=== PATIENT | female | born 1945 | race African-American/Black ===

== ENCOUNTER 2016-08-13 12:06 | Emergency (ER) | payer MEDICARE, OTHER ==
[~2016-08-13] VITALS: Ht 165.1 cm; Wt 59.0 kg
[~2016-08-13 12:06] MED LIST: ALIGN4 M1 PO; ALPRAZOLAM0.5 MG ORAL; AMITRIPTYLINE25 MG ORAL; ANUSOL-HC25 MG RECTAL; ASPIR 8181 MG ORAL; CARAFATE1 G1 ORAL; CITRACAL + D E1 EACH PO; COLACE100 MG ORAL; CREON DR 24,001 EACH PO; DEXILANT60 MG ORAL; DICYCLOMIN10 MG/5 M1 PO; DILAUDID4 MG ORAL; DIOVAN40 MG ORAL; FLAGYL500 MG ORAL; FLOMAX0.4 MG ORAL; FLOMAX0.4 MG PO; FOSAMAX70 MG ORAL; LEVAQUIN250 M1 ORAL; LINZESS145 MCG PO; LOVENOX120 MG/0.8 SUBQ; LYRICA100 MG ORAL; METFORMIN HCL500 M1 ORAL; MIRALAX17 GM ORAL; NORVASC5 MG ORAL; OXYCODONE HCL30 MG ORAL; OXYCONTIN40 M1 ORAL; OXYCONTIN60 MG ORAL; PROTONIX40 MG ORAL; REGLAN5 MG ORAL; TIZANIDINE HCL4 MG ORAL; VANCOMYCIN; VITAMIN D250000 UNI1 ORAL; VOLTAREN100 G1 TP; XARELTO10 MG ORAL; ZOFRAN4 M3 PO; ZOFRAN4 MG ORAL; ZOFRAN8 MG ORAL; lyrica PO
--- NOTE | 2016-08-13 12:44 | Emergency Room Report ---
History of Present Illness General Chief Complaint: Back Pain-No Injury Source: Patient, Medical Record (Dyana Putnam) Present Illness HPI 71-year-old female presents to emergency Department complaining of exacerbation of her chronic back pain. Patient states she was sent to ER for pain injection. Patient states she is currently being seen by Dr. Osborn and a pain management doctor for chronic back pain sustained in 1999 and patient has had a total of 3 surgeries and is having a fourth surgery currently planned. Patient states she takes oral Dilaudid 2 mg intermittently as needed for pain. Pt reports 10/10 lower back pain that radiates down into the left leg with certain positions. Patient states she took one yesterday before bed and this morning with no relief. Patient states she called her doctor this morning and he told her to go to the ER for an injection. Patient denies fall or new injury patient states she believes her pain was exacerbated after going grocery shopping yesterday. Denies numbness tingling or loss of sensation or gross motor movements of the extremities, incontinence of bowel or bladder. Denies CP , Palpitations, LOC, AMS, dizziness, Changes in Vision, Sensation, paresthesias , or a sudden severe headache. She reports history of anemia, prediabetes she denies history of cancer. Denies nausea, vomiting, fevers, chills. (Dyana Putnam) Allergies: Coded Allergies: AMOXICILLIN (Verified Allergy, Unknown, RASH, 06/29/14) CORTISONE (Verified Allergy, Unknown, 06/29/14) KETOROLAC (Verified Allergy, Unknown, 06/29/14) PENICILLINS (Verified Allergy, Unknown, 06/29/14) Patient History Past Medical History: see triage record Past Surgical History: none Pertinent Family History: none Now: No Immunizations: UTD Reviewed Nursing Documentation: PMH: Agreed, PSxH: Agreed (Dyana Putnam) Nursing Documentation-PMH Past Medical History: No History, Except For Hx Cardiac Problems: Yes - Anemia Hx Hypertension: Yes Hx Pacemaker: No Hx Asthma: No - LUPUS, ARTHRITIS Hx COPD: Yes Hx Diabetes: Yes Hx Cancer: Yes Hx Gastrointestinal Problems: No - Pancreatitis Hx Dialysis: No Hx Neurological Problems: Yes Hx Transient Ischemic Attacks: Yes Hx Seizures: Yes - 20 yrs ago Hx Vertigo: Yes Hx Headaches: Yes Hx Weakness: Yes (Dyana Putnam) Review of Systems All Other Systems: negative except mentioned in HPI (Dyana Putnam) Physical Exam Vital Signs Date Time Temp Pulse Resp B/P Pulse Ox O2 Delivery O2 Flow Rate FiO2 08/13/16 12:21 98.2 75 16 144/69 98 Room Air Sp02 EP Interpretation: reviewed, normal General Appearance: no apparent distress, alert, GCS 15, non-toxic Head: normocephalic, atraumatic Eyes: bilateral eye PERRL, bilateral eye normal inspection ENT: hearing grossly normal, normal pharynx, no angioedema, normal voice Neck: full range of motion, supple/symm/no masses Respiratory: chest non-tender, lungs clear, normal breath sounds, speaking full sentences Cardiovascular #1: regular rate, rhythm, no edema Gastrointestinal: normal bowel sounds, non tender, soft, no guarding, no rebound Rectal: deferred Genitourinary: normal inspection, no CVA tenderness Musculoskeletal: back normal, gait/station normal, normal range of motion, no calf tenderness, tender - midline and left paraspinal TTP with surgical scar noted in the Lumbar spinal area, no Thoracic or cervical midline TTP. Neurologic: alert, oriented x3, responsive, motor strength/tone normal, sensory intact, speech normal Psychiatric: judgement/insight normal, memory normal, mood/affect normal, no suicidal/homicidal ideation Reflexes: 4+ bicep (R), 4+ bicep (L), 4+ tricep (R), 4+ tricep (L), 4+ knee (R) , 4+ knee (L) Skin: normal color, no rash, warm/dry, well hydrated Lymphatic: no adenopathy (Dyana Putnam) Medical Decision Making PA Attestation Dr. vogel is my supervising Physician whom patient management has been discussed with. (Dyana Putnam) Medicare Attestation The history of Natalee Dowling has been reviewed and management options for her have been examined and discussed by Tr Morse. I have personally examined and interviewed the patient. (TR MORSE M.D.) Diagnostic Impression: Primary Impression: Low back pain Qualified Codes: M54.42 - Lumbago with sciatica, left side; G89.29 - Other chronic pain ER Course Patient presents to the emergency department complaining of exacerbation of ther chronic back pain x 2 day(s) Ddx considered: epidural abscess, fracture, sprain/strain, meningitis, spinal chord injury, Sciatica Vital signs reviewed and are WNL during ED visit. Pt. is afebrile with no signs of infection No new symptoms, and denies recent trauma. No saddle anesthesia noted, Pt. denies incontinence Neurovascular is intact ROM is limited due to pain * Mild Tenderness to palpation to paraspinal muscles of the lower back, no spinous process tenderness, no midline tenderness. *Pt. describes pain today as moderate and radiates across the lower back. ORDERS: none warranted at this time. INTERVENTIONS: - 1gm Dilaudid IM D/W Pt. that for further pain management is it recommended to consult PCP or a Chronic Pain management doctor. A provider who can safely prescribe controlled substances with close follow up. DISCHARGE: At this time pt. is stable for d/c to home. Will provide printed patient care instructions, and any necessary prescriptions. Care plan and follow up instructions have been discussed with the patient prior to discharge. (Dyana Putnam) Last Vital Signs Date Time Temp Pulse Resp B/P Pulse Ox O2 Delivery O2 Flow Rate FiO2 08/13/16 12:21 98.2 75 16 144/69 98 Room Air (Dyana Putnam) Disposition: HOME, SELF-CARE Condition: Stable Scripts Acetaminophen* (TYLENOL EXTRA STRENGTH*) 500 Mg Tablet 500 MG ORAL Q6H, #20 TAB 0 Refills Prov: Dyana Putnam 08/13/16 Patient Instructions: Back Pain, Adult Additional Instructions: Take medications as directed. Follow up with PCP or chronic pain management doctor for evaluation with-in 3 days Return sooner to ED if new symptoms occur, or current symptoms become worse. Dyana Putnam Aug 13, 2016 12:44 TR MORSE M.D. Aug 15, 2016 20:43
[2016-08-13] MEDS ORDERED: HYDROmorphone 1mg/ml Carpuject IM ONE ×2 (12:45→13:00)
[2016-08-13 13:04] VITALS: BP 142/68
[2016-08-13] MEDS ORDERED: TYLENOL EXTRA500 MG ORAL (13:05)
[2016-10-28] MEDS ORDERED: muscle relaxant PO (09:18)
== END 2016-08-13 13:24 | disposition home or self-care (01) ==
LOC: EMR 12:48
DX: M54.5 Low back pain (principal); G89.29 Other chronic pain; I10 Essential (primary) hypertension; J44.9 Chronic obstructive pulmonary disease, unspecified; Z86.73 Personal history of transient ischemic attack (TIA), and cerebral infarction without residual deficits
CPT/HCPCS: 96372; 99283; J1170

== ENCOUNTER → 2016-09-10 | Outpatient (CLI) | payer MEDICARE, OTHER ==
[~2016-09-10] MED LIST changes: +TYLENOL EXTRA500 MG ORAL; +muscle relaxant PO
--- NOTE | 2016-09-10 13:30 | Diagnostic Imaging Report ---
Indications: Cough Technique: AP and lateral chest Findings: Comparison: None Cardiac silhouette remains normal in size. Pulmonary vasculature remains within normal limits. Lungs and pleura remain clear. Mild calcification of the aortic arch is unchanged. Left chest wall Port-A-Cath, spinal stimulator leads again noted. IMPRESSION: No evidence of acute disease, unchanged Stable chronic changes as described
== END | disposition home or self-care (01) ==
LOC: RAD 11:33
DX: I10 Essential (primary) hypertension (principal); R05 Cough
CPT/HCPCS: 71020

== ENCOUNTER → 2016-10-28 | Outpatient (CLI) | payer MEDICARE, OTHER ==
[2016-10-28 09:13] VITALS: BP 144/54
--- NOTE | 2016-10-28 10:59 | General Progress Note ---
Assessment/Plan Problem List: (1) GERD (gastroesophageal reflux disease) ICD Codes: K21.9 - Gastro-esophageal reflux disease without esophagitis SNOMED: 174751946 (2) Anemia ICD Codes: D64.9 - Anemia SNOMED: 991918971 (3) Lupus ICD Codes: M32.9 - Systemic lupus erythematosus, unspecified SNOMED: 78432907 (4) DVT (deep venous thrombosis) ICD Codes: I82.409 - DVT (deep venous thrombosis) SNOMED: 377824881 (5) Chronic constipation ICD Codes: K59.09 - Other constipation SNOMED: 873635387 Assessment/Plan continue miralax fu labs fu prn Subjective ROS Limited/Unobtainable: Yes Allergies: Coded Allergies: AMOXICILLIN (Verified Allergy, Unknown, RASH, 06/29/14) CORTISONE (Verified Allergy, Unknown, 06/29/14) KETOROLAC (Verified Allergy, Unknown, 06/29/14) PENICILLINS (Verified Allergy, Unknown, 06/29/14) Subjective feeling good Objective Last 24 Hour Vital Signs Date Time Temp Pulse Resp B/P Pulse Ox O2 Delivery O2 Flow Rate FiO2 10/28/16 09:13 98.4 68 16 144/54 General Appearance: alert EENT: normal ENT inspection Neck: supple Cardiovascular: normal rate Respiratory/Chest: lungs clear Abdomen: normal bowel sounds, non tender, soft Extremities: non-tender RAHEEM YOUNG Oct 28, 2016 10:59
== END | disposition home or self-care (01) ==
LOC: PAN 09:05
DX: K21.9 Gastro-esophageal reflux disease without esophagitis (principal); D64.9 Anemia, unspecified; M32.9 Systemic lupus erythematosus, unspecified; I82.409 Acute embolism and thrombosis of unspecified deep veins of unspecified lower extremity; K59.09 Other constipation; Z88.0 Allergy status to penicillin; Z88.8 Allergy status to other drugs, medicaments and biological substances
CPT/HCPCS: 99211

== ENCOUNTER → 2016-12-02 | Outpatient (CLI) | payer MEDICARE, OTHER ==
[~2016-12-02] MED LIST changes: +PROTONIX20 MG ORAL
[2016-12-02 09:36] VITALS: BP 138/58
--- NOTE | 2016-12-02 12:01 | GI Progress Note ---
Assessment/Plan Problems: (1) Gastritis ICD Codes: K29.70 - Gastritis, unspecified, without bleeding SNOMED: 6738433 (2) Chronic pancreatitis ICD Codes: K86.1 - Other chronic pancreatitis SNOMED: 626758145 (3) Chronic constipation ICD Codes: K59.09 - Other constipation SNOMED: 230107112 (4) Chronic pain ICD Codes: G89.29 - Chronic pain SNOMED: 74591858 (5) Lupus ICD Codes: M32.9 - Systemic lupus erythematosus, unspecified SNOMED: 54893652 (6) GERD (gastroesophageal reflux disease) ICD Codes: K21.9 - Gastro-esophageal reflux disease without esophagitis SNOMED: 533078017 (7) Anemia ICD Codes: D64.9 - Anemia SNOMED: 006873559 (8) GERD (gastroesophageal reflux disease) ICD Codes: K21.9 - GERD (gastroesophageal reflux disease) SNOMED: 790613605 Status: doing well, stable Status Narrative Seen with Dr. Victoria. Assessment/Plan Creon trial cont miralax prn pt being seen by Pain mgmt RTC x 1 month Subjective Subjective occasional constipation, uses miralax prn and works well patient taken Dilaudid/oxycodone for back pain Objective Last 24 Hour Vital Signs Date Time Temp Pulse Resp B/P Pulse Ox O2 Delivery O2 Flow Rate FiO2 12/02/16 09:36 98.0 69 18 138/58 100 General Appearance: no apparent distress, alert Cardiovascular: normal rate Respiratory/Chest: normal breath sounds Abdominal Exam: normal bowel sounds, non tender, soft Extremities: normal range of motion Objective Recent discharge from [facility] 11/27/16 for pancreatitis. Yenifer Henry NFaina December 02, 2016 12:01
== END | disposition home or self-care (01) ==
LOC: PAN 09:17
DX: K29.70 Gastritis, unspecified, without bleeding (principal); K86.1 Other chronic pancreatitis; K59.09 Other constipation; G89.29 Other chronic pain; M32.9 Systemic lupus erythematosus, unspecified; K21.9 Gastro-esophageal reflux disease without esophagitis; D64.9 Anemia, unspecified; M54.9 Dorsalgia, unspecified
CPT/HCPCS: 99211

== ENCOUNTER 2017-07-23 11:48 | Emergency (ER) | payer MEDICARE, OTHER ==
[~2017-07-23] VITALS: Ht 165.1 cm; Wt 59.0 kg
[2017-07-23] MEDS ORDERED: GABAPENTIN300 MG ORAL (13:08)
[2017-07-23] MEDS ORDERED: LIDODERM700 M1 TOPIC (13:08)
[2017-07-23] MEDS ORDERED: ROBAXIN-750750 MG PO (13:08)
--- NOTE | 2017-07-23 13:08 | Diagnostic Imaging Report ---
Indication: Reason For Exam: PAIN Technique: 3 views of the cervical spine Comparison: 11/07/2005 Findings: Bony alignment is normal. No prevertebral soft tissue swelling. Vertebral body heights are preserved. Disc spaces are preserved. No acute fractures. No dislocations. Bones are osteoporotic. A left chest port catheter is again demonstrated Impression: Acute bony trauma Osteoporosis Left chest port catheter
--- NOTE | 2017-07-23 13:09 | Emergency Room Report ---
History of Present Illness General Chief Complaint: Pain Present Illness HPI 72 y/o female c/o right sided neck pain x this morning. States she woke up with a stinker and took 4 of PO Dilaudid and 10mg hydrocodone w/o improvement of sxs. States she has allergies to toradol. Worse with movement. No relieving factors. Patient is requesting IM dilaudid. Patient has a hx of back problems with previous laminectomies. States she sees pain mgmt. Declines wanting trigger point. Denies any trauma. Patient denies any back pain, headache, CP, SOB, numbness, tingling, pressure, paralysis, cyanosis, bruising, loss of sensation, or loss of range of motion. Allergies: Coded Allergies: AMOXICILLIN (Verified Allergy, Unknown, RASH, 06/29/14) CORTISONE (Verified Allergy, Unknown, 06/29/14) KETOROLAC (Verified Allergy, Unknown, 06/29/14) PENICILLINS (Verified Allergy, Unknown, 06/29/14) Patient History Past Medical History: see triage record Past Surgical History: other Pertinent Family History: none Reviewed Nursing Documentation: PMH: Agreed, PSxH: Agreed Nursing Documentation-PMH Hx Cardiac Problems: Yes - Anemia Hx Hypertension: Yes Hx Pacemaker: No Hx Asthma: No - LUPUS, ARTHRITIS Hx COPD: Yes Hx Diabetes: Yes Hx Cancer: Yes Hx Gastrointestinal Problems: No - Pancreatitis Hx Dialysis: No Hx Neurological Problems: Yes Hx Transient Ischemic Attacks: Yes Hx Seizures: Yes - 20 yrs ago Hx Vertigo: Yes Hx Headaches: Yes Hx Weakness: Yes Review of Systems All Other Systems: negative except mentioned in HPI Physical Exam Vital Signs Date Time Temp Pulse Resp B/P (MAP) Pulse Ox O2 Delivery O2 Flow Rate FiO2 07/23/17 12:01 97.9 77 20 122/50 99 Room Air Sp02 EP Interpretation: reviewed, normal General Appearance: no apparent distress, alert, GCS 15, non-toxic Head: normocephalic, atraumatic Eyes: bilateral eye normal inspection, bilateral eye PERRL ENT: hearing grossly normal, normal pharynx, no angioedema, normal voice Neck: full range of motion, no bony tend, supple/symm/no masses, tender lateral Respiratory: chest non-tender, lungs clear, normal breath sounds, speaking full sentences Cardiovascular #1: regular rate, rhythm, no edema Musculoskeletal: back normal - presence of old surgical scars, gait/station normal, normal range of motion, non-tender Neurologic: alert, oriented x3, responsive, motor strength/tone normal, sensory intact, speech normal Psychiatric: judgement/insight normal, memory normal, mood/affect normal, no suicidal/homicidal ideation Skin: normal color, no rash, warm/dry, well hydrated Medical Decision Making PA Attestation Dr. Warner my supervising physician with whom patient management has been discussed with. Diagnostic Impression: Primary Impression: Cervical radiculitis Additional Impressions: Cervical strain Qualified Codes: S16.1XXA - Strain of muscle, fascia and tendon at neck level , initial encounter Back muscle spasm ER Course Pt. presents to the ED c/o neck pain Ddx considered but are not limited to fracture, contusion, laceration, sprain, strain, cervical / spinal fracture, interracial hemorrhage Vital signs: are WNL, pt. is afebrile H&PE are most consistent with cervical strain / spasm ORDERS: none required at this time, the diagnosis is clinical ED INTERVENTIONS: XR of cervical spine shows no acute process. Osteroperosis present. DISCHARGE: At this time pt. is stable for d/c to home. Will provide printed patient care instructions, and any necessary prescriptions. Care plan and follow up instructions have been discussed with the patient prior to discharge. Other X-Ray Diagnostic Results Other X-Ray Diagnostic Results : X-Ray ordered: C-Spine # of Views/Limited Vs Complete: 3 View Indication: Pain EP Interpretation: Yes PA Xray: Interpretation reviewed, by supervising MD, and agrees with findings. Interpretation: no dislocation, no fractures, other - osteoperosis Impression: No acute disease Electronically Signed by: Law Cobb PA-C Last Vital Signs Date Time Temp Pulse Resp B/P (MAP) Pulse Ox O2 Delivery O2 Flow Rate FiO2 07/23/17 12:01 97.9 77 20 122/50 99 Room Air Disposition: HOME, SELF-CARE Condition: Stable Scripts Lidocaine (Lidoderm) 1 Each Adh..patch 1 PATCH TOPIC DAILY, #7 PATCH 0 Refills Patch(es) may remain in place for up to 12 hours in any 24-hour period. Prov: LAW COBB P.A. 07/23/17 Gabapentin* (GABAPENTIN*) 300 Mg Capsule 300 MG ORAL THREE TIMES A DAY for 10 Days, #30 CAP 0 Refills Prov: LAW COBB 07/23/17 Methocarbamol* (ROBAXIN-750*) 750 Mg Tablet 750 MG PO TID, #30 TAB 0 Refills Prov: LAW COBB 07/23/17 Referrals: NOT CHOSEN IPA/MD,REFERRING (PCP) Patient Instructions: Cervical Strain and Sprain With Rehab-SportsMed Additional Instructions: Take medication as directed. Advise patient to use RICE therapy and avoid exercises for the next 2-3 weeks to help rest the leg. Patient instructed to massage the muscles that are tight or tense, put ice for 5-7 minutes or a frozen bag of peas or cold gel pack on the area for 20 minutes at a time, a few times a day, put heat on the area to reduce pain and stiffness by either taking a hot shower or hot bath, or put a hot towel on the area for no more than 20 minutes at a time. Patient instructed to not use anything too hot that could burn your skin. LAW COBB Jul 23, 2017 13:08
[2017-07-23 13:15] VITALS: BP 118/70
== END 2017-07-23 13:15 | disposition home or self-care (01) ==
LOC: EMR 12:45
DX: M54.12 Radiculopathy, cervical region (principal); S16.1XXA Strain of muscle, fascia and tendon at neck level, initial encounter; X58.XXXA Exposure to other specified factors, initial encounter; Y92.9 Unspecified place or not applicable; Z88.0 Allergy status to penicillin; Z88.8 Allergy status to other drugs, medicaments and biological substances; M32.9 Systemic lupus erythematosus, unspecified; I10 Essential (primary) hypertension; E11.9 Type 2 diabetes mellitus without complications; J44.9 Chronic obstructive pulmonary disease, unspecified
CPT/HCPCS: 72040; 99284

== ENCOUNTER 2017-10-07 15:22 | Inpatient (IN) | payer MEDICARE, MEDICAID ==
[~2017-10-07] VITALS: Ht 165.1 cm; Wt 59.0 kg
[~2017-10-07 15:22] MED LIST changes: +GABAPENTIN300 MG ORAL; +LIDODERM700 M1 TOPIC; +ROBAXIN-750750 MG PO
--- NOTE | 2017-10-07 16:14 | Diagnostic Imaging Report ---
Indication: Chest pain Comparison: 09/10/2016 A single view chest radiograph was obtained. Findings: The heart is mildly enlarged. Spinal stimulation wires noted. There is a left chest port present. Small patch of atelectasis versus infiltrate suspected at the right lung base. Surgical clips in the right upper quadrant of abdomen. Bones are osteopenic. IMPRESSION: Atelectasis versus infiltrate right lung base. Other chronic findings unchanged
[2017-10-07 16:41] LABS: HEMATOCRIT 33.5 % (37.0-47.0); HEMOGLOBIN 11.2 G/DL (12.0-16.0); MEAN CORPUSCULAR VOLUME 87 FL (80-99); PLATELET COUNT 161 K/UL (150-450); RED BLOOD COUNT 3.83 M/UL (4.20-5.40); RED CELL DISTRIBUTION WIDTH 13.2 % (11.6-14.8); WHITE BLOOD COUNT 3.2 K/UL (4.8-10.8)
[2017-10-07 16:43] VITALS: BP 148/53
--- NOTE | 2017-10-07 16:54 | Emergency Room Report ---
History of Present Illness General Chief Complaint: Chest Pain Source: Patient, EMS Present Illness HPI This patient has a complicated medical history. She has chronic pain. She did see her workman's comp physician today. She states when she got home she developed left-sided chest pain. She is brought in by EMS. She was given aspirin and nitroglycerin prior to arrival. According to EMS her pain had improved, however during my history she states that her symptoms are not improved. She denies recent illness. She denies cough or congestion. She denies fever or chills. She has no other complaints. Allergies: Coded Allergies: AMOXICILLIN (Verified Allergy, Unknown, RASH, 06/29/14) CORTISONE (Verified Allergy, Unknown, 06/29/14) KETOROLAC (Verified Allergy, Unknown, 06/29/14) PENICILLINS (Verified Allergy, Unknown, 06/29/14) Patient History Past Medical History: see triage record, old chart reviewed, HTN, CAD, GERD, CVA/TIA, seizures, other - CVA/TIA Past Surgical History: isabelle, hysterectomy Social History: Reports: smoking Reviewed Nursing Documentation: PMH: Agreed, PSxH: Agreed Nursing Documentation-PMH Hx Cardiac Problems: Yes - Anemia Hx Hypertension: Yes Hx Pacemaker: No Hx Asthma: No - LUPUS, ARTHRITIS Hx COPD: Yes Hx Diabetes: Yes Hx Cancer: Yes Hx Gastrointestinal Problems: No - Pancreatitis Hx Dialysis: No Hx Neurological Problems: Yes Hx Transient Ischemic Attacks: Yes Hx Seizures: Yes - 20 yrs ago Hx Vertigo: Yes Hx Headaches: Yes Hx Weakness: Yes Review of Systems All Other Systems: negative except mentioned in HPI Physical Exam Vital Signs Date Time Temp Pulse Resp B/P (MAP) Pulse Ox O2 Delivery O2 Flow Rate FiO2 10/07/17 15:16 98.6 78 16 140/90 98 Room Air 98.6 Sp02 EP Interpretation: reviewed, normal General Appearance: no apparent distress, alert, GCS 15, non-toxic Head: normocephalic, atraumatic Eyes: bilateral eye normal inspection, bilateral eye PERRL ENT: hearing grossly normal, normal pharynx, no angioedema, normal voice Neck: full range of motion, supple/symm/no masses Respiratory: chest non-tender, lungs clear, normal breath sounds, speaking full sentences Cardiovascular #1: regular rate, rhythm, no edema Gastrointestinal: normal bowel sounds, non tender, soft, non-distended, no guarding, no rebound Rectal: deferred Musculoskeletal: back normal, normal range of motion, non-tender Neurologic: alert, oriented x3, responsive, motor strength/tone normal, sensory intact, speech normal Psychiatric: judgement/insight normal, memory normal, mood/affect normal, no suicidal/homicidal ideation Skin: normal color, no rash, warm/dry, well hydrated Medical Decision Making Diagnostic Impression: Primary Impression: Chest pain ER Course This patient presents with chest pain. Initial workup is negative to include EKG, troponin and chest x-ray. The patient presented early in the onset of her chest pain. Patient does have a history of chronic pain and chronic narcotic use to include Dilaudid. Regardless, the patient does have a history of lupus, DVT and TIA and is high risk for acute coronary syndrome. Therefore, she will be admitted for further evaluation and treatment of her chest pain and to rule out acute coronary syndrome. Laboratory Tests Test 10/07/17 16:11 White Blood Count 3.2 K/UL (4.8-10.8) L Red Blood Count 3.83 M/UL (4.20-5.40) L Hemoglobin 11.2 G/DL (12.0-16.0) L Hematocrit 33.5 % (37.0-47.0) L Mean Corpuscular Volume 87 FL (80-99) Mean Corpuscular Hemoglobin 29.3 PG (27.0-31.0) Mean Corpuscular Hemoglobin Concent 33.6 G/DL (32.0-36.0) Red Cell Distribution Width 13.2 % (11.6-14.8) Platelet Count 161 K/UL (150-450) Mean Platelet Volume 8.0 FL (6.5-10.1) Neutrophils (%) (Auto) % (45.0-75.0) Lymphocytes (%) (Auto) % (20.0-45.0) Monocytes (%) (Auto) % (1.0-10.0) Eosinophils (%) (Auto) % (0.0-3.0) Basophils (%) (Auto) % (0.0-2.0) Differential Total Cells Counted 100 Neutrophils % (Manual) 66 % (45-75) Lymphocytes % (Manual) 20 % (20-45) Monocytes % (Manual) 14 % (1-10) H Eosinophils % (Manual) 0 % (0-3) Basophils % (Manual) 0 % (0-2) Band Neutrophils 0 % (0-8) Platelet Estimate Adequate Platelet Morphology Normal Hypochromasia 1+ Anisocytosis 1+ Sodium Level 140 MMOL/L (136-145) Potassium Level 3.4 MMOL/L (3.5-5.1) L Chloride Level 105 MMOL/L (98-107) Carbon Dioxide Level 29 MMOL/L (21-32) Anion Gap 6 mmol/L (5-15) Blood Urea Nitrogen 11 mg/dL (7-18) Creatinine 1.2 MG/DL (0.55-1.30) Estimate Glomerular Filtration Rate mL/min (>60) Glucose Level 142 MG/DL (74-106) H Calcium Level 9.1 MG/DL (8.5-10.1) Total Bilirubin 0.3 MG/DL (0.2-1.0) Aspartate Amino Transferase (AST) 30 U/L (15-37) Alanine Aminotransferase (ALT) 29 U/L (12-78) Alkaline Phosphatase 90 U/L (46-116) Total Creatine Kinase 88 U/L (26-308) Creatine Kinase MB 0.7 NG/ML (0.0-3.6) Creatine Kinase MB Relative Index 0.7 Troponin I 0.000 ng/mL (0.000-0.056) Total Protein 7.4 G/DL (6.4-8.2) Albumin 3.5 G/DL (3.4-5.0) Globulin 3.9 g/dL Albumin/Globulin Ratio 0.9 (1.0-2.7) L EKG Diagnostic Results Rate: normal Rhythm: NSR ST Segments: no acute changes Other Impression NSST findings. Rhythm Strip Diag. Results EP Interpretation: yes Rate: 60's Rhythm: NSR, no PVC's, no ectopy Chest X-Ray Diagnostic Results Chest X-Ray Diagnostic Results : Chest X-Ray Ordered: Yes # of Views/Limited/Complete: 1 View Indication: Chest Pain EP Interpretation: No Interpretation: no effusion, no pneumothorax, other Impression: Other - Questionable atelectasis vs opacity in RLL Last Vital Signs Date Time Temp Pulse Resp B/P (MAP) Pulse Ox O2 Delivery O2 Flow Rate FiO2 10/07/17 15:25 79 16 Room Air 10/07/17 15:16 98.6 140/90 98 98.6 Disposition: ADMITTED INPATIENT Condition: Stable Referrals: TY STANLEY (PCP) YA JAMESON D.O. Oct 07, 2017 16:54
[2017-10-07 16:56] LABS: ANION GAP 6 mmol/L (5-15); BLOOD UREA NITROGEN 11 mg/dL (7-18); CALCIUM 9.1 MG/DL (8.5-10.1); CARBON DIOXIDE 29 MMOL/L (21-32); CHLORIDE 105 MMOL/L (98-107); CREATININE 1.2 MG/DL (0.55-1.30); POTASSIUM 3.4 MMOL/L (3.5-5.1); SODIUM 140 MMOL/L (136-145)
[2017-10-07] MEDS ORDERED: ATORVASTATIN CA10 MG ORAL (17:07)
[2017-10-07] MEDS ORDERED: FOSAMAX70 MG ORAL (17:07)
[2017-10-07] MEDS ORDERED: XANAX0.25 MG ORAL (17:07)
[2017-10-07] MEDS ORDERED: ZOFRAN4 M3 ORAL (17:07)
[2017-10-07 17:09] LABS: ALANINE AMINOTRANSFERASE 29 U/L (12-78); ALBUMIN 3.5 G/DL (3.4-5.0); ALBUMIN/GLOBULIN RATIO 0.9 (1.0-2.7); ALKALINE PHOSPHATASE 90 U/L (46-116); ASPARTATE AMINO TRANSFERASE 30 U/L (15-37); BILIRUBIN,TOTAL 0.3 MG/DL (0.2-1.0); CKMB 0.7 NG/ML (0.0-3.6); CREATINE KINASE 88 U/L (26-308)
[2017-10-07] MEDS: Morphine Sulfate 2mg/ml Inj IVP ONE ×2 (18:08→18:29)
[2017-10-07] MEDS ORDERED: Morphine Sulfate 4mg/ml Inj ONE (18:13)
--- NOTE | 2017-10-07 18:38 | Cardiac Electrophysiology PN ---
Subjective Subjective Dictated [id number] Objective Last 24 Hour Vital Signs Date Time Temp Pulse Resp B/P (MAP) Pulse Ox O2 Delivery O2 Flow Rate FiO2 10/07/17 18:29 97.6 10/07/17 16:43 97.6 78 14 148/53 99 Room Air 97.6 10/07/17 15:25 79 16 Room Air 10/07/17 15:16 98.6 78 16 140/90 98 Room Air 98.6 Laboratory Tests Test 10/07/17 16:11 10/07/17 18:20 White Blood Count 3.2 K/UL (4.8-10.8) L Red Blood Count 3.83 M/UL (4.20-5.40) L Hemoglobin 11.2 G/DL (12.0-16.0) L Hematocrit 33.5 % (37.0-47.0) L Mean Corpuscular Volume 87 FL (80-99) Mean Corpuscular Hemoglobin 29.3 PG (27.0-31.0) Mean Corpuscular Hemoglobin Concent 33.6 G/DL (32.0-36.0) Red Cell Distribution Width 13.2 % (11.6-14.8) Platelet Count 161 K/UL (150-450) Mean Platelet Volume 8.0 FL (6.5-10.1) Neutrophils (%) (Auto) % (45.0-75.0) Lymphocytes (%) (Auto) % (20.0-45.0) Monocytes (%) (Auto) % (1.0-10.0) Eosinophils (%) (Auto) % (0.0-3.0) Basophils (%) (Auto) % (0.0-2.0) Differential Total Cells Counted 100 Neutrophils % (Manual) 66 % (45-75) Lymphocytes % (Manual) 20 % (20-45) Monocytes % (Manual) 14 % (1-10) H Eosinophils % (Manual) 0 % (0-3) Basophils % (Manual) 0 % (0-2) Band Neutrophils 0 % (0-8) Platelet Estimate Adequate Platelet Morphology Normal Hypochromasia 1+ Anisocytosis 1+ Sodium Level 140 MMOL/L (136-145) Potassium Level 3.4 MMOL/L (3.5-5.1) L Chloride Level 105 MMOL/L (98-107) Carbon Dioxide Level 29 MMOL/L (21-32) Anion Gap 6 mmol/L (5-15) Blood Urea Nitrogen 11 mg/dL (7-18) Creatinine 1.2 MG/DL (0.55-1.30) Estimat Glomerular Filtration Rate mL/min (>60) Glucose Level 142 MG/DL (74-106) H Calcium Level 9.1 MG/DL (8.5-10.1) Total Bilirubin 0.3 MG/DL (0.2-1.0) Aspartate Amino Transf (AST/SGOT) 30 U/L (15-37) Alanine Aminotransferase (ALT/SGPT) 29 U/L (12-78) Alkaline Phosphatase 90 U/L (46-116) Total Creatine Kinase 88 U/L (26-308) Creatine Kinase MB 0.7 NG/ML (0.0-3.6) Creatine Kinase MB Relative Index 0.7 Troponin I 0.000 ng/mL (0.000-0.056) Total Protein 7.4 G/DL (6.4-8.2) Albumin 3.5 G/DL (3.4-5.0) Globulin 3.9 g/dL Albumin/Globulin Ratio 0.9 (1.0-2.7) L Prothrombin Time Pending Prothromb Time International Ratio Pending Activated Partial Thromboplast Time Pending EDGAR RAMOS Oct 07, 2017 18:38
[2017-10-07 19:01] VITALS: BP 147/65
[2017-10-07] MEDS ORDERED: Milk of Magnesia 30ml Ud ORAL PRN (20:45)
[2017-10-07] MEDS: NovoLOG Insulin Flexpen SUBQ SCH (21:00)
[2017-10-07] MEDS: Atorvastatin 20mg tab ORAL SCH (21:36)
[2017-10-07] MEDS: HYDROmorphone 4mg tab ORAL PRN (21:39)
[2017-10-07] MEDS: ALPRAZolam 0.25mg tab ORAL PRN (23:22)
[2017-10-08] VITALS: BP 149/97
[2017-10-08 00:51] LABS: APPEARANCE,URINE CLEAR; BILIRUBIN, URINE NEGATIVE (NEGATIVE); COLOR,URINE PALE YELLOW; GLUCOSE, URINE (UA) NEGATIVE (NEGATIVE); KETONES,URINE NEGATIVE (NEGATIVE); LEUKOCYTE ESTERASE ,URINE 1+ (NEGATIVE); NITRITE,URINE NEGATIVE (NEGATIVE); PH,URINE 7 (4.5-8.0); PROTEIN,URINE NEGATIVE (NEGATIVE); UROBILINOGEN,URINE NORMAL MG/DL (0.0-1.0)
[2017-10-08 04:06] VITALS: BP 140/54
--- NOTE | 2017-10-08 05:00 | Consultation ---
DATE OF CONSULTATION: 10/07/2017 CARDIOLOGY CONSULTATION CONSULTING PHYSICIAN: Lennox Weaver M.D. REFERRING PHYSICIAN: Vito Malin M.D. REASON FOR CONSULTATION: Chest pain. HISTORY OF PRESENT ILLNESS: The patient is a 72-year-old lady with history of hypertension, history of DVT, and pulmonary embolism, who has been on anticoagulation with Xarelto as well as history of lupus and arthritis, there is a port in the chest for IV fluids and blood draws as she is very hard state. The patient has chronic pain and saw her Workman's Compensation physician, Dr. Osborn today and she went home. She got the left-sided chest pain and was brought in by paramedics. The patient took aspirin and nitroglycerin prior to arrival. In the emergency room, the patient's EKG showed sinus rhythm with nonspecific ST-T wave abnormalities. First set of the cardiac enzymes were negative. The patient was admitted and a Cardiology consultation was obtained for further evaluation and management. PAST MEDICAL HISTORY: 1. Hypertension. 2. Diabetes. 3. History of lupus and arthritis. 4. History of seizures 20 years ago. SOCIAL HISTORY: Denies smoking or drinking alcohol. FAMILY HISTORY: Noncontributory. REVIEW OF SYSTEMS: Negative other than what was mentioned in the history of present illness. PHYSICAL EXAMINATION: VITAL SIGNS: Blood pressure is 148/53, pulse 78, respirations 18, and temperature 97.6 degrees. HEAD AND NECK: Showed no JVD. LUNGS: Clear. CARDIOVASCULAR: Shows regular S1 and S2 with no gallop or murmur. There is a port in the anterior chest. ABDOMEN: Obese. EXTREMITIES: A 1+ pitting edema. LABORATORY DATA: Show white count of 3.2, hemoglobin 11.2, hematocrit 33.5, and platelet count of 161,000. Sodium 140, potassium 3.4, BUN , creatinine 1.5, and glucose 142. Troponin is negative. ASSESSMENT AND PLAN: 1. Chest pain. The pain is atypical. The first set of cardiac enzymes are negative. EKG showed nonspecific ST-T wave abnormalities. We will completely rule out myocardial infarction protocol. We will get an echocardiogram for further evaluation. 2. History of deep venous thrombosis and pulmonary embolism, on Xarelto that will be resumed. 3. Chronic pain. 4. History of diabetes, presently resolved. Currently, off antidiabetics. 5. Lupus and arthritis. Thank you very much, Dr. Malin, for allowing me to participate in the care of this patient. Please do not hesitate to contact me for any questions regarding my evaluation. Lennox Weaver M.D. DR: Gary JOB#: [id number] CC:
[2017-10-08] MEDS: NovoLOG Insulin Flexpen SUBQ SCH ×4 (06:30→21:00)
[2017-10-08 08:00] VITALS: BP 143/61
--- NOTE | 2017-10-08 08:10 | Consultation ---
Consult Note Assessment/Plan DICT [id number] ERROL HRONE M.D. Oct 08, 2017 08:10
[2017-10-08] MEDS: HYDROmorphone 4mg tab ORAL PRN ×2 (08:48→17:28)
[2017-10-08] MEDS: Docusate 100mg cap ORAL SCH ×2 (08:48→17:27)
[2017-10-08] MEDS: Xarelto 10mg tab ORAL SCH (08:48)
[2017-10-08] MEDS: Dyna-Hex 2% Top Sol 2oz TOPIC SCH (08:50)
[2017-10-08 09:51] LABS: HEMOGLOBIN 12.3 G/DL (12.0-16.0); MEAN CORPUSCULAR VOLUME 87 FL (80-99); PLATELET COUNT 172 K/UL (150-450); RED BLOOD COUNT 4.35 M/UL (4.20-5.40); RED CELL DISTRIBUTION WIDTH 13.2 % (11.6-14.8); WHITE BLOOD COUNT 2.2 K/UL (4.8-10.8)
[2017-10-08 10:17] LABS: ALANINE AMINOTRANSFERASE 31 U/L (12-78); ALBUMIN 3.3 G/DL (3.4-5.0); ALBUMIN/GLOBULIN RATIO 0.8 (1.0-2.7); ALKALINE PHOSPHATASE 82 U/L (46-116); ANION GAP 3 mmol/L (5-15); ASPARTATE AMINO TRANSFERASE 35 U/L (15-37); BILIRUBIN,TOTAL 0.5 MG/DL (0.2-1.0); BLOOD UREA NITROGEN 6 mg/dL (7-18); CALCIUM 9.1 MG/DL (8.5-10.1); CARBON DIOXIDE 31 MMOL/L (21-32); CHLORIDE 105 MMOL/L (98-107); CHOLESTEROL 115 MG/DL (< 200); CREATININE 1.1 MG/DL (0.55-1.30); HDL CHOLESTEROL 73 MG/DL (40-60); POTASSIUM 3.9 MMOL/L (3.5-5.1); SODIUM 139 MMOL/L (136-145); TRIGLYCERIDES 51 MG/DL (30-150)
[2017-10-08] MEDS: Miralax 17gm pkt ORAL SCH (10:39)
[2017-10-08 12:00] VITALS: BP 138/56
--- NOTE | 2017-10-08 12:02 | Wound Care Consultation ---
Wound Assessment Wound Assessment : Wound Number: 1 Wound Present on Admission: Yes New Wound: No Status Change of Wound: No Wound Location Body Site Modif: right Wound Location Body Site: sacral Wound Type: scar Pita Test: Does not Pita Wound Length: 1.0 Wound Width: 1.0 Percent of Wound [place]/Red: 100 - pink scar tissue Wound Drainage Amount: None Wound Drainage Odor: None/Absent Tissue Surrounding Wound: Intact Wound General Appearance: Open to air, Clean/Dry Wound Comment #1 right aspect sacral scar tissue- intact recommendation. -offload -assess for any change of condition -Keep clean and dry. -Follow up accordingly for any changes of condition noted. CHELSEA HERNANDEZ Oct 08, 2017 12:02
[2017-10-08] MEDS ORDERED: Lexiscan 0.4mg/5ml syringe IV ONE (15:15)
--- NOTE | 2017-10-08 15:15 | Cardiac Electrophysiology PN ---
Assessment/Plan Assessment/Plan 1. Chest pain. The pain is atypical. EKG showed nonspecific ST-T wave abnormalities. Ruled out myocardial infarction protocol. Echo showed EF 60%. If Chest Ct negative will schedule nuclear stress test for tomorrow 2. History of deep venous thrombosis and pulmonary embolism, on Xarelto Chest CT angio pending. . 3. Chronic pain. 4. History of diabetes, presently resolved. Currently, off antidiabetics. 5. Lupus and arthritis. CATIE rN Subjective Subjective Comfortable in NAD. Still has off and on chest pain. Objective Last 24 Hour Vital Signs Date Time Temp Pulse Resp B/P (MAP) Pulse Ox O2 Delivery O2 Flow Rate FiO2 10/08/17 12:00 98.2 62 18 138/56 98 Room Air 98.2 10/08/17 08:50 73 143/61 10/08/17 08:00 86 10/08/17 08:00 98.2 73 18 143/61 98 Room Air 98.2 10/08/17 04:06 97.7 60 20 140/54 99 Room Air 97.7 10/08/17 04:00 85 10/08/17 00:00 97.9 68 20 149/97 99 Room Air 97.9 10/08/17 00:00 89 10/07/17 21:36 79 145/68 10/07/17 20:00 92 10/07/17 19:01 98.1 84 18 147/65 99 Room Air 98.1 10/07/17 18:45 97.8 68 17 144/78 99 Room Air 10/07/17 18:29 97.6 10/07/17 16:43 97.6 78 14 148/53 99 Room Air 97.6 10/07/17 15:25 79 16 Room Air 10/07/17 15:16 98.6 78 16 140/90 98 Room Air 98.6 Intake and Output 10/07/17 10/08/17 19:00 07:00 Intake Total 120 ml Output Total 900 ml Balance -780 ml Intake Oral 120 ml Output Urine Total 900 ml # Voids 1 1 Laboratory Tests Test 10/07/17 16:11 10/07/17 18:20 10/08/17 00:00 10/08/17 09:00 White Blood Count 3.2 K/UL (4.8-10.8) L 2.2 K/UL (4.8-10.8) L Red Blood Count 3.83 M/UL (4.20-5.40) L 4.35 M/UL (4.20-5.40) Hemoglobin 11.2 G/DL (12.0-16.0) L 12.3 G/DL (12.0-16.0) Hematocrit 33.5 % (37.0-47.0) L 38.0 % (37.0-47.0) Mean Corpuscular Volume 87 FL (80-99) 87 FL (80-99) Mean Corpuscular Hemoglobin 29.3 PG (27.0-31.0) 28.3 PG (27.0-31.0) Mean Corpuscular Hemoglobin Concent 33.6 G/DL (32.0-36.0) 32.4 G/DL (32.0-36.0) Red Cell Distribution Width 13.2 % (11.6-14.8) 13.2 % (11.6-14.8) Platelet Count 161 K/UL (150-450) 172 K/UL (150-450) Mean Platelet Volume 8.0 FL (6.5-10.1) 7.3 FL (6.5-10.1) Neutrophils (%) (Auto) % (45.0-75.0) % (45.0-75.0) Lymphocytes (%) (Auto) % (20.0-45.0) % (20.0-45.0) Monocytes (%) (Auto) % (1.0-10.0) % (1.0-10.0) Eosinophils (%) (Auto) % (0.0-3.0) % (0.0-3.0) Basophils (%) (Auto) % (0.0-2.0) % (0.0-2.0) Differential Total Cells Counted 100 100 Neutrophils % (Manual) 66 % (45-75) 64 % (45-75) Lymphocytes % (Manual) 20 % (20-45) 26 % (20-45) Monocytes % (Manual) 14 % (1-10) H 6 % (1-10) Eosinophils % (Manual) 0 % (0-3) 4 % (0-3) H Basophils % (Manual) 0 % (0-2) 0 % (0-2) Band Neutrophils 0 % (0-8) 0 % (0-8) Platelet Estimate Adequate Adequate Platelet Morphology Normal Normal Hypochromasia 1+ Anisocytosis 1+ Sodium Level 140 MMOL/L (136-145) 139 MMOL/L (136-145) Potassium Level 3.4 MMOL/L (3.5-5.1) L 3.9 MMOL/L (3.5-5.1) Chloride Level 105 MMOL/L (98-107) 105 MMOL/L (98-107) Carbon Dioxide Level 29 MMOL/L (21-32) 31 MMOL/L (21-32) Anion Gap 6 mmol/L (5-15) 3 mmol/L (5-15) L Blood Urea Nitrogen 11 mg/dL (7-18) 6 mg/dL (7-18) L Creatinine 1.2 MG/DL (0.55-1.30) 1.1 MG/DL (0.55-1.30) Estimat Glomerular Filtration Rate mL/min (>60) mL/min (>60) Glucose Level 142 MG/DL (74-106) H 245 MG/DL (74-106) #H Calcium Level 9.1 MG/DL (8.5-10.1) 9.1 MG/DL (8.5-10.1) Total Bilirubin 0.3 MG/DL (0.2-1.0) 0.5 MG/DL (0.2-1.0) Aspartate Amino Transf (AST/SGOT) 30 U/L (15-37) 35 U/L (15-37) Alanine Aminotransferase (ALT/SGPT) 29 U/L (12-78) 31 U/L (12-78) Alkaline Phosphatase 90 U/L (46-116) 82 U/L (46-116) Total Creatine Kinase 88 U/L (26-308) Creatine Kinase MB 0.7 NG/ML (0.0-3.6) Creatine Kinase MB Relative Index 0.7 Troponin I 0.000 ng/mL (0.000-0.056) 0.000 ng/mL (0.000-0.056) Total Protein 7.4 G/DL (6.4-8.2) 7.5 G/DL (6.4-8.2) Albumin 3.5 G/DL (3.4-5.0) 3.3 G/DL (3.4-5.0) L Globulin 3.9 g/dL 4.2 g/dL Albumin/Globulin Ratio 0.9 (1.0-2.7) L 0.8 (1.0-2.7) L Prothrombin Time 10.6 SEC (9.30-11.50) Prothromb Time International Ratio 1.0 (0.9-1.1) Activated Partial Thromboplast Time 38 SEC (23-33) H Urine Color Pale yellow Urine Appearance Clear Urine pH 7 (4.5-8.0) Urine Specific [place] 1.010 (1.005-1.035) Urine Protein Negative (NEGATIVE) Urine Glucose (UA) Negative (NEGATIVE) Urine Ketones Negative (NEGATIVE) Urine Occult Blood Negative (NEGATIVE) Urine Nitrite Negative (NEGATIVE) Urine Bilirubin Negative (NEGATIVE) Urine Urobilinogen Normal MG/DL (0.0-1.0) Urine Leukocyte Esterase 1+ (NEGATIVE) H Urine RBC 0-2 /HPF (0 - 2) Urine WBC 0-2 /HPF (0 - 2) Urine Squamous Epithelial Cells Few /LPF (NONE/OCC) Urine Bacteria Few /HPF (NONE) Urine Opiates Screen Positive (NEGATIVE) H Urine Barbiturates Screen Negative (NEGATIVE) Phencyclidine (PCP) Screen Negative (NEGATIVE) Urine Amphetamines Screen Negative (NEGATIVE) Urine Benzodiazepines Screen Negative (NEGATIVE) Urine Cocaine Screen Negative (NEGATIVE) Urine Marijuana (THC) Screen Negative (NEGATIVE) Red Blood Cell Morphology Normal Hemoglobin A1c 7.4 % (4.3-6.0) H Triglycerides Level 51 MG/DL (30-150) Cholesterol Level 115 MG/DL (< 200) LDL Cholesterol 37 mg/dL (<100) HDL Cholesterol 73 MG/DL (40-60) H Cholesterol/HDL Ratio 1.6 (3.3-4.4) L Thyroid Stimulating Hormone (TSH) 0.534 uiU/mL (0.358-3.740) Test 10/08/17 09:40 D-Dimer 0.38 mg/L FEU (0.00-0.49) Objective HEAD AND NECK: No JVD. LUNGS: Clear. CARDIOVASCULAR: Regular S1 and S2 with no gallop or murmur. There is a port in the anterior chest. ABDOMEN: Obese. EXTREMITIES: A 1+ pitting edema. EDGAR RAMOS Oct 08, 2017 15:15
--- NOTE | 2017-10-08 15:45 | Consultation ---
DATE OF CONSULTATION: 10/08/2017 PULMONARY CONSULTATION CONSULTING PHYSICIAN: Vel Fuentes M.D. REFERRING PHYSICIAN: Vito Malin M.D. REASON FOR CONSULTATION: Atypical chest pain, rule out PE. HISTORY OF PRESENT ILLNESS: The patient is a 72-year-old female, current daily smoker with a history of prior DVT, PE, noncompliant with Xarelto, lupus anticoagulant, anemia, and multiple other medical problems, who has been grieving the loss of her son lately and has been having paroxysms of anterior chest pain on and off. They are nonexertional, not related with inspiration. She cannot quantify or qualify them well, but states they come and go for the past few weeks. She initially attributed them to anxiety. She saw Dr. Osborn in the office yesterday who recommended she come into the emergency department for evaluation. She denies any other complaints. She denies headaches, dizziness, fevers, chills, rhinorrhea, congestion, otalgia, sore throat, PND, orthopnea, wheezing, cough, hemoptysis, weight loss, or other complaints. Since arriving in the ER, she has been afebrile with stable vital signs and cardiac biomarkers, troponin was 0.00. There were no concerning EKG changes. Cardiology has also seen and evaluated the patient. She has been admitted to tele overnight to rule out ACS. Given concern for venous thromboembolism, Pulmonary consultation has been called. PAST MEDICAL HISTORY: 1. DVT and PE. 2. Lupus. 3. Anemia. 4. DDD. 5. Osteoporosis. 6. Questionable history of seizures in the past. ALLERGIES: Amoxicillin, cortisone, ketorolac, and penicillin. MEDICATIONS: Prior to admission, medications reviewed. SOCIAL HISTORY: Greater than one-pack a day daily smoker. No alcohol or drug use. Grieving the loss of her son. FAMILY HISTORY: Noncontributory. REVIEW OF SYSTEMS: Negative other than the history of present illness. PHYSICAL EXAMINATION: VITAL SIGNS: Temperature 97.9, pulse 68, blood pressure 149/97, respiratory rate 20, and saturation 99% on room air. GENERAL: This is a well-developed, well-nourished female, in no acute distress. Awake, alert, and oriented x3. HEENT: Normocephalic and atraumatic. Oropharynx is clear with moist mucous membranes. NECK: Supple without lymphadenopathy or jugular venous distention. CHEST: Clear to auscultation bilaterally. HEART: Regular rate and rhythm. ABDOMEN: Soft, nontender, and nondistended. EXTREMITIES: No cyanosis, clubbing, or edema. ANCILLARY DATA: Labs, white count 3.3, hemoglobin 11.2, and platelet count 161. Sodium 140, potassium 3, chloride 105, bicarbonate 29, BUN 11, creatinine 1.2, glucose 142, and calcium 9.1. Total bilirubin 0.3, AST 30, ALT 29, and alkaline phosphatase 90. CK 88 and troponin 0. INR 1. Urinalysis, 1+ leukocyte esterase, otherwise negative. Urine tox positive for opiates. Chest x-ray done and reviewed by myself shows some atelectasis versus infiltrate at the right base, but no dense consolidation per se, left chest port is noted. ASSESSMENT: The patient is a 72-year-old current daily smoker female with a history of prior DVT, PE, not recently compliant with anticoagulation, hypertension, hyperlipidemia, lupus, anemia, osteoporosis, prior seizures, presenting with atypical chest pain, status post initial negative cardiac workup. I suspect the etiology of her chest pain is anxiety related to the of her recent child. There are no alarming features, however, given that she does have a history of venous thromboembolism and has been noncompliant with her anticoagulation, we must rule out ACS. Furthermore, she has some very faint interstitial changes, but no infiltrate per se. CTA was attempted in the ER, but was unsuccessful. I spoke with the nurse. We will attempt to get 18 or 20-gauge IV access and proceed with repeating a CT angio. If not, we will check to see if we could use a port to inject the contrast. PROBLEM LIST: 1. Atypical chest pain. 2. Rule out ACS. 3. History of DVT, PE, not compliant with anticoagulation recently. 4. Anxiety. 5. Grieving loss of her son. 6. Hypertension, hyperlipidemia, GERD, prior seizure, lupus, anemia. TREATMENT PLAN: 1. Optimize pulmonary hygiene/mobilize as tolerated. 2. We will attempt to get 18 or 20-gauge peripheral IV placed for contrast. If not, we will see if we can use a port to shoot contrast. 3. We will proceed with CT angio. 4. If CT angio is not able to be obtained, we will obtain a V/Q scan, though I am concerned about the utility of the V/Q with the parenchymal changes as noted. 5. At some point, even if CT angio is not done, we should get a noncontrast CT at a minimum to evaluate the parenchymal changes. 6. Rule out ACS per Cardiology. 7. Continue anticoagulation. 8. Monitor off antibiotics for sign of a respiratory infection. 9. We will follow up an echocardiogram. We will evaluate PA pressures and RV as well. 10. DVT prophylaxis, Xarelto as stated above. 11. Monitor volumes. 12. The patient is a Full Code. Dr. Malin, thank you for allowing me to assist in the care of your patient. If we may be of any assistance in the future, please do not hesitate to ask. Vel Fuentes M.D. DR: KANDY JOB#: [id number] CC:
[2017-10-08 16:00] VITALS: BP 127/63
--- NOTE | 2017-10-08 16:35 | Physician Query ---
--------- THIS DOCUMENT IS A PERMANENT PART OF THE MEDICAL RECORD --------- PLEASE COMPLETE THE DOCUMENT BEFORE SIGNING Dear TY Calhoun Date 10/08/17 Drawing In Machine Tender Helper/CDS' Name Vani Lopez Drawing In Machine Tender Helper/CDS Phone#: [phone] Exercise your independent professional judgment when responding to query. Questions asked do not imply particular answer is desired or expected. We greatly appreciate your clarification on this issue. Clinical Documentation States: Cardiology Progress Note: Dr. Weaver (10/08/17) "Chest pain. The pain is atypical. Ruled out myocardial infarction protocol." "Chronic pain." "Lupus and arthritis." Pulmonology Progress Note: (10/08/17) "Hypertension, hyperlipidemia, GERD, prior seizure, lupus, anemia" Clinical Findings Show: EKG = nonspecific ST-T wave abnormalities Troponin = 0.000, 0.000 O2% = 99, 99, 99 ECHO: EF = 60% Please document the suspected etiology of Chest Pain: a.Type: []Cardiac []Non-cardiac []Unspecified b.Etiology - cardiac [] Aortic dissection []Mitral valve prolapsed [] Acute myocardial infarction []Spasm of coronary arteries [] Coronary Artery Disease []Pericarditis c.Etiology - non-cardiac [] Anxiety []Pleurisy [] Cancer []Pneumonia, type [] Costochondritis []Pneumothorax [] GERD/Esophagitis []Pulmonary embolism [] Unable to determine []Other: Please also document in your Progress Notes and/or Discharge Summary and indicate if the condition was present on admission. Dr. TY STANLEY Date/Time MTDD
--- NOTE | 2017-10-08 16:43 | Diagnostic Imaging Report ---
Indication: Chest pain Technique: Continuous helical transaxial imaging of the chest was obtained from the thoracic inlet to the upper abdomen during rapid intravenous contrast administration. Arterial phase of enhancement obtained. Coronal 2-D reformats were also obtained and maximum intensity projection images in multiple planes. Study obtained in a Siemens sensation [address] Automatic Exposure Control was utilized. Total Dose length Product (DLP): 738.[address] Dose Index Volume (CTDIvol): 18.42 mGy Comparison: None Findings: The pulmonary artery is well opacified and shows no filling defects. There is no adenopathy, pleural or pericardial effusions are identified. There is no aortic dissection or aneurysm identified within the chest. Aorta shows mural calcium consistent with atherosclerotic disease. There are coarse linear densities present within the lung bases associated with bronchiectasis likely representing scarring. There is no consolidation. The lower part of the SVC is seen. There are multiple collaterals within the chest wall abdominal wall. The findings suggest some degree of central venous occlusion or stenosis. The azygos vein is also opacified. Visualized part of the upper abdomen shows pneumobilia and surgical clips in the right upper quadrant of the abdomen.. Impression: No evidence of pulmonary embolus, aortic dissection or aneurysm. Mild atherosclerotic disease noted. Chronic lung disease as described above Multiple chest wall collateral veins suggesting impediment to venous inflow. Chest port noted. Right upper quadrant abdominal surgery. Pneumobilia, usually a sign of previous ERCP/papillotomy. The CT scanner at [facility] is accredited by the [employer] and the scans are performed using dose optimization techniques as appropriate to a performed exam including Automatic Exposure control.
[2017-10-08] MEDS: ALPRAZolam 0.25mg tab ORAL PRN (18:26)
--- NOTE | 2017-10-08 18:36 | Consultation ---
History of Present Illness General Chief Complaint: Chest Pain Present Illness HPI 72-year-old female, current daily smoker with a history of prior DVT, PE, noncompliant with Xarelto,lupus anticoagulant, anemia, and multiple other medical problems, who has been grieving the loss of her son in sep and having chest pain. the pt stated that this was her second son that she has lost. the pt stated that she has anxiety, insomnia and no appetite. In addition she has been depressed and hopeless. Allergies: Coded Allergies: AMOXICILLIN (Verified Allergy, Unknown, RASH, 06/29/14) CORTISONE (Verified Allergy, Unknown, 06/29/14) KETOROLAC (Verified Allergy, Unknown, 06/29/14) PENICILLINS (Verified Allergy, Unknown, 06/29/14) Medication History Scheduled Alendronate Sodium* (Fosamax*), 70 MG ORAL ONCE A WEEK, (Reported) Alprazolam* (Xanax*), 0.25 MG ORAL THREE TIMES A DAY, (Reported) Amlodipine Besylate (Norvasc), 5 MG ORAL BID, (Reported) Atorvastatin Calcium* (Lipitor*), 10 MG ORAL BEDTIME, (Reported) Gabapentin* (Gabapentin*), 300 MG ORAL THREE TIMES A DAY Hydromorphone HCl (Dilaudid), 4 MG ORAL TID, (Reported) Lidocaine (Lidoderm), 1 PATCH TOPIC DAILY Methocarbamol* (Robaxin-750*), 750 MG PO TID Polyethylene Glycol* (Miralax*), 17 GM ORAL DAILY, (Reported) Rivaroxaban (Xarelto*), 20 MG ORAL DAILY, (Reported) Scheduled PRN Ondansetron* (Zofran*), 4 MG ORAL Q6H PRN for Nausea & Vomiting, (Reported) Oxycodone Hcl (Oxycodone Hcl), 60 MG ORAL QHS PRN for For Pain, (Reported) Patient History Limited by: medical condition History Provided By: Patient, Medical Record, PMD Healthcare decision maker Resuscitation status Full Code Advanced Directive on File No Past Medical/Surgical History Past Medical/Surgical History: (1) [id number] (2) Syncope (3) Syncope (4) NSTEMI (non-ST elevated myocardial infarction) (5) Knee pain, bilateral (6) Vertigo (7) Vertigo (8) Urinary tract infection, E. coli (9) UTI (urinary tract infection) (10) Low back pain (11) C. difficile colitis (12) Low back pain (13) Intractable abdominal pain (14) Abdominal pain of unknown etiology (15) Nausea, vomiting, and diarrhea (16) Abdominal pain (17) Osteoarthritis (18) Nausea, vomiting, and diarrhea (19) Bilateral lower extremity pain (20) Intractable abdominal pain (21) Hematuria (22) Lupus (23) Hilda esophagitis (24) Anemia (25) Abdominal pain of unknown etiology (26) DVT (deep venous thrombosis) (27) Gastritis (28) Chronic pancreatitis (29) Anemia (30) GERD (gastroesophageal reflux disease) (31) GERD (gastroesophageal reflux disease) (32) Chronic constipation (33) Lupus (34) Chest pain Review of Systems Psychiatric: Reports: prior hx, anxiety, depressed feelings Physical Exam General Appearance: no apparent distress, alert Neurologic: oriented x 3, responsive, depressed affect Last 24 Hour Vital Signs Date Time Temp Pulse Resp B/P (MAP) Pulse Ox O2 Delivery O2 Flow Rate FiO2 10/08/17 16:00 98.2 68 18 127/63 98 Room Air 98.2 10/08/17 12:00 98.2 62 18 138/56 98 Room Air 98.2 10/08/17 08:50 73 143/61 10/08/17 08:00 86 10/08/17 08:00 98.2 73 18 143/61 98 Room Air 98.2 10/08/17 04:06 97.7 60 20 140/54 99 Room Air 97.7 10/08/17 04:00 85 10/08/17 00:00 97.9 68 20 149/97 99 Room Air 97.9 10/08/17 00:00 89 10/07/17 21:36 79 145/68 10/07/17 20:00 92 10/07/17 19:01 98.1 84 18 147/65 99 Room Air 98.1 10/07/17 18:45 97.8 68 17 144/78 99 Room Air Intake and Output 10/07/17 10/08/17 19:00 07:00 Intake Total 120 ml Output Total 900 ml Balance -780 ml Intake Oral 120 ml Output Urine Total 900 ml # Voids 1 1 Laboratory Tests Test 10/08/17 00:00 10/08/17 09:00 10/08/17 09:40 Urine Color Pale yellow Urine Appearance Clear Urine pH 7 (4.5-8.0) Urine Specific [place] 1.010 (1.005-1.035) Urine Protein Negative (NEGATIVE) Urine Glucose (UA) Negative (NEGATIVE) Urine Ketones Negative (NEGATIVE) Urine Occult Blood Negative (NEGATIVE) Urine Nitrite Negative (NEGATIVE) Urine Bilirubin Negative (NEGATIVE) Urine Urobilinogen Normal MG/DL (0.0-1.0) Urine Leukocyte Esterase 1+ (NEGATIVE) H Urine RBC 0-2 /HPF (0 - 2) Urine WBC 0-2 /HPF (0 - 2) Urine Squamous Epithelial Cells Few /LPF (NONE/OCC) Urine Bacteria Few /HPF (NONE) Urine Opiates Screen Positive (NEGATIVE) H Urine Barbiturates Screen Negative (NEGATIVE) Phencyclidine (PCP) Screen Negative (NEGATIVE) Urine Amphetamines Screen Negative (NEGATIVE) Urine Benzodiazepines Screen Negative (NEGATIVE) Urine Cocaine Screen Negative (NEGATIVE) Urine Marijuana (THC) Screen Negative (NEGATIVE) White Blood Count 2.2 K/UL (4.8-10.8) L Red Blood Count 4.35 M/UL (4.20-5.40) Hemoglobin 12.3 G/DL (12.0-16.0) Hematocrit 38.0 % (37.0-47.0) Mean Corpuscular Volume 87 FL (80-99) Mean Corpuscular Hemoglobin 28.3 PG (27.0-31.0) Mean Corpuscular Hemoglobin Concent 32.4 G/DL (32.0-36.0) Red Cell Distribution Width 13.2 % (11.6-14.8) Platelet Count 172 K/UL (150-450) Mean Platelet Volume 7.3 FL (6.5-10.1) Neutrophils (%) (Auto) % (45.0-75.0) Lymphocytes (%) (Auto) % (20.0-45.0) Monocytes (%) (Auto) % (1.0-10.0) Eosinophils (%) (Auto) % (0.0-3.0) Basophils (%) (Auto) % (0.0-2.0) Differential Total Cells Counted 100 Neutrophils % (Manual) 64 % (45-75) Lymphocytes % (Manual) 26 % (20-45) Monocytes % (Manual) 6 % (1-10) Eosinophils % (Manual) 4 % (0-3) H Basophils % (Manual) 0 % (0-2) Band Neutrophils 0 % (0-8) Platelet Estimate Adequate Platelet Morphology Normal Red Blood Cell Morphology Normal Sodium Level 139 MMOL/L (136-145) Potassium Level 3.9 MMOL/L (3.5-5.1) Chloride Level 105 MMOL/L (98-107) Carbon Dioxide Level 31 MMOL/L (21-32) Anion Gap 3 mmol/L (5-15) L Blood Urea Nitrogen 6 mg/dL (7-18) L Creatinine 1.1 MG/DL (0.55-1.30) Estimat Glomerular Filtration Rate mL/min (>60) Glucose Level 245 MG/DL (74-106) #H Hemoglobin A1c 7.4 % (4.3-6.0) H Calcium Level 9.1 MG/DL (8.5-10.1) Total Bilirubin 0.5 MG/DL (0.2-1.0) Aspartate Amino Transf (AST/SGOT) 35 U/L (15-37) Alanine Aminotransferase (ALT/SGPT) 31 U/L (12-78) Alkaline Phosphatase 82 U/L (46-116) Troponin I 0.000 ng/mL (0.000-0.056) Total Protein 7.5 G/DL (6.4-8.2) Albumin 3.3 G/DL (3.4-5.0) L Globulin 4.2 g/dL Albumin/Globulin Ratio 0.8 (1.0-2.7) L Triglycerides Level 51 MG/DL (30-150) Cholesterol Level 115 MG/DL (< 200) LDL Cholesterol 37 mg/dL (<100) HDL Cholesterol 73 MG/DL (40-60) H Cholesterol/HDL Ratio 1.6 (3.3-4.4) L Thyroid Stimulating Hormone (TSH) 0.534 uiU/mL (0.358-3.740) D-Dimer 0.38 mg/L FEU (0.00-0.49) Height (Feet): 5 Height (Inches): 5.00 Weight (Pounds): 130 Medications Current Medications Medications (Trade) Dose Ordered Sig/Alexys Route PRN Reason Start Time Stop Time Status Last Admin Dose Admin Alendronate Sodium (Fosamax) 70 mg QWEEK ORAL 10/12/17 06:30 11/11/17 06:29 Alprazolam (Xanax) 0.25 mg THREE TIMES A DAY PRN ORAL For Anxiety 10/07/17 20:30 10/14/17 20:29 10/08/17 18:26 Amlodipine Besylate (Norvasc) 5 mg Q12HR ORAL 10/07/17 21:00 11/06/17 20:59 10/08/17 08:50 Atorvastatin Calcium (Lipitor) 40 mg BEDTIME ORAL 10/07/17 21:00 11/06/17 20:59 10/07/17 21:36 Chlorhexidine Gluconate (Merari-Hex 2%) 1 applic DAILY TOPIC 10/08/17 09:00 11/07/17 08:59 10/08/17 08:50 Dextrose (Dextrose 50%) STAT PRN IV Hypoglycemia 10/07/17 20:30 11/06/17 20:29 Diphenhydramine HCl (Benadryl) 25 mg Q4HR PRN ORAL Itching 10/07/17 20:45 11/06/17 20:44 Docusate Sodium (Colace) 100 mg TWICE A DAY ORAL 10/08/17 09:00 11/07/17 08:59 10/08/17 17:27 Gabapentin (Neurontin) 300 mg Q8HR ORAL 10/07/17 22:00 11/06/17 21:59 10/08/17 13:38 Hydromorphone HCl (Dilaudid) 1 mg Q3HR PRN IVPB Severe Breakthru Pain (>7) 10/07/17 20:45 10/14/17 20:44 Hydromorphone HCl (Dilaudid) 4 mg Q8HR PRN ORAL Moderate Pain (Pain Scale 4-6) 10/07/17 20:30 10/14/17 20:29 10/08/17 17:28 Insulin Aspart (NovoLOG) BEFORE MEALS AND HS SUBQ 10/07/17 21:00 11/06/17 20:59 Magnesium Hydroxide (Mom) 30 ml DAILYPRN PRN ORAL Constipation 10/07/17 20:45 11/06/17 20:44 Ondansetron HCl (Zofran) 4 mg Q6H PRN ORAL Nausea & Vomiting 10/07/17 20:30 11/06/17 20:29 10/08/17 17:27 Pantoprazole (Protonix) 40 mg ACBREAKFAST ORAL 10/08/17 06:30 11/07/17 06:29 10/08/17 06:17 Polyethylene Glycol (Miralax) 17 gm DAILY ORAL 10/08/17 09:30 11/07/17 09:29 10/08/17 10:39 Rivaroxaban (Xarelto) 20 mg DAILY ORAL 10/08/17 09:00 11/07/17 08:59 10/08/17 08:48 Zolpidem Tartrate (Ambien) 5 mg HSPRN PRN ORAL Insomnia 10/07/17 20:45 10/14/17 20:44 Assessment/Plan Status: stable Assessment/Plan mdd -remeron 15mg qhs provided itzel/Tiburcio Watts M.D. Oct 08, 2017 18:36
[2017-10-08] MEDS: HYDROmorphone 1mg/ml Carpuject IVPB PRN (19:00)
[2017-10-08 20:00] VITALS: BP 124/55
[2017-10-08] MEDS: Atorvastatin 20mg tab ORAL SCH (21:48)
[2017-10-08] MEDS: Zolpidem 5mg tab ORAL PRN (21:48)
[2017-10-09] VITALS: BP 125/56
[2017-10-09 04:00] VITALS: BP 157/55
[2017-10-09] MEDS: HYDROmorphone 4mg tab ORAL PRN ×2 (06:28→14:49)
[2017-10-09] MEDS: NovoLOG Insulin Flexpen SUBQ SCH ×4 (06:28→21:00)
[2017-10-09 07:02] LABS: ANION GAP 2 mmol/L (5-15); BLOOD UREA NITROGEN 7 mg/dL (7-18); CALCIUM 9.1 MG/DL (8.5-10.1); CARBON DIOXIDE 32 MMOL/L (21-32); CHLORIDE 107 MMOL/L (98-107); CREATININE 1.2 MG/DL (0.55-1.30); POTASSIUM 3.9 MMOL/L (3.5-5.1); SODIUM 141 MMOL/L (136-145)
[2017-10-09 07:10] LABS: HEMATOCRIT 35.5 % (37.0-47.0); HEMOGLOBIN 11.9 G/DL (12.0-16.0); MEAN CORPUSCULAR VOLUME 88 FL (80-99); PLATELET COUNT 170 K/UL (150-450); RED BLOOD COUNT 4.06 M/UL (4.20-5.40); RED CELL DISTRIBUTION WIDTH 13.2 % (11.6-14.8); WHITE BLOOD COUNT 2.4 K/UL (4.8-10.8)
[2017-10-09 08:00] VITALS: BP 141/59
[2017-10-09] MEDS: Docusate 100mg cap ORAL SCH ×2 (08:58→17:19)
[2017-10-09] MEDS: Xarelto 10mg tab ORAL SCH (08:58)
[2017-10-09] MEDS: Miralax 17gm pkt ORAL SCH (08:58)
[2017-10-09] MEDS: Dyna-Hex 2% Top Sol 2oz TOPIC SCH (08:58)
--- NOTE | 2017-10-09 10:26 | Diagnostic Imaging Report ---
APPROVED REPORT CPT Code: 08546 Present Symptoms Comments: Screening BILATERAL: Imaging reveals a patent deep venous system bilaterally. There is no evidence of thrombus within the femoral, popliteal or tibial segments. The greater saphenous veins are also within normal limits. Doppler indicates normal spontaneous flow within these segments.
[2017-10-09 12:00] VITALS: BP 132/58
--- NOTE | 2017-10-09 13:13 | Pulmonology Progress Note ---
Assessment/Plan Assessment/Plan ASSESSMENT: The patient is a 72-year-old current daily smoker female with a history of prior DVT, PE, not recently compliant with anticoagulation, hypertension, hyperlipidemia, lupus, anemia, osteoporosis, prior seizures, presenting with atypical chest pain, status post initial negative cardiac workup. I suspect the etiology of her chest pain is anxiety related to the of her recent child. She has been ruled out for ACS and VTE. PROBLEM LIST: 1. Atypical chest pain. 2. Rule out ACS. 3. History of DVT, PE, no evidence of current DVT or PE 4. Anxiety. 5. Grieving loss of her son. 6. Hypertension, hyperlipidemia, GERD, prior seizure, lupus, anemia. TREATMENT PLAN: 1. Optimize pulmonary hygiene/mobilize as tolerated. 2. F/U cardiac stress test today 3. F/U cardiology recs 4. F/U psych recs 5. Continue anticoagulation. 6. Monitor off antibiotics for sign of a respiratory infection. 7. DVT prophylaxis, Xarelto as stated above. 8. Monitor volumes. 9. The patient is a Full Code. Subjective Allergies: Coded Allergies: AMOXICILLIN (Verified Allergy, Unknown, RASH, 06/29/14) CORTISONE (Verified Allergy, Unknown, 06/29/14) KETOROLAC (Verified Allergy, Unknown, 06/29/14) PENICILLINS (Verified Allergy, Unknown, 06/29/14) Subjective AFVSS x elevated BP, stable on RA, no CP, less anxious, no cough, no SOB, no F/C CT-A and duplex neg, TTE reviewed Objective Last 24 Hour Vital Signs Date Time Temp Pulse Resp B/P (MAP) Pulse Ox O2 Delivery O2 Flow Rate FiO2 10/09/17 12:00 97.8 78 20 132/58 98 Room Air 97.8 10/09/17 08:58 63 150/64 10/09/17 08:00 80 10/09/17 08:00 98.2 64 20 141/59 96 Room Air 98.2 10/09/17 06:28 97.3 10/09/17 04:00 97.3 65 20 157/55 100 Room Air 97.3 10/09/17 04:00 70 10/09/17 00:00 98.0 67 20 125/56 98 Room Air 98.0 10/09/17 00:00 71 10/08/17 21:46 63 124/55 10/08/17 20:00 98.2 63 20 124/55 98 Room Air 98.2 10/08/17 20:00 85 10/08/17 16:00 98.2 68 18 127/63 98 Room Air 98.2 10/08/17 16:00 85 Intake and Output 10/08/17 10/09/17 19:00 07:00 Intake Total 720 ml Balance 720 ml Intake Oral 720 ml # Voids 1 2 General Appearance: WD/WN, no acute distress HEENT: normocephalic, atraumatic, mucous membranes moist Respiratory/Chest: chest wall non-tender, lungs clear, normal breath sounds, no respiratory distress, no accessory muscle use Cardiovascular: normal peripheral pulses, normal rate, regular rhythm Abdomen: normal bowel sounds, soft, non tender, no organomegaly, non distended , no mass Extremities: no cyanosis, no clubbing, no edema Laboratory Tests 10/09/17 06:10: White Blood Count 2.4L, Red Blood Count 4.06L, Hemoglobin 11.9L, Hematocrit 35.5L, Mean Corpuscular Volume 88, Mean Corpuscular Hemoglobin 29.2, Mean Corpuscular Hemoglobin Concent 33.3, Red Cell Distribution Width 13.2, Platelet Count 170, Mean Platelet Volume 8.1, Neutrophils (%) (Auto) , Lymphocytes (%) ( Auto) , Monocytes (%) (Auto) , Eosinophils (%) (Auto) , Basophils (%) (Auto) , Differential Total Cells Counted 100, Neutrophils % (Manual) 50, Lymphocytes % ( Manual) 32, Monocytes % (Manual) 16H, Eosinophils % (Manual) 2, Basophils % ( Manual) 0, Band Neutrophils 0, Platelet Estimate Adequate, Platelet Morphology Normal, Anisocytosis 1+, Sodium Level 141, Potassium Level 3.9, Chloride Level 107, Carbon Dioxide Level 32, Anion Gap 2L, Blood Urea Nitrogen 7, Creatinine 1.2, Estimat Glomerular Filtration Rate , Glucose Level 98#, Calcium Level 9.1 Current Medications Medications (Trade) Dose Ordered Sig/Alexys Route PRN Reason Start Time Stop Time Status Last Admin Dose Admin Alendronate Sodium (Fosamax) 70 mg QWEEK ORAL 10/12/17 06:30 11/11/17 06:29 Alprazolam (Xanax) 0.25 mg THREE TIMES A DAY PRN ORAL For Anxiety 10/07/17 20:30 10/14/17 20:29 10/08/17 18:26 Amlodipine Besylate (Norvasc) 5 mg Q12HR ORAL 10/07/17 21:00 11/06/17 20:59 10/09/17 08:58 Atorvastatin Calcium (Lipitor) 40 mg BEDTIME ORAL 10/07/17 21:00 11/06/17 20:59 10/08/17 21:48 Chlorhexidine Gluconate (Merari-Hex 2%) 1 applic DAILY TOPIC 10/08/17 09:00 11/07/17 08:59 10/09/17 08:58 Dextrose (Dextrose 50%) STAT PRN IV Hypoglycemia 10/07/17 20:30 11/06/17 20:29 Diphenhydramine HCl (Benadryl) 25 mg Q4HR PRN ORAL Itching 10/07/17 20:45 11/06/17 20:44 Docusate Sodium (Colace) 100 mg TWICE A DAY ORAL 10/08/17 09:00 11/07/17 08:59 10/09/17 08:58 Gabapentin (Neurontin) 300 mg Q8HR ORAL 10/07/17 22:00 11/06/17 21:59 10/09/17 06:27 Hydromorphone HCl (Dilaudid) 1 mg Q3HR PRN IVPB Severe Breakthru Pain (>7) 10/07/17 20:45 10/14/17 20:44 10/08/17 19:00 Hydromorphone HCl (Dilaudid) 4 mg Q8HR PRN ORAL Moderate Pain (Pain Scale 4-6) 10/07/17 20:30 10/14/17 20:29 10/09/17 06:28 Insulin Aspart (NovoLOG) BEFORE MEALS AND HS SUBQ 10/07/17 21:00 11/06/17 20:59 Magnesium Hydroxide (Mom) 30 ml DAILYPRN PRN ORAL Constipation 10/07/17 20:45 11/06/17 20:44 Mirtazapine (Remeron) 15 mg BEDTIME ORAL 10/08/17 21:00 11/07/17 20:59 10/08/17 21:46 Ondansetron HCl (Zofran) 4 mg Q6H PRN ORAL Nausea & Vomiting 10/07/17 20:30 11/06/17 20:29 10/08/17 17:27 Pantoprazole (Protonix) 40 mg ACBREAKFAST ORAL 10/08/17 06:30 11/07/17 06:29 10/09/17 06:27 Polyethylene Glycol (Miralax) 17 gm DAILY ORAL 10/08/17 09:30 11/07/17 09:29 10/09/17 08:58 Rivaroxaban (Xarelto) 20 mg DAILY ORAL 10/08/17 09:00 11/07/17 08:59 10/09/17 08:58 Zolpidem Tartrate (Ambien) 5 mg HSPRN PRN ORAL Insomnia 10/07/17 20:45 10/14/17 20:44 10/08/17 21:48 ERROL HORNE M.D. Oct 09, 2017 13:13
--- NOTE | 2017-10-09 13:15 | History and Physical Report ---
DATE OF ADMISSION: 10/07/2017 NOTE: Poor Audio HISTORY OF PRESENT ILLNESS: The patient is a very pleasant unfortunate 72-year-old female with multiple medical problems, who has history of hypercoagulable condition, history of previous DVT, history of PE, history of CVA, and past history of lupus. The patient presented to the emergency room here with complaints of chest pain, some dyspnea associated with that at times with no fever or chills. No abdominal pain. No nausea or vomiting. No change in bowel habits. No urinary symptoms. The patient does have chronic back pain and is on chronic pain medications. PAST MEDICAL HISTORY: Includes a history of hypercoagulable condition. She is followed by Dr. Osborn. She is on Xarelto chronically. 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 MEDICATIONS: Please see reconciled medication list. ALLERGIES: Allergic to Toradol, cortisone, and lactulose. FAMILY HISTORY: Noncontributory. REVIEW OF SYSTEMS: A 12-point review of systems was reviewed and negative except for above. Of note, the patient has been very depressed. PHYSICAL EXAMINATION: GENERAL: She is well developed, well nourished, currently in no apparent distress. VITAL SIGNS: Blood pressure is 138/56, pulse 52, pulse oximetry 98%, and temperature 98.2 degrees. HEENT: Head: Normocephalic and atraumatic. Pupils are equal and reactive to light. Extraocular movements are intact. Eyes are anicteric. NECK: Supple. LUNGS: Clear. HEART: Regular rate and rhythm. ABDOMEN: Soft. Positive bowel sounds. Nondistended and nontender. EXTREMITIES: No clubbing, cyanosis, or edema. . LABORATORY AND DIAGNOSTIC DATA: White count of 3.3, hemoglobin 11.2, hematocrit 32.5, and platelet count 161,000. Chemistries revealed sodium 140, potassium 3.4, chloride 105, bicarbonate 29, and glucose 132. Glycohemoglobin of 7.4. Troponin 0.00. Urinalysis, 1+ leukocyte esterase, otherwise negative. Chest x-ray revealed atelectasis which is there in one base, other unchanged. CTA of the chest with contrast with no evidence of PE, aortic dissection, or aneurysm. chronic lung disease. Multiple chest abdominal surgeries and . EKG noted. ASSESSMENT AND PLAN: The patient is a 72-year-old female, who presents with chest pain, need to rule out acute coronary syndrome. First troponin is negative. The pain is atypical. The patient does complain of pain will be at times and she does have a previous history of deep venous thrombosis and pulmonary embolism. She is on Xarelto chronically. A CT angiogram done does not reveal pulmonary embolism. She has been seen by Dr. Fuentes who also ordered an echocardiogram and asked Dr. Weaver, the call center receptionist, to see her as well. We will continue with pain control for now. Vito Malin M.D. DR: Leona JOB#: [id number] CC:
--- NOTE | 2017-10-09 15:25 | Cardiac Electrophysiology PN ---
Assessment/Plan Assessment/Plan 1. Chest pain. The pain is atypical. EKG showed nonspecific ST-T wave abnormalities. Ruled out myocardial infarction protocol. Echo showed EF 60%. Chest Ct negative. Nuclear stress test result is pending 2. History of deep venous thrombosis and pulmonary embolism, on Xarelto Chest CT angio no PE or dissection or aneurysm. 3. Chronic pain. 4. History of diabetes, presently resolved. Currently, off antidiabetics. 5. Lupus and arthritis. CATIE RN Subjective Subjective Comfortable in NAD.Is going for second portion of the stress test.. Objective Last 24 Hour Vital Signs Date Time Temp Pulse Resp B/P (MAP) Pulse Ox O2 Delivery O2 Flow Rate FiO2 10/09/17 12:00 97.8 78 20 132/58 98 Room Air 97.8 10/09/17 08:58 63 150/64 10/09/17 08:00 80 10/09/17 08:00 98.2 64 20 141/59 96 Room Air 98.2 10/09/17 06:28 97.3 10/09/17 04:00 97.3 65 20 157/55 100 Room Air 97.3 10/09/17 04:00 70 10/09/17 00:00 98.0 67 20 125/56 98 Room Air 98.0 10/09/17 00:00 71 10/08/17 21:46 63 124/55 10/08/17 20:00 98.2 63 20 124/55 98 Room Air 98.2 10/08/17 20:00 85 10/08/17 16:00 98.2 68 18 127/63 98 Room Air 98.2 10/08/17 16:00 85 Intake and Output 10/08/17 10/09/17 19:00 07:00 Intake Total 720 ml Balance 720 ml Intake Oral 720 ml # Voids 1 2 Laboratory Tests Test 10/09/17 06:10 White Blood Count 2.4 K/UL (4.8-10.8) L Red Blood Count 4.06 M/UL (4.20-5.40) L Hemoglobin 11.9 G/DL (12.0-16.0) L Hematocrit 35.5 % (37.0-47.0) L Mean Corpuscular Volume 88 FL (80-99) Mean Corpuscular Hemoglobin 29.2 PG (27.0-31.0) Mean Corpuscular Hemoglobin Concent 33.3 G/DL (32.0-36.0) Red Cell Distribution Width 13.2 % (11.6-14.8) Platelet Count 170 K/UL (150-450) Mean Platelet Volume 8.1 FL (6.5-10.1) Neutrophils (%) (Auto) % (45.0-75.0) Lymphocytes (%) (Auto) % (20.0-45.0) Monocytes (%) (Auto) % (1.0-10.0) Eosinophils (%) (Auto) % (0.0-3.0) Basophils (%) (Auto) % (0.0-2.0) Differential Total Cells Counted 100 Neutrophils % (Manual) 50 % (45-75) Lymphocytes % (Manual) 32 % (20-45) Monocytes % (Manual) 16 % (1-10) H Eosinophils % (Manual) 2 % (0-3) Basophils % (Manual) 0 % (0-2) Band Neutrophils 0 % (0-8) Platelet Estimate Adequate Platelet Morphology Normal Anisocytosis 1+ Sodium Level 141 MMOL/L (136-145) Potassium Level 3.9 MMOL/L (3.5-5.1) Chloride Level 107 MMOL/L (98-107) Carbon Dioxide Level 32 MMOL/L (21-32) Anion Gap 2 mmol/L (5-15) L Blood Urea Nitrogen 7 mg/dL (7-18) Creatinine 1.2 MG/DL (0.55-1.30) Estimat Glomerular Filtration Rate mL/min (>60) Glucose Level 98 MG/DL (74-106) # Calcium Level 9.1 MG/DL (8.5-10.1) Objective HEAD AND NECK: No JVD. LUNGS: Clear. CARDIOVASCULAR: Regular S1 and S2 with no gallop or murmur. There is a port in the anterior chest. ABDOMEN: Obese. EXTREMITIES: A 1+ pitting edema. EDGAR RAMOS Oct 09, 2017 15:25
[2017-10-09 16:00] VITALS: BP 135/63
[2017-10-09] MEDS: HYDROmorphone 1mg/ml Carpuject IVPB PRN ×2 (16:38→21:16)
--- NOTE | 2017-10-09 17:38 | Diagnostic Imaging Report ---
Indications: Chest pain Technique: Single day single isotope protocol utilized. Initially, resting images obtained using IV administration 9.8 millicuries 99M technetium Myoview. Subsequently, patient underwent lexiscan stress testing. See cardiology report for details. During Lexiscan infusion, IV administration 29.4 mCi 99 M technetium Myoview. SPECT and planar images obtained. SPECT images gated to 8 phases of the cardiac cycle were also obtained, and reformatted into cine images for evaluation of ejection fraction. Comparison: none Findings: Presence or absence of symptoms during infusion is not described on the cardiology report . Per cardiology report, resting EKG demonstrates normal sinus rhythm, with ST-T wave abnormality not otherwise described. Presence or absence of EKG changes during infusion is not described. Imaging demonstrates normal poststress perfusion, no fixed nor reversible poststress perfusion defects. Normal cardiac chamber size. Calculated post stress ejection fraction 78%. No focal wall motion abnormality demonstrated Impression: Nonischemic clinical response to pharmacologic stress, per cardiology report Nonischemic electrocardiographic response to pharmacologic stress, per cardiology report No imaging findings to suggest ischemia, at level of stress achieved. Calculated post stress ejection fraction greater than 70%
[2017-10-09 20:00] VITALS: BP 143/60
[2017-10-09] MEDS: Atorvastatin 20mg tab ORAL SCH (20:57)
[2017-10-09] MEDS: Zolpidem 5mg tab ORAL PRN (21:15)
--- NOTE | 2017-10-09 21:33 | General Progress Note ---
Assessment/Plan Status: stable, progressing Assessment/Plan depression insomnia improved remeron 15mg qhs the pt is reluctant to go to [facility] across the [facility] Subjective Date patient seen: Oct 09, 2017 Neurologic/Psychiatric: Reports: anxiety, depressed, emotional problems Allergies: Coded Allergies: AMOXICILLIN (Verified Allergy, Unknown, RASH, 06/29/14) CORTISONE (Verified Allergy, Unknown, 06/29/14) KETOROLAC (Verified Allergy, Unknown, 06/29/14) PENICILLINS (Verified Allergy, Unknown, 06/29/14) Objective Last 24 Hour Vital Signs Date Time Temp Pulse Resp B/P (MAP) Pulse Ox O2 Delivery O2 Flow Rate FiO2 10/09/17 20:57 82 143/60 10/09/17 20:00 98.1 72 18 143/60 99 98.1 10/09/17 20:00 82 10/09/17 16:00 80 10/09/17 16:00 98.2 81 20 135/63 97 Room Air 98.2 10/09/17 12:00 97.8 78 20 132/58 98 Room Air 97.8 10/09/17 12:00 66 10/09/17 08:58 63 150/64 10/09/17 08:00 80 10/09/17 08:00 98.2 64 20 141/59 96 Room Air 98.2 10/09/17 06:28 97.3 10/09/17 04:00 97.3 65 20 157/55 100 Room Air 97.3 10/09/17 04:00 70 10/09/17 00:00 98.0 67 20 125/56 98 Room Air 98.0 10/09/17 00:00 71 10/08/17 21:46 63 124/55 Intake and Output 10/08/17 10/09/17 19:00 07:00 Intake Total 720 ml Balance 720 ml Intake Oral 720 ml # Voids 1 2 Laboratory Tests 10/09/17 06:10: White Blood Count 2.4L, Red Blood Count 4.06L, Hemoglobin 11.9L, Hematocrit 35.5L, Mean Corpuscular Volume 88, Mean Corpuscular Hemoglobin 29.2, Mean Corpuscular Hemoglobin Concent 33.3, Red Cell Distribution Width 13.2, Platelet Count 170, Mean Platelet Volume 8.1, Neutrophils (%) (Auto) , Lymphocytes (%) ( Auto) , Monocytes (%) (Auto) , Eosinophils (%) (Auto) , Basophils (%) (Auto) , Differential Total Cells Counted 100, Neutrophils % (Manual) 50, Lymphocytes % ( Manual) 32, Monocytes % (Manual) 16H, Eosinophils % (Manual) 2, Basophils % ( Manual) 0, Band Neutrophils 0, Platelet Estimate Adequate, Platelet Morphology Normal, Anisocytosis 1+, Sodium Level 141, Potassium Level 3.9, Chloride Level 107, Carbon Dioxide Level 32, Anion Gap 2L, Blood Urea Nitrogen 7, Creatinine 1.2, Estimat Glomerular Filtration Rate , Glucose Level 98#, Calcium Level 9.1 Height (Feet): 5 Height (Inches): 5.00 Weight (Pounds): 130 General Appearance: WD/WN, no apparent distress, alert Neurologic: alert, oriented x 3, depressed affect Tiburcio Horn M.D. Oct 09, 2017 21:33
--- NOTE | 2017-10-09 23:04 | General Progress Note ---
Assessment/Plan Assessment/Plan chest pain ho chronic pain ho diabetes on diet ho htn ho hypercoaglulable conidtion ho lupus depression ruled out fo PE to get stress test today accucheck noted bp controlled psyche evl appreciated dvt and ucler prophylaxis Subjective Allergies: Coded Allergies: AMOXICILLIN (Verified Allergy, Unknown, RASH, 06/29/14) CORTISONE (Verified Allergy, Unknown, 06/29/14) KETOROLAC (Verified Allergy, Unknown, 06/29/14) PENICILLINS (Verified Allergy, Unknown, 06/29/14) Subjective some chest painno sob no cough has chronic pains Objective Last 24 Hour Vital Signs Date Time Temp Pulse Resp B/P (MAP) Pulse Ox O2 Delivery O2 Flow Rate FiO2 10/09/17 20:57 82 143/60 10/09/17 20:00 98.1 72 18 143/60 99 98.1 10/09/17 20:00 82 10/09/17 16:00 80 10/09/17 16:00 98.2 81 20 135/63 97 Room Air 98.2 10/09/17 12:00 97.8 78 20 132/58 98 Room Air 97.8 10/09/17 12:00 66 10/09/17 08:58 63 150/64 10/09/17 08:00 80 10/09/17 08:00 98.2 64 20 141/59 96 Room Air 98.2 10/09/17 06:28 97.3 10/09/17 04:00 97.3 65 20 157/55 100 Room Air 97.3 10/09/17 04:00 70 10/09/17 00:00 98.0 67 20 125/56 98 Room Air 98.0 10/09/17 00:00 71 Intake and Output 10/08/17 10/09/17 19:00 07:00 Intake Total 720 ml Balance 720 ml Intake Oral 720 ml # Voids 1 2 Laboratory Tests 10/09/17 06:10: White Blood Count 2.4L, Red Blood Count 4.06L, Hemoglobin 11.9L, Hematocrit 35.5L, Mean Corpuscular Volume 88, Mean Corpuscular Hemoglobin 29.2, Mean Corpuscular Hemoglobin Concent 33.3, Red Cell Distribution Width 13.2, Platelet Count 170, Mean Platelet Volume 8.1, Neutrophils (%) (Auto) , Lymphocytes (%) ( Auto) , Monocytes (%) (Auto) , Eosinophils (%) (Auto) , Basophils (%) (Auto) , Differential Total Cells Counted 100, Neutrophils % (Manual) 50, Lymphocytes % ( Manual) 32, Monocytes % (Manual) 16H, Eosinophils % (Manual) 2, Basophils % ( Manual) 0, Band Neutrophils 0, Platelet Estimate Adequate, Platelet Morphology Normal, Anisocytosis 1+, Sodium Level 141, Potassium Level 3.9, Chloride Level 107, Carbon Dioxide Level 32, Anion Gap 2L, Blood Urea Nitrogen 7, Creatinine 1.2, Estimat Glomerular Filtration Rate , Glucose Level 98#, Calcium Level 9.1 Height (Feet): 5 Height (Inches): 5.00 Weight (Pounds): 130 General Appearance: WD/WN, no apparent distress Cardiovascular: normal rate Respiratory/Chest: lungs clear Abdomen: normal bowel sounds, soft Edema: no edema noted Arm (L), no edema noted Arm (R), no edema noted Leg (L), no edema noted Leg (R), no edema noted Pedal (L), no edema noted Pedal (R), no edema noted Generalized Neurologic: moderate needs teacher II-XII grossly normal TY STANLEY Oct 09, 2017 23:04
[2017-10-10] VITALS: BP 137/57
[2017-10-10 04:00] VITALS: BP 129/58
[2017-10-10] MEDS: NovoLOG Insulin Flexpen SUBQ SCH (06:11)
[2017-10-10] MEDS: HYDROmorphone 1mg/ml Carpuject IVPB PRN (06:20)
[2017-10-10 08:00] VITALS: BP 147/58
[2017-10-10] MEDS: Xarelto 10mg tab ORAL SCH (09:11)
[2017-10-10] MEDS: Miralax 17gm pkt ORAL SCH (09:11)
[2017-10-10] MEDS: Docusate 100mg cap ORAL SCH (09:12)
[2017-10-10] MEDS: Dyna-Hex 2% Top Sol 2oz TOPIC SCH (09:12)
[2017-10-10 12:00] VITALS: BP 144/67
--- NOTE | 2017-10-11 00:02 | General Progress Note ---
Assessment/Plan Assessment/Plan depression insomnia improved remeron 15mg qhs the pt is reluctant to go to [facility] the [facility] Subjective Date patient seen: Oct 10, 2017 Neurologic/Psychiatric: Reports: anxiety, depressed, emotional problems Allergies: Coded Allergies: AMOXICILLIN (Verified Allergy, Unknown, RASH, 06/29/14) CORTISONE (Verified Allergy, Unknown, 06/29/14) KETOROLAC (Verified Allergy, Unknown, 06/29/14) PENICILLINS (Verified Allergy, Unknown, 06/29/14) Objective Last 24 Hour Vital Signs Date Time Temp Pulse Resp B/P (MAP) Pulse Ox O2 Delivery O2 Flow Rate FiO2 10/10/17 12:00 98.8 79 18 144/67 100 Room Air 98.8 10/10/17 09:11 78 147/58 10/10/17 08:00 77 10/10/17 08:00 98.4 78 18 147/58 100 Room Air 98.4 10/10/17 04:00 97.7 64 18 129/58 97 97.7 10/10/17 04:00 68 Intake and Output 10/10/17 10/11/17 19:00 07:00 Intake Total 690 ml Balance 690 ml Intake Oral 690 ml # Voids 3 # Bowel Movements 2 Height (Feet): 5 Height (Inches): 5.00 Weight (Pounds): 130 General Appearance: no apparent distress, alert Neurologic: alert, oriented x 3, depressed affect Tiburcio Horn M.D. Oct 11, 2017 00:02
--- NOTE | 2017-10-11 16:23 | Cardiology Report ---
APPROVED REPORT EKG Measurement Heart [id number] Normal sinus rhythm Nonspecific T wave abnormality Abnormal ECG
--- NOTE | 2017-10-11 16:34 | Cardiology Report ---
APPROVED REPORT EKG Measurement Heart [id number] Normal sinus rhythm Nonspecific T wave abnormality Abnormal ECG
--- NOTE | 2017-10-12 09:37 | Cardiology Report ---
APPROVED REPORT EXAM: Two-dimensional and M-mode echocardiogram with Doppler and color Doppler. INDICATION Congestive Heart Failure M-Mode DIMENSIONS IVSd1.4 (0.7-1.1cm)Left Atrium (MM)3.3 (1.6-4.0cm) LVDd3.0 (3.5-5.6cm)Aortic Root2.6 (2.0-3.7cm) PWd1.2 (0.7-1.1cm)Aortic Cusp Exc.1.8 (1.5-2.0cm) LVDs1.1 (2.5-4.0cm) PWs1.9 cm Normal left ventricular chamber size, systolic function and wall motion. Left ventricular ejection fraction estimated to be 60-65 %. Mild left ventricular hypertrophy. No evidence of pericardial effusion. All other cardiac chamber sizes are within normal limits. Focal aortic valve sclerosis with adequate cusp excursion. Mildly thickened mitral valve leaflets with normal excursion. Mild mitral annulus and aortic root calcification. Normal pulmonic valve structure. Normal tricuspid valve structure. IVC dilated at 2.2 cm with physiological collapse. A color flow and spectral Doppler study was performed and revealed: No aortic insufficiency. Trace mitral regurgitation. Mitral diastolic velocities suggest mild left ventricular diastolic dysfunction (Grade I). Trace tricuspid regurgitation. Tricuspid systolic velocities suggests peak right ventricular systolic pressure of 40 mmHg, consistent with mild pulmonary hypertension. No pulmonic regurgitation present.
--- NOTE | 2017-10-13 14:46 | Discharge Summary ---
Discharge Summary Hospital Course Date of Admission Oct 07, 2017 at 16:27 Date of Discharge Oct 10, 2017 at 12:50 Admitting Diagnosis CHEST PAIN HPI Natalee Dowling is a 72 year old female who was admitted on Oct 07, 2017 at 16:27 for Chest Pain Hospital Course dc summary #[id number] Discharge Medications Continued Medications: Alendronate Sodium* (Fosamax*) 70 Mg Tablet 70 MG ORAL ONCE A WEEK, TAB Once a week on Mondays Alprazolam* (Xanax*) 0.25 Mg Tablet 0.25 MG ORAL THREE TIMES A DAY, #30 TAB 0 Refills Amlodipine Besylate (Norvasc) 5 Mg Tab 5 MG ORAL BID, TAB Atorvastatin Calcium* (Lipitor*) 10 Mg Tablet 10 MG ORAL BEDTIME, TAB Gabapentin* (Gabapentin*) 300 Mg Capsule 300 MG ORAL THREE TIMES A DAY for 10 Days, #30 CAP 0 Refills Methocarbamol* (Robaxin-750*) 750 Mg Tablet 750 MG PO TID, #30 TAB 0 Refills Ondansetron* (Zofran*) 4 Mg Tablet 4 MG ORAL Q6H PRN for Nausea & Vomiting, TAB Polyethylene Glycol* (Miralax*) 17 Gm Powd.pack 17 GM ORAL DAILY, PACKET Rivaroxaban (Xarelto*) 10 Mg Tablet 20 MG ORAL DAILY, TAB Discharge Condition Upon Discharge: stable Discharge Disposition Patient was discharged to Home () Discharge Diagnoses: Discharge Instructions Discharge Instructions Special Instructions I have been assigned to complete a D/C Summary on this account. I was not involved in the patient management Malinda Huff NP ([place]anchtein) Oct 13, 2017 14:46
--- NOTE | 2017-10-14 15:45 | Discharge Summary 2 SIG ---
DATE OF ADMISSION: 10/07/2017 DATE OF DISCHARGE: 10/10/2017 REASON FOR ADMISSION: 72-year-old female with history of lupus, hypercoagulable state, arthritis, anemia, and hypertension, came to emergency room with complaint of chest pain and some dyspnea. She denied fever or chills. She denied abdominal pain. No nausea. No vomiting. No change in bowel movement. No urinary symptoms. The patient with a chronic back pain and was on pain medications. The patient had a complicated medical history including history of hypercoagulable condition (under the care of Dr. Osborn), history of DVT and PE, history of CVA, lupus, diabetes, controlled with diet; hypertension, arthritis, fibrosis of the lung, hysterectomy, cholecystectomy, appendectomy, and back surgery, sleep apnea. Upon evaluation in the emergency room, the patient was afebrile. Troponin was negative. EKG revealed normal sinus rhythm. Chest x-ray revealed possible atelectasis versus opacity of right lower extremity. The patient was admitted with chest pain, rule out acute coronary syndrome. HOSPITAL COURSE: The patient was admitted. Cardiology, Pulmonology, and Psychiatric consults were requested, who closely followed. The patient was placed on telemetry floor. Serial troponin x3 were negative. EKG revealed no acute ischemic changes. Therefore, the patient was ruled out for acute CA. CT angiogram revealed no evidence of pulmonary emboli, but it showed chronic lung disease. Venous duplex of bilateral lower extremities was negative. Echocardiogram revealed ejection fraction 50 to 55%, left ventricular systolic pressure of 14, consistent with mild pulmonary hypertension. Myocardial perfusion scan test was nonischemic with calculated ejection fraction greater than 70%. Xarelto was continued. No evidence of bleeding. Gastrointestinal prophylaxis provided. Volumes were closely monitored. Per Cardiology, chest pain was atypical. Patient with anxiety and major depression, grieving the recent of her son. Psychiatrist seen and evaluated the patient, and started the patient on Remeron. The patient with a history of diabetes, controlled with a diet. Hemoglobin A1c -7.4. The patient was reinforced importance of low carbohydrates, no concentrated sweets diet. Blood pressure was managed with calcium channel jesus and remained stable. Statin was continued. Lipid panel was within normal limits. Pain management provided. Bowel regimen instituted. TSH was within normal limits. Hemoglobin and hematocrit remained on the baseline. No trend down. The patient was stable for discharge. FINAL DIAGNOSES: 1. Atypical chest pain. 2. Anxiety 3. History of deep venous thrombosis and pulmonary embolism (on chronic anticoagulation- Xarelto). 4. Major depressive disorder. 5. Hypertension. 6. Hyperlipidemia. 7. Gastroesophageal reflux disease. 8. Lupus with arthritis. 9. Anemia. DISCHARGE MEDICATIONS: See medication reconciliation list. DISCHARGE INSTRUCTIONS: The patient discharged home. Follow up with the primary care provider. Vito Malin M.D. I have been assigned to dictate discharge summary on this account and I was not involved in the patient's management. Malinda QuinonezOrange Regional Medical CenterMoni N.PEdie DR: LUCAS JOB#: [id number] CC: SARAH
== END 2017-10-10 12:50 | disposition home or self-care (01) | DRG 194 ==
LOC: EDBD 15:22 → EMR 16:03 → 2E 16:27 → EDBEDREQ 16:31 → 2E 20:08
DX: R09.1 Pleurisy (principal); D68.62 Lupus anticoagulant syndrome; M32.9 Systemic lupus erythematosus, unspecified; E11.9 Type 2 diabetes mellitus without complications; F32.9 Major depressive disorder, single episode, unspecified; D64.9 Anemia, unspecified; E78.5 Hyperlipidemia, unspecified; Z86.718 Personal history of other venous thrombosis and embolism; M19.90 Unspecified osteoarthritis, unspecified site; Z86.711 Personal history of pulmonary embolism; Z79.01 Long term (current) use of anticoagulants; K21.9 Gastro-esophageal reflux disease without esophagitis; F41.9 Anxiety disorder, unspecified; G89.29 Other chronic pain; M54.9 Dorsalgia, unspecified; Z88.6 Allergy status to analgesic agent; Z88.8 Allergy status to other drugs, medicaments and biological substances; Z86.73 Personal history of transient ischemic attack (TIA), and cerebral infarction without residual deficits; Z88.1 Allergy status to other antibiotic agents; F17.200 Nicotine dependence, unspecified, uncomplicated; Z91.14 Patient's other noncompliance with medication regimen; F43.20 Adjustment disorder, unspecified
CPT/HCPCS: 36415; 71045; 71275; 78452; 80048; 80053; 80061; 80307; 81003; 82550; 82553; 82962; 83036; 84443; 84484; 85007; 85025; 85379; 85610; 85730; 93005; 93017; 93306; 93970; 99285; J1815; J2785; J8499

== ENCOUNTER 2017-10-13 10:59 | Emergency (ER) | payer MEDICAID, MEDICARE ==
[~2017-10-13] VITALS: Ht 165.1 cm; Wt 59.0 kg
[~2017-10-13 10:59] MED LIST changes: +ATORVASTATIN CA10 MG ORAL; +XANAX0.25 MG ORAL; +ZOFRAN4 M3 ORAL
[2017-10-13 11:20] VITALS: BP 160/66
--- NOTE | 2017-10-13 11:33 | Emergency Room Report ---
History of Present Illness General Chief Complaint: General Complaint Source: Patient Present Illness HPI 72-year-old female presents with request for removal of IV from left breast. Was discharged from here 3 days ago, states IV was not removed. Nursing review of notes indicates that "all lines were removed". She denies having been to other hospital. Denies any pain or fever or chills or infection took. Area. Allergies: Coded Allergies: AMOXICILLIN (Verified Allergy, Unknown, RASH, 06/29/14) CORTISONE (Verified Allergy, Unknown, 06/29/14) KETOROLAC (Verified Allergy, Unknown, 06/29/14) PENICILLINS (Verified Allergy, Unknown, 06/29/14) Patient History Past Medical History: see triage record Past Surgical History: none Pertinent Family History: none Social History: Denies: smoking, alcohol use, drug use Last Menstrual Period: Post Now: No Immunizations: UTD Reviewed Nursing Documentation: PMH: Agreed, PSxH: Agreed Nursing Documentation-PMH Hx Cardiac Problems: Yes - Anemia Hx Hypertension: Yes Hx Pacemaker: No Hx Asthma: No - LUPUS, ARTHRITIS Hx COPD: Yes Hx Diabetes: Yes Hx Cancer: No Hx Gastrointestinal Problems: Yes - Pancreatitis Hx Dialysis: No Hx Neurological Problems: Yes Hx Cerebrovascular Accident: Yes Hx Transient Ischemic Attacks: Yes Hx Seizures: Yes Hx Vertigo: Yes Hx Headaches: Yes Hx Weakness: Yes Review of Systems All Other Systems: negative except mentioned in HPI Physical Exam Vital Signs Date Time Temp Pulse Resp B/P (MAP) Pulse Ox O2 Delivery O2 Flow Rate FiO2 10/13/17 11:05 98.3 82 17 160/66 97 Room Air 98.2 Sp02 EP Interpretation: reviewed, normal General Appearance: normal inspection, well appearing, no apparent distress, alert, GCS 15, non-toxic Head: normocephalic, atraumatic Eyes: bilateral eye PERRL, bilateral eye EOMI ENT: normal ENT inspection, hearing grossly normal, normal pharynx, no angioedema, normal voice, TMs + canals normal, uvula midline, moist mucus membranes Neck: normal inspection, full range of motion, supple, thyroid normal, no meningismus, no bony tend Respiratory: normal inspection, lungs clear, normal breath sounds, no rhonchi, no respiratory distress, no retraction, no accessory muscle use, no wheezing, speaking full sentences Cardiovascular #1: regular rate, rhythm, no edema, no JVD, normal capillary refill Gastrointestinal: normal inspection, normal bowel sounds, non tender, soft, no mass, no peritonitis, non-distended, no guarding, no hernia, no pulsatile mass Genitourinary: no CVA tenderness Musculoskeletal: normal inspection, back normal, normal range of motion, no calf tenderness, pelvis stable, Darrell's Sign negative Neurologic: normal inspection, alert, oriented x3, responsive, operations manager/coordinator III-XII nml as tested, motor strength/tone normal, cerebellar normal, normal gait, speech normal Psychiatric: normal inspection, judgement/insight normal, mood/affect normal, no suicidal/homicidal ideation, no delusions Skin: normal inspection, normal color, no rash, other - left breast: peripheral IV in place. No sign of infection around site. Lymphatic: normal inspection, no adenopathy Medical Decision Making Diagnostic Impression: Primary Impression: Change or removal of nonsurgical wound dressing ER Course VSS, afebrile IV removed No active bleeding No complications ER course: Patient has remained stable during ED stay. Disposition: Patient is to be discharged to home. Patient is instructed to follow up with their primary care doctor within 5 days. Strict return precautions discussed with patient such as fever, chills, worsening/severe pain, nausea, vomiting, which may indicate severe illness. Patient verbalizes understanding and agrees with plan. Please note that this Emergency Department Report was dictated using [employer] consultant technology software, occasionally this can lead to erroneous entry secondary to interpretation by the dictation equipment Last Vital Signs Date Time Temp Pulse Resp B/P (MAP) Pulse Ox O2 Delivery O2 Flow Rate FiO2 10/13/17 11:20 98.2 82 17 160/66 97 Room Air 98.2 Status: improved Disposition: HOME, SELF-CARE Referrals: NOT CHOSEN FLAQUITA/,REFERRING (PCP) KARINA CAPELLAN M.D. Oct 13, 2017 11:33
[2017-10-13 11:35] VITALS: BP 160/66
== END 2017-10-13 11:37 | disposition home or self-care (01) ==
LOC: EMR 11:30
DX: Z48.00 Encounter for change or removal of nonsurgical wound dressing (principal); I10 Essential (primary) hypertension; J44.9 Chronic obstructive pulmonary disease, unspecified; E11.9 Type 2 diabetes mellitus without complications; M32.9 Systemic lupus erythematosus, unspecified; Z86.73 Personal history of transient ischemic attack (TIA), and cerebral infarction without residual deficits; Z88.0 Allergy status to penicillin; Z88.8 Allergy status to other drugs, medicaments and biological substances
CPT/HCPCS: 99281

== ENCOUNTER 2018-01-23 14:21 | Inpatient (IN) | payer MEDICARE, OTHER, MEDICAID ==
[~2018-01-23] VITALS: Ht 165.1 cm; Wt 47.4 kg
[2018-01-23 15:34] VITALS: BP 134/57
[2018-01-23 15:43] LABS: APPEARANCE,URINE CLEAR; BILIRUBIN, URINE NEGATIVE (NEGATIVE); COLOR,URINE PALE YELLOW; GLUCOSE, URINE (UA) 3+ (NEGATIVE); KETONES,URINE NEGATIVE (NEGATIVE); LEUKOCYTE ESTERASE ,URINE 3+ (NEGATIVE); NITRITE,URINE NEGATIVE (NEGATIVE); PH,URINE 7 (4.5-8.0); PROTEIN,URINE 1+ (NEGATIVE); UROBILINOGEN,URINE NORMAL MG/DL (0.0-1.0)
[2018-01-23 15:58] LABS: HEMATOCRIT 38.8 % (37.0-47.0); HEMOGLOBIN 12.6 G/DL (12.0-16.0); MEAN CORPUSCULAR VOLUME 86 FL (80-99); PLATELET COUNT 162 K/UL (150-450); RED CELL DISTRIBUTION WIDTH 12.9 % (11.6-14.8); WHITE BLOOD COUNT 2.8 K/UL (4.8-10.8)
[2018-01-23 16:00] LABS: ANION GAP 9 mmol/L (5-15); BLOOD UREA NITROGEN 13 mg/dL (7-18); CALCIUM 7.8 MG/DL (8.5-10.1); CARBON DIOXIDE 25 MMOL/L (21-32); CHLORIDE 107 MMOL/L (98-107); CREATININE 1.1 MG/DL (0.55-1.30); POTASSIUM 4.2 MMOL/L (3.5-5.1); SODIUM 141 MMOL/L (136-145)
[2018-01-23] MEDS ORDERED: Morphine Sulfate 4mg/ml Inj IVP ONE ×2 (16:00→17:00)
[2018-01-23 16:14] LABS: ALANINE AMINOTRANSFERASE 20 U/L (12-78); ALBUMIN 3.3 G/DL (3.4-5.0); ALBUMIN/GLOBULIN RATIO 0.8 (1.0-2.7); ALKALINE PHOSPHATASE 97 U/L (46-116); ASPARTATE AMINO TRANSFERASE 27 U/L (15-37); BILIRUBIN,TOTAL 0.3 MG/DL (0.2-1.0); CKMB < 0.5 NG/ML (0.0-3.6); CREATINE KINASE 58 U/L (26-308)
--- NOTE | 2018-01-23 16:17 | Diagnostic Imaging Report ---
EXAM: XR Chest, 1 View CLINICAL HISTORY: Chest pain TECHNIQUE: Frontal view of the chest. COMPARISON: Chest x-ray dated 10/07/17. FINDINGS: Lungs: Minimal subsegmental atelectasis in the medial right lung base, not significantly changed compared to the prior exam. The lungs otherwise appear clear. Pleural space: Unremarkable. No pneumothorax. Heart: Unremarkable. No cardiomegaly. Mediastinum: Unremarkable. Bones/joints: Unremarkable. Soft tissues: Linear radiodense wires overlie the left chest wall. Tubes, lines and devices: Stable positioning of a right IJ approach central venous catheter with the tip in the region of the SVC. Stable positioning of spinal stimulator leads in the mid thoracic spine. Upper abdomen: Surgical clips in the right upper abdominal quadrant suggest prior cholecystectomy. IMPRESSION: Minimal subsegmental atelectasis in the medial right lung base, not significantly changed compared to the prior exam.
[2018-01-23] MEDS ORDERED: Dicyclomine HCl 10mg/5ml oral soln ORAL ONE (17:15)
[2018-01-23] MEDS ORDERED: Lidocaine 2% Visc 15ml soln ORAL ONE (17:15)
[2018-01-23] MEDS ORDERED: Mylanta II UD 30ml ORAL ONE (17:15)
[2018-01-23] MEDS ORDERED: Albuterol/Ipratropium 3ml neb HHN PRN (17:30)
[2018-01-23] MEDS ORDERED: Miralax 17gm pkt ORAL PRN (17:30)
[2018-01-23] MEDS ORDERED: Acetaminophen 650 MG SUPP RECTAL PRN ×2 (17:30)
[2018-01-23 17:34] VITALS: BP 146/106
[2018-01-23] MEDS ORDERED: Methocarbamol 750mg tab ORAL PRN (17:45)
[2018-01-23 19:30] VITALS: BP 153/54
[2018-01-23 19:52] VITALS: BP 139/66
[2018-01-23] MEDS ORDERED: Xarelto 10mg tab ORAL SCH (20:00)
[2018-01-23] MEDS: HYDROmorphone 4mg tab ORAL PRN (20:56)
[2018-01-23] MEDS: Docusate 100mg cap ORAL SCH (20:57)
[2018-01-23] MEDS ORDERED: Heparin 5000 units/ml inj SUBQ SCH (21:00)
[2018-01-24] VITALS: BP 135/70
[2018-01-24] MEDS: HYDROmorphone 4mg tab ORAL PRN ×3 (02:59→18:32)
[2018-01-24 04:00] VITALS: BP 138/72
--- NOTE | 2018-01-24 07:47 | Emergency Room Report ---
History of Present Illness General Chief Complaint: General Complaint Source: Patient Present Illness HPI Patient presents with complaints of epigastric discomfort Also complains of back pain Denies any chest pain or shortness of breath Denies any visual changes denies any dysuria frequency Patient had increased nausea Denies any vomiting Denies any flank pain Pain is described as sharp and burning 5 out of 10 Denies any change with eating Allergies: Coded Allergies: AMOXICILLIN (Verified Allergy, Unknown, RASH, 06/29/14) CORTISONE (Verified Allergy, Unknown, 06/29/14) KETOROLAC (Verified Allergy, Unknown, 06/29/14) PENICILLINS (Verified Allergy, Unknown, 06/29/14) Patient History Past Medical History: see triage record Pertinent Family History: none Last Menstrual Period: 1965 : 5 Para: 3 Reviewed Nursing Documentation: PMH: Agreed; PSxH: Agreed Nursing Documentation-PMH Past Medical History: No History, Except For Hx Cardiac Problems: Yes - Anemia, HTN, Hx Hypertension: Yes Hx Pacemaker: No Hx Asthma: No - LUPUS, ARTHRITIS Hx COPD: Yes Hx Diabetes: Yes Hx Cancer: No Hx Gastrointestinal Problems: Yes - Pancreatitis, Constipation Hx Dialysis: No Hx Neurological Problems: Yes - Two laminectomies Hx Cerebrovascular Accident: Yes Hx Transient Ischemic Attacks: Yes Hx Seizures: Yes Hx Vertigo: Yes Hx Headaches: Yes Hx Weakness: Yes Review of Systems All Other Systems: negative except mentioned in HPI Physical Exam Vital Signs Date Time Temp Pulse Resp B/P (MAP) Pulse Ox O2 Delivery O2 Flow Rate FiO2 01/23/18 14:35 98.7 91 17 139/71 97 Room Air 98.8 Sp02 EP Interpretation: reviewed, normal General Appearance: well appearing, no apparent distress Head: normocephalic, atraumatic Eyes: right eye other - Lazy eye; bilateral eye PERRL ENT: hearing grossly normal, normal pharynx, TMs + canals normal, uvula midline Neck: full range of motion, supple, no meningismus, no bony tend Respiratory: lungs clear, normal breath sounds, no rhonchi, no respiratory distress, no retraction, no accessory muscle use Cardiovascular #1: normal peripheral pulses, regular rate, rhythm, no edema, no gallop, no JVD, no murmur Gastrointestinal: normal bowel sounds, non tender - However subjectively points to the epigastric area, soft, no mass, no organomegaly, non-distended, no guarding, no hernia, no pulsatile mass, no rebound Genitourinary: no CVA tenderness Musculoskeletal: normal inspection Neurologic: oriented x3, responsive, city administrator III-XII nml as tested, motor strength/ tone normal, sensory intact Psychiatric: mood/affect normal Skin: normal color, no rash, warm/dry, palpation normal Lymphatic: normal inspection, no adenopathy Medical Decision Making Diagnostic Impression: Primary Impression: Abdominal pain Additional Impressions: Low back pain Lupus ER Course With the history exam and presentation, multiple differentials considered, including but not limited to appendicitis, gastritis, cholecystitis, diverticulitis Patient had extensive blood work initiated Imaging study of the chest is negative Patient felt mildly improved with pain medication here Given the epigastric discomfort and the presentation given the patient's comorbidities Patient is admitted for further care Also provided with GI consultation Labs Test 01/23/18 15:25 01/23/18 17:35 White Blood Count 2.8 K/UL (4.8-10.8) Red Blood Count 4.50 M/UL (4.20-5.40) Hemoglobin 12.6 G/DL (12.0-16.0) Hematocrit 38.8 % (37.0-47.0) Mean Corpuscular Volume 86 FL (80-99) Mean Corpuscular Hemoglobin 28.0 PG (27.0-31.0) Mean Corpuscular Hemoglobin Concent 32.4 G/DL (32.0-36.0) Red Cell Distribution Width 12.9 % (11.6-14.8) Platelet Count 162 K/UL (150-450) Mean Platelet Volume 8.1 FL (6.5-10.1) Neutrophils (%) (Auto) % (45.0-75.0) Lymphocytes (%) (Auto) % (20.0-45.0) Monocytes (%) (Auto) % (1.0-10.0) Eosinophils (%) (Auto) % (0.0-3.0) Basophils (%) (Auto) % (0.0-2.0) Differential Total Cells Counted 100 Neutrophils % (Manual) 60 % (45-75) Lymphocytes % (Manual) 24 % (20-45) Monocytes % (Manual) 14 % (1-10) Eosinophils % (Manual) 1 % (0-3) Basophils % (Manual) 0 % (0-2) Band Neutrophils 1 % (0-8) Platelet Estimate Adequate Platelet Morphology Normal Red Blood Cell Morphology Normal Prothrombin Time 10.2 SEC (9.30-11.50) Prothromb Time International Ratio 1.0 (0.9-1.1) Activated Partial Thromboplast Time 55 SEC (23-33) Urine Color Pale yellow Urine Appearance Clear Urine pH 7 (4.5-8.0) Urine Specific Pep 1.010 (1.005-1.035) Urine Protein 1+ (NEGATIVE) Urine Glucose (UA) 3+ (NEGATIVE) Urine Ketones Negative (NEGATIVE) Urine Occult Blood Negative (NEGATIVE) Urine Nitrite Negative (NEGATIVE) Urine Bilirubin Negative (NEGATIVE) Urine Urobilinogen Normal MG/DL (0.0-1.0) Urine Leukocyte Esterase 3+ (NEGATIVE) Urine RBC 0-2 /HPF (0 - 2) Urine WBC 2-4 /HPF (0 - 2) Urine Squamous Epithelial Cells Few /LPF (NONE/OCC) Urine Amorphous Sediment Few /LPF (NONE) Urine Bacteria Few /HPF (NONE) Sodium Level 141 MMOL/L (136-145) Potassium Level 4.2 MMOL/L (3.5-5.1) Chloride Level 107 MMOL/L (98-107) Carbon Dioxide Level 25 MMOL/L (21-32) Anion Gap 9 mmol/L (5-15) Blood Urea Nitrogen 13 mg/dL (7-18) Creatinine 1.1 MG/DL (0.55-1.30) Estimat Glomerular Filtration Rate mL/min (>60) Glucose Level 174 MG/DL (74-106) Lactic Acid Level 0.90 mmol/L (0.4-2.0) Calcium Level 7.8 MG/DL (8.5-10.1) Total Bilirubin 0.3 MG/DL (0.2-1.0) Aspartate Amino Transf (AST/SGOT) 27 U/L (15-37) Alanine Aminotransferase (ALT/SGPT) 20 U/L (12-78) Alkaline Phosphatase 97 U/L (46-116) Total Creatine Kinase 58 U/L (26-308) Creatine Kinase MB < 0.5 NG/ML (0.0-3.6) Creatine Kinase MB Relative Index 0.8 Troponin I 0.000 ng/mL (0.000-0.056) Total Protein 7.5 G/DL (6.4-8.2) Albumin 3.3 G/DL (3.4-5.0) Globulin 4.2 g/dL Albumin/Globulin Ratio 0.8 (1.0-2.7) Pro-B-Type Natriuretic Peptide 24 pg/mL (0-125) Rhythm Strip Diag. Results EP Interpretation: yes Rate: 87 Rhythm: NSR, no PVC's, no ectopy Chest X-Ray Diagnostic Results Chest X-Ray Diagnostic Results : Chest X-Ray Ordered: Yes # of Views/Limited/Complete: 1 View Indication: Chest Pain EP Interpretation: Yes Interpretation: no consolidation, no effusion, no pneumothorax Impression: No acute disease Electronically Signed by: Di Nunez DO Last Vital Signs Date Time Temp Pulse Resp B/P (MAP) Pulse Ox O2 Delivery O2 Flow Rate FiO2 01/24/18 04:00 97.8 66 20 138/72 100 Room Air 97.8 Status: improved Disposition: ADMITTED INPATIENT Condition: Serious Referrals: Neville Hendricks MD (PCP) Di Nunez DO Jan 24, 2018 07:47
[2018-01-24 08:00] VITALS: BP 134/60
[2018-01-24] MEDS: Docusate 100mg cap ORAL SCH ×2 (08:21→20:20)
[2018-01-24 08:36] LABS: HEMATOCRIT 36.4 % (37.0-47.0); HEMOGLOBIN 12.1 G/DL (12.0-16.0); MEAN CORPUSCULAR VOLUME 87 FL (80-99); PLATELET COUNT 163 K/UL (150-450); RED BLOOD COUNT 4.19 M/UL (4.20-5.40); RED CELL DISTRIBUTION WIDTH 13.1 % (11.6-14.8); WHITE BLOOD COUNT 2.3 K/UL (4.8-10.8)
[2018-01-24 09:09] LABS: ALANINE AMINOTRANSFERASE 23 U/L (12-78); ALBUMIN 3.2 G/DL (3.4-5.0); ALBUMIN/GLOBULIN RATIO 0.8 (1.0-2.7); ALKALINE PHOSPHATASE 91 U/L (46-116); ANION GAP 4 mmol/L (5-15); ASPARTATE AMINO TRANSFERASE 22 U/L (15-37); BILIRUBIN,TOTAL 0.4 MG/DL (0.2-1.0); BLOOD UREA NITROGEN 16 mg/dL (7-18); CALCIUM 8.2 MG/DL (8.5-10.1); CARBON DIOXIDE 31 MMOL/L (21-32); CHLORIDE 109 MMOL/L (98-107); CREATININE 1.1 MG/DL (0.55-1.30); POTASSIUM 4.3 MMOL/L (3.5-5.1); SODIUM 144 MMOL/L (136-145)
--- NOTE | 2018-01-24 09:39 | History and Physical ---
History of Present Illness General Date patient seen: Jan 24, 2018 Time patient seen: 09:35 Reason for Hospitalization: abd pain, SOB Present Illness HPI 72y/o female with pmh of HTN, HLD, SLE, h/o DVT/PE (on eliquis), CVA, GERD, chronic constipation, anemia of chronic disease, chronic back pain who presents with abd pain and SOB. Pt c/o increasing abd discomfort and back pain since yesterday. Also with associated nausea but no emesis. Described epigastric abd pain as crampy, 6-8. Pt denies f/c, emesis, diarrhea, dysuria, focal weakness /numbness. C/o intermittent constipation. Also c/o SOB yesterday in setting of her pain. Denies chest pain, palpitations, dizziness. Of note, pt states she lost her son in Sep 2017. Pt also notes h/o diabetes, previously on meds, but was stopped and now controlled w/ diet and exercise. She also started smoking again after loss of her son. Pt also notes recent fall where she tripped. Denies LOC, head trauma. Has leg pain as a result but now improving. Able to ambulate. Allergies: Coded Allergies: AMOXICILLIN (Verified Allergy, Unknown, RASH, 06/29/14) CORTISONE (Verified Allergy, Unknown, 06/29/14) KETOROLAC (Verified Allergy, Unknown, 06/29/14) PENICILLINS (Verified Allergy, Unknown, 06/29/14) Medication History Scheduled Alendronate Sodium* (Fosamax*), 70 MG ORAL ONCE A WEEK, (Reported) Alprazolam* (Xanax*), 0.25 MG ORAL THREE TIMES A DAY, (Reported) Amlodipine Besylate (Norvasc), 5 MG ORAL BID, (Reported) Atorvastatin Calcium* (Lipitor*), 10 MG ORAL BEDTIME, (Reported) Gabapentin* (Gabapentin*), 300 MG ORAL THREE TIMES A DAY Hydromorphone HCl (Dilaudid), 4 MG ORAL TID, (Reported) Lidocaine (Lidoderm), 1 PATCH TOPIC DAILY Methocarbamol* (Robaxin-750*), 750 MG PO TID Polyethylene Glycol* (Miralax*), 17 GM ORAL DAILY, (Reported) Rivaroxaban (Xarelto*), 20 MG ORAL DAILY, (Reported) Scheduled PRN Ondansetron* (Zofran*), 4 MG ORAL Q6H PRN for Nausea & Vomiting, (Reported) Oxycodone Hcl (Oxycodone Hcl), 60 MG ORAL QHS PRN for For Pain, (Reported) Patient History History Provided By: Patient, Medical Record, PMD Healthcare decision maker Resuscitation status Full Code Advanced Directive on File No Past Medical/Surgical History Past Medical/Surgical History: (1) GERD (gastroesophageal reflux disease) (2) Chronic constipation (3) Lupus (4) Osteoarthritis (5) Anemia (6) HTN (hypertension) (7) HLD (hyperlipidemia) (8) DVT (deep venous thrombosis) Family History Family History: Patient reports no known family medical history. Social History Social History: (1) lives on own (2) Smoker Review of Systems Constitutional: Reports: weakness Eye: Reports: no symptoms ENT: Reports: no symptoms Respiratory: Reports: shortness of breath Cardiovascular: Reports: no symptoms Gastrointestinal: Reports: abdominal pain, constipation, nausea Genitourinary: Reports: no symptoms Musculoskeletal: Reports: no symptoms Skin: Reports: no symptoms Psychiatric: Reports: no symptoms Neurological: Reports: no symptoms Endocrine: Reports: no symptoms Hematologic/Lymphatic: Reports: no symptoms Physical Exam Physical Exam Narrative General: alert, cooperative, no distress, appears stated age Head: normocephalic, without obvious abnormality, atraumatic Eyes: conjunctivae/corneas clear. PERRL, EOM's intact Throat: lips, mucosa, and tongue normal. MMM Neck: supple, symmetrical, trachea midline, and no JVD Lungs: clear to auscultation bilaterally Heart: regular rate and rhythm, S1, S2 normal, no murmur, click, rub or gallop Abdomen: soft, +TTP of epigastric area, non-distended, bowel sounds normal; no masses or organomegaly Extremities: extremities normal, atraumatic, no cyanosis or edema Pulses: 2+ and symmetric Skin: skin color, texture, turgor normal; no rashes or lesions Neurologic: grossly normal, no focal deficits Last 24 Hour Vital Signs Date Time Temp Pulse Resp B/P (MAP) Pulse Ox O2 Delivery O2 Flow Rate FiO2 01/24/18 08:21 69 134/60 01/24/18 08:00 64 01/24/18 08:00 98.1 69 18 134/60 97 Room Air 98.1 01/24/18 04:00 97.8 66 20 138/72 100 Room Air 97.8 01/24/18 04:00 69 01/24/18 00:00 73 01/24/18 00:00 98.2 62 20 135/70 100 Room Air 98.2 01/23/18 20:57 60 139/66 01/23/18 20:06 98.0 57 16 153/54 100 Room Air 98.0 01/23/18 19:52 97.7 60 18 139/66 100 Room Air 97.7 01/23/18 19:30 98.0 57 16 153/54 100 Room Air 98.0 01/23/18 17:34 97.9 60 16 146/106 100 Room Air 97.9 01/23/18 17:24 98.0 01/23/18 16:54 98.8 01/23/18 16:40 98.8 01/23/18 16:01 98.8 01/23/18 15:34 98.8 66 16 134/57 100 Room Air 98.8 01/23/18 14:35 98.7 91 17 139/71 97 Room Air 98.8 Intake and Output 01/23/18 01/24/18 19:00 07:00 Intake Total 120 ml Output Total 60 ml Balance 60 ml Intake Oral 120 ml Output Urine Total 60 ml # Voids 1 1 Laboratory Tests Test 01/23/18 15:25 01/23/18 17:35 01/24/18 06:50 White Blood Count 2.8 K/UL (4.8-10.8) L 2.3 K/UL (4.8-10.8) L Red Blood Count 4.50 M/UL (4.20-5.40) 4.19 M/UL (4.20-5.40) L Hemoglobin 12.6 G/DL (12.0-16.0) 12.1 G/DL (12.0-16.0) Hematocrit 38.8 % (37.0-47.0) 36.4 % (37.0-47.0) L Mean Corpuscular Volume 86 FL (80-99) 87 FL (80-99) Mean Corpuscular Hemoglobin 28.0 PG (27.0-31.0) 28.9 PG (27.0-31.0) Mean Corpuscular Hemoglobin Concent 32.4 G/DL (32.0-36.0) 33.2 G/DL (32.0-36.0) Red Cell Distribution Width 12.9 % (11.6-14.8) 13.1 % (11.6-14.8) Platelet Count 162 K/UL (150-450) 163 K/UL (150-450) Mean Platelet Volume 8.1 FL (6.5-10.1) 7.9 FL (6.5-10.1) Neutrophils (%) (Auto) % (45.0-75.0) % (45.0-75.0) Lymphocytes (%) (Auto) % (20.0-45.0) % (20.0-45.0) Monocytes (%) (Auto) % (1.0-10.0) % (1.0-10.0) Eosinophils (%) (Auto) % (0.0-3.0) % (0.0-3.0) Basophils (%) (Auto) % (0.0-2.0) % (0.0-2.0) Differential Total Cells Counted 100 Neutrophils % (Manual) 60 % (45-75) Pending Lymphocytes % (Manual) 24 % (20-45) Pending Monocytes % (Manual) 14 % (1-10) H Eosinophils % (Manual) 1 % (0-3) Basophils % (Manual) 0 % (0-2) Band Neutrophils 1 % (0-8) Platelet Estimate Adequate Pending Platelet Morphology Normal Pending Red Blood Cell Morphology Normal Prothrombin Time 10.2 SEC (9.30-11.50) Prothromb Time International Ratio 1.0 (0.9-1.1) Activated Partial Thromboplast Time 55 SEC (23-33) H Urine Color Pale yellow Urine Appearance Clear Urine pH 7 (4.5-8.0) Urine Specific [place] 1.010 (1.005-1.035) Urine Protein 1+ (NEGATIVE) H Urine Glucose (UA) 3+ (NEGATIVE) H Urine Ketones Negative (NEGATIVE) Urine Occult Blood Negative (NEGATIVE) Urine Nitrite Negative (NEGATIVE) Urine Bilirubin Negative (NEGATIVE) Urine Urobilinogen Normal MG/DL (0.0-1.0) Urine Leukocyte Esterase 3+ (NEGATIVE) H Urine RBC 0-2 /HPF (0 - 2) Urine WBC 2-4 /HPF (0 - 2) Urine Squamous Epithelial Cells Few /LPF (NONE/OCC) Urine Amorphous Sediment Few /LPF (NONE) H Urine Bacteria Few /HPF (NONE) Sodium Level 141 MMOL/L (136-145) 144 MMOL/L (136-145) Potassium Level 4.2 MMOL/L (3.5-5.1) 4.3 MMOL/L (3.5-5.1) Chloride Level 107 MMOL/L (98-107) 109 MMOL/L (98-107) H Carbon Dioxide Level 25 MMOL/L (21-32) 31 MMOL/L (21-32) Anion Gap 9 mmol/L (5-15) 4 mmol/L (5-15) L Blood Urea Nitrogen 13 mg/dL (7-18) 16 mg/dL (7-18) Creatinine 1.1 MG/DL (0.55-1.30) 1.1 MG/DL (0.55-1.30) Estimat Glomerular Filtration Rate mL/min (>60) mL/min (>60) Glucose Level 174 MG/DL (74-106) H 110 MG/DL (74-106) H Lactic Acid Level 0.90 mmol/L (0.4-2.0) Calcium Level 7.8 MG/DL (8.5-10.1) L 8.2 MG/DL (8.5-10.1) L Total Bilirubin 0.3 MG/DL (0.2-1.0) 0.4 MG/DL (0.2-1.0) Aspartate Amino Transf (AST/SGOT) 27 U/L (15-37) 22 U/L (15-37) Alanine Aminotransferase (ALT/SGPT) 20 U/L (12-78) 23 U/L (12-78) Alkaline Phosphatase 97 U/L (46-116) 91 U/L (46-116) Total Creatine Kinase 58 U/L (26-308) Creatine Kinase MB < 0.5 NG/ML (0.0-3.6) Creatine Kinase MB Relative Index 0.8 Troponin I 0.000 ng/mL (0.000-0.056) Total Protein 7.5 G/DL (6.4-8.2) 7.2 G/DL (6.4-8.2) Albumin 3.3 G/DL (3.4-5.0) L 3.2 G/DL (3.4-5.0) L Globulin 4.2 g/dL 4.0 g/dL Albumin/Globulin Ratio 0.8 (1.0-2.7) L 0.8 (1.0-2.7) L Pro-B-Type Natriuretic Peptide 24 pg/mL (0-125) Hemoglobin A1c 7.7 % (4.3-6.0) H Magnesium Level 2.2 MG/DL (1.8-2.4) Thyroid Stimulating Hormone (TSH) 0.888 uiU/mL (0.358-3.740) Height (Feet): 5 Height (Inches): 5.00 Weight (Pounds): 135 Medications Current Medications Medications (Trade) Dose Ordered Sig/Alexys Route PRN Reason Start Time Stop Time Status Last Admin Dose Admin Acetaminophen (Tylenol) 650 mg Q4H PRN ORAL Mild Pain (Pain Scale 1-3) 01/23/18 17:30 02/22/18 17:29 Acetaminophen (Tylenol) 650 mg Q4H PRN ORAL fever 01/23/18 17:30 02/22/18 17:29 Acetaminophen (Tylenol) 650 mg Q4H PRN RECTAL Mild Pain (Pain Scale 1-3) 01/23/18 17:30 02/22/18 17:29 Acetaminophen (Tylenol) 650 mg Q4H PRN RECTAL fever 01/23/18 17:30 02/22/18 17:29 Albuterol/ Ipratropium (Albuterol/ Ipratropium) 3 ml Q4H PRN HHN Shortness of Breath 01/23/18 17:30 01/28/18 17:29 Amlodipine Besylate (Norvasc) 5 mg Q12HR ORAL 01/23/18 21:00 02/22/18 20:59 01/24/18 08:21 Atorvastatin Calcium (Lipitor) 10 mg BEDTIME ORAL 01/23/18 21:00 02/22/18 20:59 01/23/18 20:55 Bisacodyl (Dulcolax) 10 mg HSPRN PRN RECTAL Constipation 01/23/18 17:30 02/22/18 17:29 Dextrose (Dextrose 50%) 25 ml STAT PRN IV Hypoglycemia 01/23/18 17:30 02/22/18 17:29 Dextrose (Dextrose 50%) 50 ml STAT PRN IV Hypoglycemia 01/23/18 17:30 02/22/18 17:29 Docusate Sodium (Colace) 100 mg EVERY 12 HOURS ORAL 01/23/18 21:00 02/22/18 20:59 01/24/18 08:21 Gabapentin (Neurontin) 300 mg Q8HR ORAL 01/23/18 22:00 02/22/18 21:59 01/24/18 07:33 Hydromorphone HCl (Dilaudid) 4 mg Q6H PRN ORAL severe pain 01/23/18 17:45 01/30/18 17:44 01/24/18 02:59 Methocarbamol (Robaxin) 750 mg Q8H PRN ORAL muscle spasms 01/23/18 17:45 02/22/18 17:44 01/24/18 03:00 Ondansetron HCl (Zofran) 4 mg Q6H PRN IVP Nausea & Vomiting 01/23/18 17:30 02/22/18 17:29 01/23/18 20:55 Polyethylene Glycol (Miralax) 17 gm HSPRN PRN ORAL Constipation 01/23/18 17:30 02/22/18 17:29 Rivaroxaban (Xarelto) 20 mg QPM@1800 ORAL 01/23/18 20:00 02/22/18 19:59 01/23/18 20:55 Assessment/Plan Problem List: (1) Acute on chronic abd pain (2) Intractable abdominal pain ICD Codes: R10.9 - Unspecified abdominal pain SNOMED: 77234270 (3) SOB (shortness of breath) ICD Codes: R06.02 - Shortness of breath SNOMED: 179965480 (4) Leukopenia ICD Codes: D72.819 - Decreased white blood cell count, unspecified SNOMED: 42097518, 514577780 (5) DM2 (diabetes mellitus, type 2) ICD Codes: E11.9 - Type 2 diabetes mellitus without complications SNOMED: 26272979 (6) HTN (hypertension) ICD Codes: I10 - Essential (primary) hypertension SNOMED: 07812165 (7) HLD (hyperlipidemia) ICD Codes: E78.5 - Hyperlipidemia, unspecified SNOMED: 29914698 (8) Lupus ICD Codes: M32.9 - Lupus SNOMED: 94777265 (9) GERD (gastroesophageal reflux disease) ICD Codes: K21.9 - Gastro-esophageal reflux disease without esophagitis SNOMED: 663098516 (10) DVT (deep venous thrombosis) ICD Codes: I82.409 - DVT (deep venous thrombosis) SNOMED: 853271137 (11) Anemia ICD Codes: D64.9 - Anemia SNOMED: 806091900 Status: stable Assessment/Plan Abd exam currently bengn. Possible pancreatitis flare vs gastritis/duodenitis vs somatization Admit inpt GI, surgery consulted for abd pain eval Check KUB Check lipase, abd Pain control, bowel regimen Pulm eval for shortness of breath CXR w/ atelectasis; encourage IS Pt w/ DM2 (A1C 7.7) SSI for now, consider adding long acting insulin if further control needed. Consider MTF on discharge Heme/onc consulted given leukopenia Psych consulted given depression Cont home meds Supportive care DC pending pain control DVT Prophylaxis: SCD, Eliquis Code Status: Full Hospital Classification Declaration: Based on this initial evaluation, and depending on the patient's clinical course, I anticipate that this patient will require hospitalization for 1-3 days for pain control, abd pain, and close respiratory/hemodynamic monitoring. Disposition: Once the patient is stable to leave the hospital, I anticipate the patient will likely be discharged to the following environment: home with HH vs SNF I spent 70 minutes on this patient's case, and >50% was dedicated to counseling and/or care coordination. Discussed with patient/family, nursing staff, SW/CM, GI, surgery regarding clinical status, treatment course, and disposition planning. Time of note may not reflect time of encounter. Gloria Farah M.D. Jan 24, 2018 09:39
--- NOTE | 2018-01-24 11:15 | Consultation ---
DATE OF CONSULTATION: 01/24/2018 GASTROENTEROLOGY CONSULTATION CONSULTING PHYSICIAN: Bhargav Victoria M.D. CHIEF COMPLAINT: Nausea, vomiting, abdominal pain. HISTORY OF PRESENT ILLNESS: This is a very pleasant 72-year-old female, known to me from prior admissions to here and [facility]. She has history of chronic GERD, chronic constipation, history of anemia, lupus, chronic back pain, admitted to the hospital with one day of severe abdominal pain. PAST MEDICAL HISTORY: 1. History of DVT with PE. 2. Lupus. 3. Degenerative joint disease. 4. Osteoporosis. 5. Chronic back pain. 6. Chronic constipation. 7. Chronic anemia. 8. GERD. ALLERGIES: Amoxicillin, cortisone, ketorolac, penicillin. MEDICATIONS: Please see medication reconciliation list. SOCIAL HISTORY: The patient smokes. Denies any alcohol or drug abuse. FAMILY HISTORY: Noncontributory. REVIEW OF SYSTEMS: A 10-point review of systems was performed and pertinent positives are as in HPI. PHYSICAL EXAMINATION: VITAL SIGNS: Most recent vital signs, temperature 98.1, pulse is 69, respirations 18, and blood pressure 134/60. HEENT: Normocephalic and atraumatic. Sclerae anicteric. NECK: Supple. No evidence of obvious lymphadenopathy. CARDIOVASCULAR: Regular rhythm. Plus S1 and S2. No obvious murmur. LUNGS: Clear to auscultation bilaterally. ABDOMEN: Positive bowel sounds. Soft. Minimal tenderness to palpation in the epigastric area. No rebound. No guarding. No peritoneal sign. EXTREMITIES: No cyanosis, no clubbing, no edema. LABORATORY DATA: White count is 2.3, hemoglobin 12, hematocrit 36, and platelet count 163,000. Chem-7, sodium 144, potassium 4.3, BUN 16, creatinine 1.1, glucose 110. ASSESSMENT AND PLAN: The patient is a 72-year-old female, known to me from prior admissions. The patient was admitted at this time with abdominal pain. I am not sure how much of this is secondary to recent bad events in her life. She states she lost her son. Actually, the son it seems that he was murdered by his roommate, so she is very depressed and sad about that and then I ask her do you think these symptoms are coming from your recent loss and she shakes her head saying yes. There is no alarming sign and symptoms at this time. There is no significant anemia. There is no significant abnormal liver function tests. Exam is also benign, so our plan will be to manage her constipation with MiraLAX and make sure she gets Zofran for p.r.n. nausea. We will also have her on reflux measures, medications. We will examine her on daily basis, review her laboratories on daily basis, and make further recommendation as needed. Bhargav Victoria M.D. DR: Annabelle JOB#: [id number] CC:
[2018-01-24] MEDS ORDERED: NovoLOG Insulin Flexpen SUBQ SCH (11:30)
[2018-01-24 11:50] VITALS: BP 119/59
--- NOTE | 2018-01-24 13:38 | Consultation ---
Consult Note Consult Note CONSULTING PHYSICIAN: Miko Hernández M.D. CHIEF COMPLAINT: Dyspnea. HISTORY OF PRESENT ILLNESS: This is a very pleasant 72-year-old female. She has history of chronic GERD, chronic constipation, history of anemia, lupus, chronic back pain, admitted to the hospital with one day of severe abdominal pain. She has a prior history of DVT and PE as well. PAST MEDICAL HISTORY: 1. History of DVT with PE. 2. Lupus. 3. Degenerative joint disease. 4. Osteoporosis. 5. Chronic back pain. 6. Chronic constipation. 7. Chronic anemia. 8. GERD. ALLERGIES: Amoxicillin, cortisone, ketorolac, penicillin. MEDICATIONS: Please see medication reconciliation list. SOCIAL HISTORY: The patient smokes. Denies any alcohol or drug abuse. FAMILY HISTORY: Noncontributory. REVIEW OF SYSTEMS: A 10-point review of systems was performed and pertinent positives are as in HPI. PHYSICAL EXAMINATION: VITAL SIGNS: Most recent vital signs, temperature 98.1, pulse is 69, respirations 18, and blood pressure 134/60. HEENT: Normocephalic and atraumatic. Sclerae anicteric. NECK: Supple. No evidence of obvious lymphadenopathy. CARDIOVASCULAR: Regular rhythm. Plus S1 and S2. No obvious murmur. LUNGS: Clear to auscultation bilaterally. ABDOMEN: Positive bowel sounds. Soft. Minimal tenderness to palpation in the epigastric area. No rebound. No guarding. No peritoneal sign. EXTREMITIES: No cyanosis, no clubbing, no edema. LABORATORY DATA: White count is 2.3, hemoglobin 12, hematocrit 36, and platelet count 163,000. Chem-7, sodium 144, potassium 4.3, BUN 16, creatinine 1.1, glucose 110. ASSESSMENT AND PLAN: 1. History of DVT with PE. 2. Lupus. 3. Degenerative joint disease. 4. Osteoporosis. 5. Chronic back pain. 6. Chronic constipation. 7. Chronic anemia. 8. GERD. Presently her exam is also benign, and CXR is clear. Will follow No active interventions Tobacco cessation O2 prn Miko Lord MD, MD Jan 24, 2018 13:38
--- NOTE | 2018-01-24 14:15 | Consultation ---
History of Present Illness General Date patient seen: Jan 24, 2018 Chief Complaint: General Complaint Reason for Consultation: abdominal pain Present Illness HPI 72 year old female with multiple medical comorbidities as noted below presented with abdominal pain. states she has history of chronic pancreatitis and abdominal pain for some time now. was doing okay but yesterday began to note more abdominal discomfort, some back pain and associated nausea so she came to ED for evaluation. pain described as 6-8/10 cramping mid abdominal pain. has had similar episodes prior. intermittent constipation. history of DM which she states is controlled with diet and exercise. history of cholecystectomy. surgery called to evaluate for abdominal pain. no f/c. patient seen, chart reviewed, patient examined. Allergies: Coded Allergies: AMOXICILLIN (Verified Allergy, Unknown, RASH, 06/29/14) CORTISONE (Verified Allergy, Unknown, 06/29/14) KETOROLAC (Verified Allergy, Unknown, 06/29/14) PENICILLINS (Verified Allergy, Unknown, 06/29/14) Medication History Scheduled Alendronate Sodium* (Fosamax*), 70 MG ORAL ONCE A WEEK, (Reported) Alprazolam* (Xanax*), 0.25 MG ORAL THREE TIMES A DAY, (Reported) Amlodipine Besylate (Norvasc), 5 MG ORAL BID, (Reported) Atorvastatin Calcium* (Lipitor*), 10 MG ORAL BEDTIME, (Reported) Gabapentin* (Gabapentin*), 300 MG ORAL THREE TIMES A DAY Hydromorphone HCl (Dilaudid), 4 MG ORAL TID, (Reported) Lidocaine (Lidoderm), 1 PATCH TOPIC DAILY Methocarbamol* (Robaxin-750*), 750 MG PO TID Polyethylene Glycol* (Miralax*), 17 GM ORAL DAILY, (Reported) Rivaroxaban (Xarelto*), 20 MG ORAL DAILY, (Reported) Scheduled PRN Ondansetron* (Zofran*), 4 MG ORAL Q6H PRN for Nausea & Vomiting, (Reported) Oxycodone Hcl (Oxycodone Hcl), 60 MG ORAL QHS PRN for For Pain, (Reported) Patient History History Provided By: Patient, Medical Record, PMD Healthcare decision maker Resuscitation status Full Code Advanced Directive on File No Past Medical/Surgical History Past Medical/Surgical History: (1) Low back pain (2) Low back pain (3) Hematuria (4) Anemia (5) Anemia (6) Gastritis (7) Osteoarthritis (8) Syncope (9) Syncope (10) Vertigo (11) Vertigo (12) Chronic pancreatitis (13) UTI (urinary tract infection) (14) DVT (deep venous thrombosis) (15) GERD (gastroesophageal reflux disease) (16) GERD (gastroesophageal reflux disease) (17) Abdominal pain (18) [address] (19) Chronic constipation (20) Lupus (21) Lupus (22) Hilda esophagitis (23) NSTEMI (non-ST elevated myocardial infarction) (24) Knee pain, bilateral (25) Abdominal pain of unknown etiology (26) Abdominal pain of unknown etiology (27) C. difficile colitis (28) Urinary tract infection, E. coli (29) Nausea, vomiting, and diarrhea (30) Nausea, vomiting, and diarrhea (31) Intractable abdominal pain (32) Intractable abdominal pain (33) Bilateral lower extremity pain (34) SOB (shortness of breath) (35) Hyperglycemia (36) Problem (37) Encounter for generalized patient complaints (38) Abdominal pain Review of Systems Constitutional: Reports: weakness; Denies: no symptoms, see HPI, chills, sweats , fever, malaise, other Eye: Denies: no symptoms, see HPI, eye pain, blurred vision, tearing, double vision, nose pain, nose congestion, acuity changes, discharge, other ENT: Denies: no symptoms, see HPI, ear pain, ear discharge, nose pain, nose congestion, throat pain, throat swelling, mouth pain, hearing loss, nasal discharge, other Respiratory: Denies: no symptoms, see HPI, cough, orthopnea, shortness of breath, stridor, wheezing, COLEMAN, sputum, other Cardiovascular: Denies: no symptoms, see HPI, chest pain, edema, palpitations, syncope, PND, other Gastrointestinal: Reports: abdominal pain, constipation, nausea Genitourinary: Denies: no symptoms, see HPI, discharge, dysuria, frequency, hematuria, pain, retention, incontinence, urgency, vag bleed/dc, other Musculoskeletal: Reports: joint pain, muscle pain; Denies: no symptoms, see HPI , back pain, gout, joint swelling, muscle stiffness, other Skin: Denies: no symptoms, see HPI, rash, change in color, change in hair/nails , dryness, lesions, other Psychiatric: Denies: no symptoms, see HPI, prior hx, anxiety, depressed feelings, emotional problems, SI, HI, hallucinations, other Neurological: Denies: no symptoms, see HPI, headache, numbness, paresthesia, seizure, tingling, tremors, focal weakness, syncope, dizziness, other Endocrine: Denies: no symptoms, see HPI, excessive sweating, flushing, intolerance to temperature, increased thirst, increased urine, unexplained weight loss, other Hematologic/Lymphatic: Denies: no symptoms, see HPI, anemia, blood clots, easy bleeding, easy bruising, swollen glands, diathesis, other All Other Systems: negative except mentioned in HPI Physical Exam General Appearance: WD/WN, no apparent distress HEENT: normocephalic, atraumatic, mucous membranes moist Neck: normal inspection Respiratory/Chest: normal breath sounds, no respiratory distress, no accessory muscle use Cardiovascular/Chest: normal rate, regular rhythm Abdomen: normal bowel sounds, soft, no organomegaly, no mass, tender, other - mild discomfort on exam. no peritoneal signs Extremities: normal inspection Skin Exam: warm/dry Neurologic: alert, oriented x 3, responsive Last 24 Hour Vital Signs Date Time Temp Pulse Resp B/P (MAP) Pulse Ox O2 Delivery O2 Flow Rate FiO2 01/24/18 11:50 98.0 66 19 119/59 99 Room Air 98.0 01/24/18 08:21 69 134/60 01/24/18 08:00 64 01/24/18 08:00 98.1 69 18 134/60 97 Room Air 98.1 01/24/18 04:00 97.8 66 20 138/72 100 Room Air 97.8 01/24/18 04:00 69 01/24/18 00:00 73 01/24/18 00:00 98.2 62 20 135/70 100 Room Air 98.2 01/23/18 20:57 60 139/66 01/23/18 20:06 98.0 57 16 153/54 100 Room Air 98.0 01/23/18 19:52 97.7 60 18 139/66 100 Room Air 97.7 01/23/18 19:30 98.0 57 16 153/54 100 Room Air 98.0 01/23/18 17:34 97.9 60 16 146/106 100 Room Air 97.9 01/23/18 17:24 98.0 01/23/18 16:54 98.8 01/23/18 16:40 98.8 01/23/18 16:01 98.8 01/23/18 15:34 98.8 66 16 134/57 100 Room Air 98.8 01/23/18 14:35 98.7 91 17 139/71 97 Room Air 98.8 Intake and Output 01/23/18 01/24/18 19:00 07:00 Intake Total 120 ml Output Total 60 ml Balance 60 ml Intake Oral 120 ml Output Urine Total 60 ml # Voids 1 1 Laboratory Tests Test 01/23/18 15:25 01/23/18 17:35 01/24/18 06:50 White Blood Count 2.8 K/UL (4.8-10.8) L 2.3 K/UL (4.8-10.8) L Red Blood Count 4.50 M/UL (4.20-5.40) 4.19 M/UL (4.20-5.40) L Hemoglobin 12.6 G/DL (12.0-16.0) 12.1 G/DL (12.0-16.0) Hematocrit 38.8 % (37.0-47.0) 36.4 % (37.0-47.0) L Mean Corpuscular Volume 86 FL (80-99) 87 FL (80-99) Mean Corpuscular Hemoglobin 28.0 PG (27.0-31.0) 28.9 PG (27.0-31.0) Mean Corpuscular Hemoglobin Concent 32.4 G/DL (32.0-36.0) 33.2 G/DL (32.0-36.0) Red Cell Distribution Width 12.9 % (11.6-14.8) 13.1 % (11.6-14.8) Platelet Count 162 K/UL (150-450) 163 K/UL (150-450) Mean Platelet Volume 8.1 FL (6.5-10.1) 7.9 FL (6.5-10.1) Neutrophils (%) (Auto) % (45.0-75.0) % (45.0-75.0) Lymphocytes (%) (Auto) % (20.0-45.0) % (20.0-45.0) Monocytes (%) (Auto) % (1.0-10.0) % (1.0-10.0) Eosinophils (%) (Auto) % (0.0-3.0) % (0.0-3.0) Basophils (%) (Auto) % (0.0-2.0) % (0.0-2.0) Differential Total Cells Counted 100 100 Neutrophils % (Manual) 60 % (45-75) 45 % (45-75) Lymphocytes % (Manual) 24 % (20-45) 42 % (20-45) Monocytes % (Manual) 14 % (1-10) H 11 % (1-10) H Eosinophils % (Manual) 1 % (0-3) 2 % (0-3) Basophils % (Manual) 0 % (0-2) 0 % (0-2) Band Neutrophils 1 % (0-8) 0 % (0-8) Platelet Estimate Adequate Adequate Platelet Morphology Normal Normal Red Blood Cell Morphology Normal Prothrombin Time 10.2 SEC (9.30-11.50) Prothromb Time International Ratio 1.0 (0.9-1.1) Activated Partial Thromboplast Time 55 SEC (23-33) H Urine Color Pale yellow Urine Appearance Clear Urine pH 7 (4.5-8.0) Urine Specific [place] 1.010 (1.005-1.035) Urine Protein 1+ (NEGATIVE) H Urine Glucose (UA) 3+ (NEGATIVE) H Urine Ketones Negative (NEGATIVE) Urine Occult Blood Negative (NEGATIVE) Urine Nitrite Negative (NEGATIVE) Urine Bilirubin Negative (NEGATIVE) Urine Urobilinogen Normal MG/DL (0.0-1.0) Urine Leukocyte Esterase 3+ (NEGATIVE) H Urine RBC 0-2 /HPF (0 - 2) Urine WBC 2-4 /HPF (0 - 2) Urine Squamous Epithelial Cells Few /LPF (NONE/OCC) Urine Amorphous Sediment Few /LPF (NONE) H Urine Bacteria Few /HPF (NONE) Sodium Level 141 MMOL/L (136-145) 144 MMOL/L (136-145) Potassium Level 4.2 MMOL/L (3.5-5.1) 4.3 MMOL/L (3.5-5.1) Chloride Level 107 MMOL/L (98-107) 109 MMOL/L (98-107) H Carbon Dioxide Level 25 MMOL/L (21-32) 31 MMOL/L (21-32) Anion Gap 9 mmol/L (5-15) 4 mmol/L (5-15) L Blood Urea Nitrogen 13 mg/dL (7-18) 16 mg/dL (7-18) Creatinine 1.1 MG/DL (0.55-1.30) 1.1 MG/DL (0.55-1.30) Estimat Glomerular Filtration Rate mL/min (>60) mL/min (>60) Glucose Level 174 MG/DL (74-106) H 110 MG/DL (74-106) H Lactic Acid Level 0.90 mmol/L (0.4-2.0) Calcium Level 7.8 MG/DL (8.5-10.1) L 8.2 MG/DL (8.5-10.1) L Total Bilirubin 0.3 MG/DL (0.2-1.0) 0.4 MG/DL (0.2-1.0) Aspartate Amino Transf (AST/SGOT) 27 U/L (15-37) 22 U/L (15-37) Alanine Aminotransferase (ALT/SGPT) 20 U/L (12-78) 23 U/L (12-78) Alkaline Phosphatase 97 U/L (46-116) 91 U/L (46-116) Total Creatine Kinase 58 U/L (26-308) Creatine Kinase MB < 0.5 NG/ML (0.0-3.6) Creatine Kinase MB Relative Index 0.8 Troponin I 0.000 ng/mL (0.000-0.056) Total Protein 7.5 G/DL (6.4-8.2) 7.2 G/DL (6.4-8.2) Albumin 3.3 G/DL (3.4-5.0) L 3.2 G/DL (3.4-5.0) L Globulin 4.2 g/dL 4.0 g/dL Albumin/Globulin Ratio 0.8 (1.0-2.7) L 0.8 (1.0-2.7) L Pro-B-Type Natriuretic Peptide 24 pg/mL (0-125) Hypochromasia 1+ Hemoglobin A1c 7.7 % (4.3-6.0) H Magnesium Level 2.2 MG/DL (1.8-2.4) Thyroid Stimulating Hormone (TSH) 0.888 uiU/mL (0.358-3.740) Height (Feet): 5 Height (Inches): 5.00 Weight (Pounds): 135 Medications Current Medications Medications (Trade) Dose Ordered Sig/Alexys Route PRN Reason Start Time Stop Time Status Last Admin Dose Admin Acetaminophen (Tylenol) 650 mg Q4H PRN ORAL Mild Pain (Pain Scale 1-3) 01/23/18 17:30 02/22/18 17:29 Acetaminophen (Tylenol) 650 mg Q4H PRN ORAL fever 01/23/18 17:30 02/22/18 17:29 Acetaminophen (Tylenol) 650 mg Q4H PRN RECTAL Mild Pain (Pain Scale 1-3) 01/23/18 17:30 02/22/18 17:29 Acetaminophen (Tylenol) 650 mg Q4H PRN RECTAL fever 01/23/18 17:30 02/22/18 17:29 Albuterol/ Ipratropium (Albuterol/ Ipratropium) 3 ml Q4H PRN HHN Shortness of Breath 01/23/18 17:30 01/28/18 17:29 Amlodipine Besylate (Norvasc) 5 mg Q12HR ORAL 01/23/18 21:00 02/22/18 20:59 01/24/18 08:21 Atorvastatin Calcium (Lipitor) 10 mg BEDTIME ORAL 01/23/18 21:00 02/22/18 20:59 01/23/18 20:55 Bisacodyl (Dulcolax) 10 mg HSPRN PRN RECTAL Constipation 01/23/18 17:30 02/22/18 17:29 Chlorhexidine Gluconate (Merari-Hex 2%) 1 applic DAILY@2000 TOPIC 01/24/18 20:00 02/23/18 19:59 Dextrose (Dextrose 50%) 25 ml STAT PRN IV Hypoglycemia 01/23/18 17:30 02/22/18 17:29 Dextrose (Dextrose 50%) 25 ml STAT PRN IV Hypoglycemia 01/24/18 10:30 02/23/18 10:29 Dextrose (Dextrose 50%) 50 ml STAT PRN IV Hypoglycemia 01/23/18 17:30 02/22/18 17:29 Dextrose (Dextrose 50%) 50 ml STAT PRN IV Hypoglycemia 01/24/18 10:30 02/23/18 10:29 Docusate Sodium (Colace) 100 mg EVERY 12 HOURS ORAL 01/23/18 21:00 02/22/18 20:59 01/24/18 08:21 Gabapentin (Neurontin) 300 mg Q8HR ORAL 01/23/18 22:00 02/22/18 21:59 01/24/18 13:19 Hydromorphone HCl (Dilaudid) 4 mg Q6H PRN ORAL severe pain 01/23/18 17:45 01/30/18 17:44 01/24/18 12:11 Insulin Aspart (NovoLOG) BEFORE MEALS AND HS SUBQ 01/24/18 11:30 02/23/18 11:29 01/24/18 11:31 Methocarbamol (Robaxin) 750 mg Q8H PRN ORAL muscle spasms 01/23/18 17:45 02/22/18 17:44 01/24/18 03:00 Ondansetron HCl (Zofran) 4 mg Q6H PRN IVP Nausea & Vomiting 01/23/18 17:30 02/22/18 17:29 01/24/18 12:11 Polyethylene Glycol (Miralax) 17 gm HSPRN PRN ORAL Constipation 01/23/18 17:30 02/22/18 17:29 Rivaroxaban (Xarelto) 20 mg QPM@1800 ORAL 01/23/18 20:00 02/22/18 19:59 01/23/18 20:55 Assessment/Plan Problem List: (1) Abdominal pain Assessment & Plan: 72F with abdominal pain. mid abdomen/epigastric cramping. history of prior episodes which resolve without intervention. currently pain improved. +nausea intermittent, no emesis. labs reviewed. exam fairly benign. -no acute surgical intervention needed at this time. -diet as tolerated -will obtain lipase/amylase given history of pancreatitis -kub. -thank you for this consultation. will follow with recs. Qualifiers: Qualified Codes: R10.13 - Epigastric pain Status: stable Demarcus Ramirez Jan 24, 2018 14:15
[2018-01-24] MEDS ORDERED: TraZODone 50mg tab ORAL PRN (14:30)
[2018-01-24 16:00] VITALS: BP 129/57
[2018-01-24] MEDS ORDERED: Albuterol/Ipratropium 3ml neb HHN PRN (16:30)
[2018-01-24] MEDS ORDERED: Acetaminophen 650 MG SUPP RECTAL PRN ×2 (16:30)
[2018-01-24] MEDS: NovoLOG Insulin Flexpen SUBQ SCH ×2 (16:51→20:25)
[2018-01-24] MEDS: Methocarbamol 750mg tab ORAL PRN (17:09)
[2018-01-24] MEDS: Xarelto 10mg tab ORAL SCH (17:10)
[2018-01-24] MEDS ORDERED: Dyna-Hex 2% Top Sol 2oz TOPIC SCH (20:00)
[2018-01-24 20:19] VITALS: BP 147/100
[2018-01-24] MEDS: Dyna-Hex 2% Top Sol 2oz TOPIC SCH (20:19)
[2018-01-24] MEDS ORDERED: Miralax 17gm pkt ORAL PRN (21:00)
--- NOTE | 2018-01-24 22:00 | Consultation ---
DATE OF CONSULTATION: 01/24/2018 NOTE: POOR AUDIO HEMATOLOGY/ONCOLOGY CONSULTATION CONSULTING PHYSICIAN: Adolfo Cardona M.D. REQUESTING PHYSICIAN: Neville Hendricks M.D.; Gloria Farah M.D. REASON FOR CONSULTATION: Evaluation of leukopenia. IDENTIFYING DATA: Dear Dr. Gloria Farah and Dr. Hendricks, The patient is a pleasant 72-year-old female with past medical history significant for GERD, chronic constipation, history of chronic anemia, DVT history, PE, history of lupus, at this time she presents to the hospital with abdominal pain, has been ongoing for some time, has a history of chronic pancreatitis, history of leukopenia. Hematology Service was consulted for leukopenia -03/12, intermittent constipation, history of diabetes , and history of cholecystectomy. Surgery consulted as well. PAST MEDICAL HISTORY: Chronic constipation and abdominal pain. PAST SURGICAL HISTORY: As noted above. ALLERGIES: . REVIEW OF SYSTEMS: CONSTITUTIONAL: No evidence of fevers, some nausea and vomiting reported. SKIN: No rashes, bumps, or itching. HEENT: No headache, hearing or vision changes. BREASTS: No lumps, pain, or discharge. PULMONARY: No cough, sputum, or shortness of breath. GASTROINTESTINAL: No nausea, vomiting, or diarrhea. GENITOURINARY: No dysuria, frequency, or urgency. MUSCULOSKELETAL: No muscle, joint swelling, or trauma. PHYSICAL EXAMINATION: VITAL SIGNS: Reviewed. GENERAL: No distress. LUNGS: Decreased breath sounds. CARDIOVASCULAR: Regular rate. No S3 or S4. ABDOMEN: Soft, nontender, and nondistended. EXTREMITIES: There is 1+ edema. LABORATORY AND DIAGNOSTIC DATA: WBC 2.3, hemoglobin 12.1, hematocrit 36, and platelet count 163,000. Imaging, reviewed from prior. CAT scan of the abdomen and pelvis reviewed, cholecystectomy history noted, hysterectomy, moderate hiatal hernia noted. CTA of the chest noted, no evidence of pulmonary embolism from recent CTA, multiple . Chest x-ray reviewed. No evidence of . Lifetime labs reviewed. RENETTA positive. positive. INR . ASSESSMENT AND RECOMMENDATION: 1. Leukopenia. Obtain hepatitis panel, HIV, and ultrasound of the abdomen. It is likely related to hepatic congestion with splenomegaly. We need to confirm this with ultrasound. 2. Anemia due to underlying chronic disease. Closely monitor. 3. Deep venous thrombosis and pulmonary embolism history, currently resolved. Continue anticoagulation with Xarelto. 4. Abdominal pain, history of recurrent episodes, history of chronic pancreatitis with nausea. Obtain amylase and lipase. 5. Degenerative joint disease. 6. Osteoporosis. 7. Chronic back pain. 8. Gastroesophageal reflux disease. I appreciate the consultation. Adolfo Cardona M.D. DR: LAY JOB#: [id number] CC:
[2018-01-24] MEDS: TraZODone 50mg tab ORAL PRN (22:26)
[2018-01-25 00:48] VITALS: BP 135/50
[2018-01-25 04:11] VITALS: BP 151/51
[2018-01-25] MEDS: NovoLOG Insulin Flexpen SUBQ SCH ×4 (05:26→20:16)
[2018-01-25 06:17] LABS: BASOPHILS % (AUTO) 0.4 % (0.0-2.0); EOSINOPHILS % (AUTO) 0.5 % (0.0-3.0); HEMOGLOBIN 12.6 G/DL (12.0-16.0); LYMPHOCYTES % (AUTO) 24.8 % (20.0-45.0); MEAN CORPUSCULAR VOLUME 87 FL (80-99); MONOCYTES % (AUTO) 12.4 % (1.0-10.0); PLATELET COUNT 155 K/UL (150-450); RED BLOOD COUNT 4.37 M/UL (4.20-5.40); RED CELL DISTRIBUTION WIDTH 13.1 % (11.6-14.8); WHITE BLOOD COUNT 3.7 K/UL (4.8-10.8)
[2018-01-25 06:36] LABS: ANION GAP 5 mmol/L (5-15); BLOOD UREA NITROGEN 14 mg/dL (7-18); CALCIUM 8.9 MG/DL (8.5-10.1); CARBON DIOXIDE 29 MMOL/L (21-32); CHLORIDE 108 MMOL/L (98-107); CREATININE 1.1 MG/DL (0.55-1.30); POTASSIUM 4.1 MMOL/L (3.5-5.1); SODIUM 142 MMOL/L (136-145)
[2018-01-25] MEDS: HYDROmorphone 4mg tab ORAL PRN ×3 (06:41→20:15)
[2018-01-25 07:01] LABS: AMYLASE 102 U/L (25-115)
[2018-01-25 08:00] VITALS: BP 146/60
--- NOTE | 2018-01-25 09:57 | Pulmonology Progress Note ---
Assessment/Plan Assessment/Plan ASSESSMENT AND PLAN: 1. History of DVT with PE. 2. Lupus. 3. Degenerative joint disease. 4. Osteoporosis. 5. Chronic back pain. 6. Chronic constipation. 7. Chronic anemia. 8. GERD. Presently her exam is also benign, and CXR is clear. Will follow No active interventions Tobacco cessation O2 prn Subjective Interval Events: None Constitutional: Reports: no symptoms HEENT: Repors: no symptoms Respiratory: Reports: no symptoms Cardiovascular: Reports: no symptoms Gastrointestinal/Abdominal: Reports: no symptoms Allergies: Coded Allergies: AMOXICILLIN (Verified Allergy, Unknown, RASH, 06/29/14) CORTISONE (Verified Allergy, Unknown, 06/29/14) KETOROLAC (Verified Allergy, Unknown, 06/29/14) PENICILLINS (Verified Allergy, Unknown, 06/29/14) Objective Last 24 Hour Vital Signs Date Time Temp Pulse Resp B/P (MAP) Pulse Ox O2 Delivery O2 Flow Rate FiO2 01/25/18 08:00 98.1 58 18 146/60 98 Room Air 98.1 01/25/18 07:40 98.1 01/25/18 04:11 98.2 56 19 151/51 98 98.2 01/25/18 00:48 98.3 64 19 135/50 97 98.3 01/25/18 00:16 98 Room Air 21 01/25/18 00:13 70 16 Room Air 21 01/24/18 20:20 67 147/100 01/24/18 20:19 98.1 67 18 147/100 100 98.1 01/24/18 18:32 98.2 01/24/18 16:00 98.2 67 18 129/57 98 Room Air 98.2 01/24/18 11:50 98.0 66 19 119/59 99 Room Air 98.0 Intake and Output 01/24/18 01/25/18 19:00 07:00 Intake Total 120 ml 350 ml Balance 120 ml 350 ml Intake Oral 120 ml 350 ml # Voids 1 1 General Appearance: WD/WN HEENT: normocephalic Respiratory/Chest: chest wall non-tender Cardiovascular: normal peripheral pulses Abdomen: normal bowel sounds Microbiology Date/Time Source Procedure Growth Status 01/23/18 15:25 Blood Blood Culture - Preliminary NO GROWTH AFTER 24 HOURS Resulted 01/23/18 15:10 Blood Blood Culture - Preliminary NO GROWTH AFTER 24 HOURS Resulted Laboratory Tests 01/25/18 05:10: White Blood Count 3.7#L, Red Blood Count 4.37, Hemoglobin 12.6, Hematocrit 38.0 , Mean Corpuscular Volume 87, Mean Corpuscular Hemoglobin 28.9, Mean Corpuscular Hemoglobin Concent 33.3, Red Cell Distribution Width 13.1, Platelet Count 155, Mean Platelet Volume 7.7, Neutrophils (%) (Auto) 62.0, Lymphocytes (% ) (Auto) 24.8, Monocytes (%) (Auto) 12.4H, Eosinophils (%) (Auto) 0.5, Basophils (%) (Auto) 0.4, Sodium Level 142, Potassium Level 4.1, Chloride Level 108H, Carbon Dioxide Level 29, Anion Gap 5, Blood Urea Nitrogen 14, Creatinine 1.1, Estimat Glomerular Filtration Rate , Glucose Level 98, Calcium Level 8.9, Magnesium Level 2.1, Amylase Level 102, Lipase 152 Current Medications Medications (Trade) Dose Ordered Sig/Alexys Route PRN Reason Start Time Stop Time Status Last Admin Dose Admin Acetaminophen (Tylenol) 650 mg Q4H PRN ORAL Mild Pain (Pain Scale 1-3) 01/24/18 16:30 02/22/18 16:29 Acetaminophen (Tylenol) 650 mg Q4H PRN ORAL fever 01/24/18 16:30 02/22/18 16:29 Acetaminophen (Tylenol) 650 mg Q4H PRN RECTAL Mild Pain (Pain Scale 1-3) 01/24/18 16:30 02/22/18 16:29 Acetaminophen (Tylenol) 650 mg Q4H PRN RECTAL fever 01/24/18 16:30 02/22/18 16:29 Albuterol/ Ipratropium (Albuterol/ Ipratropium) 3 ml Q4H PRN HHN Shortness of Breath 01/24/18 16:30 01/28/18 16:29 Amlodipine Besylate (Norvasc) 5 mg Q12HR ORAL 01/24/18 21:00 02/22/18 20:59 01/24/18 20:20 Atorvastatin Calcium (Lipitor) 10 mg BEDTIME ORAL 01/24/18 21:00 02/22/18 20:59 01/24/18 20:20 Bisacodyl (Dulcolax) 10 mg HSPRN PRN RECTAL Constipation 01/24/18 21:00 02/22/18 20:59 Chlorhexidine Gluconate (Merari-Hex 2%) 1 applic DAILY@2000 TOPIC 01/24/18 20:00 02/23/18 19:59 01/24/18 20:19 Dextrose (Dextrose 50%) 25 ml STAT PRN IV Hypoglycemia 01/24/18 16:30 02/22/18 16:29 Dextrose (Dextrose 50%) 50 ml STAT PRN IV Hypoglycemia 01/24/18 16:30 02/22/18 16:29 Docusate Sodium (Colace) 100 mg EVERY 12 HOURS ORAL 01/24/18 21:00 02/22/18 20:59 01/24/18 20:20 Gabapentin (Neurontin) 300 mg Q8HR ORAL 01/24/18 22:00 02/22/18 21:59 01/25/18 06:40 Hydromorphone HCl (Dilaudid) 4 mg Q6H PRN ORAL Severe Pain (Pain Scale 7-10) 01/24/18 18:11 01/30/18 18:10 01/25/18 06:41 Insulin Aspart (NovoLOG) BEFORE MEALS AND HS SUBQ 01/24/18 16:30 02/23/18 11:29 01/24/18 20:25 Methocarbamol (Robaxin) 750 mg Q8H PRN ORAL muscle spasms 01/24/18 16:30 02/22/18 16:29 01/24/18 17:09 Ondansetron HCl (Zofran) 4 mg Q6H PRN IVP Nausea & Vomiting 01/24/18 18:11 02/22/18 18:10 Polyethylene Glycol (Miralax) 17 gm HSPRN PRN ORAL Constipation 01/24/18 21:00 02/22/18 20:59 01/24/18 21:37 Rivaroxaban (Xarelto) 20 mg QPM@1800 ORAL 01/24/18 18:00 02/22/18 19:59 01/24/18 17:10 Trazodone HCl (Desyrel) 50 mg BEDTIME PRN ORAL INSOMNIA 01/24/18 21:00 02/23/18 14:29 01/24/18 22:26 Miko Hernández MD Jan 25, 2018 09:57
--- NOTE | 2018-01-25 10:24 | GI Progress Note ---
Assessment/Plan Problems: (1) Acute on chronic abd pain (2) DM2 (diabetes mellitus, type 2) ICD Codes: E11.9 - Type 2 diabetes mellitus without complications SNOMED: 09672214 (3) Abdominal pain Qualifiers: Qualified Codes: R10.13 - Epigastric pain (4) Chronic constipation ICD Codes: K59.09 - Other constipation SNOMED: 451826069 (5) Anemia ICD Codes: D64.9 - Anemia, unspecified SNOMED: 261730002 Status: stable Status Narrative Discussed with Dr. Victoria. Assessment/Plan no anemia symptomatic treatment bowel regime >> colace + miralax, add Dulcolax prn zofran prn ppi PT evaluation fu labs outpatient colonoscopy The patient was seen and examined at bedside and all new and available data was reviewed in the patients chart. I agree with the above findings, impression and plan. (Patient seen earlier today. Signature stamp does not reflect patient encounter time.). - Bhargav Victoria MD Subjective Subjective abdominal pain constipated, no BM since admission x 2 days Objective Last 24 Hour Vital Signs Date Time Temp Pulse Resp B/P (MAP) Pulse Ox O2 Delivery O2 Flow Rate FiO2 01/25/18 08:00 98.1 58 18 146/60 98 Room Air 98.1 01/25/18 07:40 98.1 01/25/18 04:11 98.2 56 19 151/51 98 98.2 01/25/18 00:48 98.3 64 19 135/50 97 98.3 01/25/18 00:16 98 Room Air 21 01/25/18 00:13 70 16 Room Air 21 01/24/18 20:20 67 147/100 01/24/18 20:19 98.1 67 18 147/100 100 98.1 01/24/18 18:32 98.2 01/24/18 16:00 98.2 67 18 129/57 98 Room Air 98.2 01/24/18 11:50 98.0 66 19 119/59 99 Room Air 98.0 Intake and Output 01/24/18 01/25/18 19:00 07:00 Intake Total 120 ml 350 ml Balance 120 ml 350 ml Intake Oral 120 ml 350 ml # Voids 1 1 Laboratory Tests Test 01/25/18 05:10 White Blood Count 3.7 K/UL (4.8-10.8) #L Red Blood Count 4.37 M/UL (4.20-5.40) Hemoglobin 12.6 G/DL (12.0-16.0) Hematocrit 38.0 % (37.0-47.0) Mean Corpuscular Volume 87 FL (80-99) Mean Corpuscular Hemoglobin 28.9 PG (27.0-31.0) Mean Corpuscular Hemoglobin Concent 33.3 G/DL (32.0-36.0) Red Cell Distribution Width 13.1 % (11.6-14.8) Platelet Count 155 K/UL (150-450) Mean Platelet Volume 7.7 FL (6.5-10.1) Neutrophils (%) (Auto) 62.0 % (45.0-75.0) Lymphocytes (%) (Auto) 24.8 % (20.0-45.0) Monocytes (%) (Auto) 12.4 % (1.0-10.0) H Eosinophils (%) (Auto) 0.5 % (0.0-3.0) Basophils (%) (Auto) 0.4 % (0.0-2.0) Sodium Level 142 MMOL/L (136-145) Potassium Level 4.1 MMOL/L (3.5-5.1) Chloride Level 108 MMOL/L (98-107) H Carbon Dioxide Level 29 MMOL/L (21-32) Anion Gap 5 mmol/L (5-15) Blood Urea Nitrogen 14 mg/dL (7-18) Creatinine 1.1 MG/DL (0.55-1.30) Estimat Glomerular Filtration Rate mL/min (>60) Glucose Level 98 MG/DL (74-106) Calcium Level 8.9 MG/DL (8.5-10.1) Magnesium Level 2.1 MG/DL (1.8-2.4) Amylase Level 102 U/L (25-115) Lipase 152 U/L (73-393) Height (Feet): 5 Height (Inches): 5.00 Weight (Pounds): 135 General Appearance: WD/WN, no apparent distress, alert Cardiovascular: normal rate Respiratory/Chest: normal breath sounds, no respiratory distress Abdominal Exam: normal bowel sounds, non tender, soft Extremities: normal range of motion, non-tender Henry,Yenifer-Lawrence [employer]AINABLE [employer]CHITECT Jan 25, 2018 10:24
[2018-01-25] MEDS: Docusate 100mg cap ORAL SCH ×2 (10:35→20:15)
--- NOTE | 2018-01-25 10:40 | Diagnostic Imaging Report ---
Indication: Abdominal pain Technique: Supine view of the abdomen Comparison: 12/05/2009 Findings: Spinal fusion hardware, a spinal stimulator, and cholecystectomy and right lower quadrant surgical clips are again demonstrated. Bowel gas pattern is unremarkable. No unusual masses or calcifications Impression: No acute process
[2018-01-25] MEDS: Methocarbamol 750mg tab ORAL PRN (10:41)
[2018-01-25] MEDS ORDERED: Bisacodyl EC 5mg tab ORAL SCH (10:45)
[2018-01-25 12:00] VITALS: BP 125/60
--- NOTE | 2018-01-25 12:52 | General Surgery Progress Note ---
General Surgery-Progress Note Subjective Symptoms: improved, pain absent, tolerating diet, passing flatus Additional Comments doing well. no acute events. Objective Last 24 Hour Vital Signs Date Time Temp Pulse Resp B/P (MAP) Pulse Ox O2 Delivery O2 Flow Rate FiO2 01/25/18 12:00 98.0 65 20 125/60 99 Room Air 98.0 01/25/18 10:35 58 146/60 01/25/18 08:37 99 Room Air 21 01/25/18 08:37 Room Air 21 01/25/18 08:37 79 20 Room Air 21 01/25/18 08:00 98.1 58 18 146/60 98 Room Air 98.1 01/25/18 07:40 98.1 01/25/18 04:11 98.2 56 19 151/51 98 98.2 01/25/18 00:48 98.3 64 19 135/50 97 98.3 01/25/18 00:16 98 Room Air 21 01/25/18 00:13 70 16 Room Air 21 01/24/18 20:20 67 147/100 01/24/18 20:19 98.1 67 18 147/100 100 98.1 01/24/18 18:32 98.2 01/24/18 16:00 98.2 67 18 129/57 98 Room Air 98.2 I&O Intake and Output 01/24/18 01/25/18 19:00 07:00 Intake Total 120 ml 350 ml Balance 120 ml 350 ml Intake Oral 120 ml 350 ml # Voids 1 1 Drains: none Cardiovascular: RSR Respiratory: clear Abdomen: soft, flat, non-tender, present bowel sounds Extremities: no edema, no tenderness Laboratory Tests Test 01/25/18 05:10 White Blood Count 3.7 K/UL (4.8-10.8) #L Red Blood Count 4.37 M/UL (4.20-5.40) Hemoglobin 12.6 G/DL (12.0-16.0) Hematocrit 38.0 % (37.0-47.0) Mean Corpuscular Volume 87 FL (80-99) Mean Corpuscular Hemoglobin 28.9 PG (27.0-31.0) Mean Corpuscular Hemoglobin Concent 33.3 G/DL (32.0-36.0) Red Cell Distribution Width 13.1 % (11.6-14.8) Platelet Count 155 K/UL (150-450) Mean Platelet Volume 7.7 FL (6.5-10.1) Neutrophils (%) (Auto) 62.0 % (45.0-75.0) Lymphocytes (%) (Auto) 24.8 % (20.0-45.0) Monocytes (%) (Auto) 12.4 % (1.0-10.0) H Eosinophils (%) (Auto) 0.5 % (0.0-3.0) Basophils (%) (Auto) 0.4 % (0.0-2.0) Sodium Level 142 MMOL/L (136-145) Potassium Level 4.1 MMOL/L (3.5-5.1) Chloride Level 108 MMOL/L (98-107) H Carbon Dioxide Level 29 MMOL/L (21-32) Anion Gap 5 mmol/L (5-15) Blood Urea Nitrogen 14 mg/dL (7-18) Creatinine 1.1 MG/DL (0.55-1.30) Estimat Glomerular Filtration Rate mL/min (>60) Glucose Level 98 MG/DL (74-106) Calcium Level 8.9 MG/DL (8.5-10.1) Magnesium Level 2.1 MG/DL (1.8-2.4) Amylase Level 102 U/L (25-115) Lipase 152 U/L (73-393) Plan Problems: (1) Abdominal pain Assessment & Plan: 72F with abdominal pain. mid abdomen/epigastric cramping. history of prior episodes which resolve without intervention. currently pain improved. +nausea intermittent, no emesis. labs reviewed. exam fairly benign. KUB okay. labs okay -no acute surgical intervention needed at this time. -diet as tolerated -thank you for this consultation. will follow with recs. Demarcus Ramirez Jan 25, 2018 12:52
--- NOTE | 2018-01-25 13:59 | General Progress Note ---
Assessment/Plan Problem List: (1) Acute on chronic abd pain (2) DM2 (diabetes mellitus, type 2) ICD Codes: E11.9 - Type 2 diabetes mellitus without complications SNOMED: 91780975 (3) Smoker ICD Codes: F17.200 - Nicotine dependence, unspecified, uncomplicated SNOMED: 35033574 (4) Chronic pain ICD Codes: G89.29 - Chronic pain SNOMED: 98123162 (5) Leukopenia ICD Codes: D72.819 - Decreased white blood cell count, unspecified SNOMED: 52836639, 766211759 (6) HLD (hyperlipidemia) ICD Codes: E78.5 - Hyperlipidemia, unspecified SNOMED: 53283017 (7) HTN (hypertension) ICD Codes: I10 - Essential (primary) hypertension SNOMED: 17471993 (8) Intractable abdominal pain ICD Codes: R10.9 - Unspecified abdominal pain SNOMED: 93451681 (9) lives on own (10) Lupus ICD Codes: M32.9 - Systemic lupus erythematosus, unspecified SNOMED: 31985487 (11) GERD (gastroesophageal reflux disease) ICD Codes: K21.9 - Gastro-esophageal reflux disease without esophagitis SNOMED: 154497782 (12) Low back pain ICD Codes: M54.5 - Low back pain SNOMED: 356232040 (13) SOB (shortness of breath) ICD Codes: R06.02 - Shortness of breath SNOMED: 014922592 (14) Chronic pancreatitis ICD Codes: K86.1 - Other chronic pancreatitis SNOMED: 939857369 Status: stable, progressing Assessment/Plan Abd exam currently soft but TTP. Possible pancreatitis flare vs gastritis/ duodenitis vs somatization GI, surgery consulted for abd pain eval. No surgical interventions. Appreciate rec's KUB unremarkable Check lipase, amylase - wnl Pain control, bowel regimen Pulm eval for shortness of breath - currently resolved. Appreciate rec's CXR w/ atelectasis; encourage IS Pt w/ DM2 (A1C 7.7) SSI for now, consider adding long acting insulin if further control needed. Consider MTF on discharge Heme/onc consulted given leukopenia Psych consulted given depression Cont home meds Supportive care DC pending pain control DVT Prophylaxis: SCD, Eliquis Code Status: Full Hospital Classification Declaration: Based on this initial evaluation, and depending on the patient's clinical course, I anticipate that this patient will require hospitalization for 1-3 days for pain control, abd pain, and close respiratory/hemodynamic monitoring. Disposition: Once the patient is stable to leave the hospital, I anticipate the patient will likely be discharged to the following environment: home with HH vs SNF I spent 30 minutes on this patient's case, and >50% was dedicated to counseling and/or care coordination. Discussed with patient/family, nursing staff, SW/CM, GI, surgery regarding clinical status, treatment course, and disposition planning. Time of note may not reflect time of encounter. Subjective Date patient seen: Jan 25, 2018 Time patient seen: 13:53 Allergies: Coded Allergies: AMOXICILLIN (Verified Allergy, Unknown, RASH, 06/29/14) CORTISONE (Verified Allergy, Unknown, 06/29/14) KETOROLAC (Verified Allergy, Unknown, 06/29/14) PENICILLINS (Verified Allergy, Unknown, 06/29/14) Subjective seen by GI and general surgery with no further suggestions/interventions. KUB unremarkable SOB resolved. CXR with no acute process. seen by pulm continues to c/o abdominal pain. tolerated diet today with intermittent nausea but no emesis AF, HDS Objective Last 24 Hour Vital Signs Date Time Temp Pulse Resp B/P (MAP) Pulse Ox O2 Delivery O2 Flow Rate FiO2 01/25/18 13:43 98.0 01/25/18 12:00 98.0 65 20 125/60 99 Room Air 98.0 01/25/18 10:35 58 146/60 01/25/18 08:37 99 Room Air 21 01/25/18 08:37 Room Air 21 01/25/18 08:37 79 20 Room Air 21 01/25/18 08:00 98.1 58 18 146/60 98 Room Air 98.1 01/25/18 07:40 98.1 01/25/18 04:11 98.2 56 19 151/51 98 98.2 01/25/18 00:48 98.3 64 19 135/50 97 98.3 01/25/18 00:16 98 Room Air 21 01/25/18 00:13 70 16 Room Air 21 01/24/18 20:20 67 147/100 01/24/18 20:19 98.1 67 18 147/100 100 98.1 01/24/18 18:32 98.2 01/24/18 16:00 98.2 67 18 129/57 98 Room Air 98.2 Intake and Output 01/24/18 01/25/18 19:00 07:00 Intake Total 120 ml 350 ml Balance 120 ml 350 ml Intake Oral 120 ml 350 ml # Voids 1 1 Laboratory Tests 01/25/18 05:10: White Blood Count 3.7#L, Red Blood Count 4.37, Hemoglobin 12.6, Hematocrit 38.0 , Mean Corpuscular Volume 87, Mean Corpuscular Hemoglobin 28.9, Mean Corpuscular Hemoglobin Concent 33.3, Red Cell Distribution Width 13.1, Platelet Count 155, Mean Platelet Volume 7.7, Neutrophils (%) (Auto) 62.0, Lymphocytes (% ) (Auto) 24.8, Monocytes (%) (Auto) 12.4H, Eosinophils (%) (Auto) 0.5, Basophils (%) (Auto) 0.4, Sodium Level 142, Potassium Level 4.1, Chloride Level 108H, Carbon Dioxide Level 29, Anion Gap 5, Blood Urea Nitrogen 14, Creatinine 1.1, Estimat Glomerular Filtration Rate , Glucose Level 98, Calcium Level 8.9, Magnesium Level 2.1, Amylase Level 102, Lipase 152 Height (Feet): 5 Height (Inches): 5.00 Weight (Pounds): 135 General Appearance: alert, mild distress EENT: PERRL/EOMI, normal ENT inspection Neck: non-tender, normal alignment, supple Cardiovascular: normal peripheral pulses, normal rate, regular rhythm Respiratory/Chest: chest wall non-tender, lungs clear, normal breath sounds Abdomen: normal bowel sounds, soft, tender Pelvis: normal external exam Extremities: normal range of motion, non-tender 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
--- NOTE | 2018-01-25 14:59 | General Progress Note ---
Assessment/Plan Status: stable Assessment/Plan # Leukopenia, likely related to hepatic congestion with splenomegaly. --> hepatitis panel, HIV, and ultrasound of the abdomen pending --> cont abx w/ ID service # Anemia due to underlying chronic disease. --> Closely monitor. --> anemia w/u reviewed. Will trend daily. --> hgb goal >7 # Deep venous thrombosis and pulmonary embolism history, --> currently resolved. --> Continue anticoagulation with Xarelto. # Abdominal pain, history of recurrent episodes, history of chronic pancreatitis with nausea. --> 01/25 abdomen xr shows no acute process --> amylase 102, lipase 152. Within normal range # Degenerative joint disease. # Osteoporosis. # Chronic back pain. # Gastroesophageal reflux disease. Subjective Date patient seen: Jan 25, 2018 Gastrointestinal/Abdominal: Reports: abdominal pain Allergies: Coded Allergies: AMOXICILLIN (Verified Allergy, Unknown, RASH, 06/29/14) CORTISONE (Verified Allergy, Unknown, 06/29/14) KETOROLAC (Verified Allergy, Unknown, 06/29/14) PENICILLINS (Verified Allergy, Unknown, 06/29/14) All Systems: reviewed and negative except above Subjective Pt seen by GI and general surgery with no further suggestions/interventions. KUB unremarkable. SOB resolved. CXR with no acute process. Seen by pulm. Pt continues to c/o abdominal pain. tolerated diet today with intermittent nausea but no emesis. Objective Last 24 Hour Vital Signs Date Time Temp Pulse Resp B/P (MAP) Pulse Ox O2 Delivery O2 Flow Rate FiO2 01/25/18 13:43 98.0 01/25/18 12:00 98.0 65 20 125/60 99 Room Air 98.0 01/25/18 10:35 58 146/60 01/25/18 08:37 99 Room Air 21 01/25/18 08:37 Room Air 21 01/25/18 08:37 79 20 Room Air 21 01/25/18 08:00 98.1 58 18 146/60 98 Room Air 98.1 01/25/18 07:40 98.1 01/25/18 04:11 98.2 56 19 151/51 98 98.2 01/25/18 00:48 98.3 64 19 135/50 97 98.3 01/25/18 00:16 98 Room Air 21 01/25/18 00:13 70 16 Room Air 21 01/24/18 20:20 67 147/100 01/24/18 20:19 98.1 67 18 147/100 100 98.1 01/24/18 18:32 98.2 01/24/18 16:00 98.2 67 18 129/57 98 Room Air 98.2 Intake and Output 01/24/18 01/25/18 19:00 07:00 Intake Total 120 ml 350 ml Balance 120 ml 350 ml Intake Oral 120 ml 350 ml # Voids 1 1 Laboratory Tests 01/25/18 05:10: White Blood Count 3.7#L, Red Blood Count 4.37, Hemoglobin 12.6, Hematocrit 38.0 , Mean Corpuscular Volume 87, Mean Corpuscular Hemoglobin 28.9, Mean Corpuscular Hemoglobin Concent 33.3, Red Cell Distribution Width 13.1, Platelet Count 155, Mean Platelet Volume 7.7, Neutrophils (%) (Auto) 62.0, Lymphocytes (% ) (Auto) 24.8, Monocytes (%) (Auto) 12.4H, Eosinophils (%) (Auto) 0.5, Basophils (%) (Auto) 0.4, Sodium Level 142, Potassium Level 4.1, Chloride Level 108H, Carbon Dioxide Level 29, Anion Gap 5, Blood Urea Nitrogen 14, Creatinine 1.1, Estimat Glomerular Filtration Rate , Glucose Level 98, Calcium Level 8.9, Magnesium Level 2.1, Amylase Level 102, Lipase 152 Height (Feet): 5 Height (Inches): 5.00 Weight (Pounds): 135 General Appearance: WD/WN, no apparent distress EENT: PERRL/EOMI Neck: normal alignment Cardiovascular: normal peripheral pulses Respiratory/Chest: no respiratory distress Abdomen: tender Adolfo Cardona MD Jan 25, 2018 14:59
[2018-01-25 16:09] VITALS: BP 121/53
[2018-01-25] MEDS: Xarelto 10mg tab ORAL SCH (17:32)
[2018-01-25 20:00] VITALS: BP 121/56
[2018-01-25] MEDS: Dyna-Hex 2% Top Sol 2oz TOPIC SCH (20:14)
[2018-01-25] MEDS: Miralax 17gm pkt ORAL SCH (20:15)
[2018-01-25] MEDS: TraZODone 50mg tab ORAL PRN (21:32)
[2018-01-26] VITALS: BP 134/59
[2018-01-26 04:00] VITALS: BP 131/58
[2018-01-26] MEDS: NovoLOG Insulin Flexpen SUBQ SCH ×4 (05:42→20:51)
[2018-01-26 06:28] LABS: HEMATOCRIT 36.1 % (37.0-47.0); HEMOGLOBIN 12.2 G/DL (12.0-16.0); MEAN CORPUSCULAR VOLUME 87 FL (80-99); PLATELET COUNT 142 K/UL (150-450); RED BLOOD COUNT 4.15 M/UL (4.20-5.40); WHITE BLOOD COUNT 2.5 K/UL (4.8-10.8)
[2018-01-26 06:55] LABS: ANION GAP 7 mmol/L (5-15); BLOOD UREA NITROGEN 24 mg/dL (7-18); CALCIUM 8.9 MG/DL (8.5-10.1); CARBON DIOXIDE 26 MMOL/L (21-32); CHLORIDE 107 MMOL/L (98-107); CREATININE 1.2 MG/DL (0.55-1.30); POTASSIUM 4.3 MMOL/L (3.5-5.1); SODIUM 140 MMOL/L (136-145)
[2018-01-26 08:00] VITALS: BP 137/59
[2018-01-26] MEDS: Docusate 100mg cap ORAL SCH ×5 (08:30→20:49)
[2018-01-26] MEDS: HYDROmorphone 4mg tab ORAL PRN ×3 (08:32→20:49)
--- NOTE | 2018-01-26 09:30 | Pulmonology Progress Note ---
Assessment/Plan Assessment/Plan ASSESSMENT AND PLAN: 1. History of DVT with PE. 2. Lupus. 3. Degenerative joint disease. 4. Osteoporosis. 5. Chronic back pain. 6. Chronic constipation. 7. Chronic anemia. 8. GERD. Respiratory status is stable Will follow No active interventions Tobacco cessation O2 prn Subjective Interval Events: saturting well on RA Constitutional: Reports: no symptoms HEENT: Repors: no symptoms Respiratory: Reports: no symptoms Cardiovascular: Reports: no symptoms Gastrointestinal/Abdominal: Reports: no symptoms Allergies: Coded Allergies: AMOXICILLIN (Verified Allergy, Unknown, RASH, 06/29/14) CORTISONE (Verified Allergy, Unknown, 06/29/14) KETOROLAC (Verified Allergy, Unknown, 06/29/14) PENICILLINS (Verified Allergy, Unknown, 06/29/14) Objective Last 24 Hour Vital Signs Date Time Temp Pulse Resp B/P (MAP) Pulse Ox O2 Delivery O2 Flow Rate FiO2 01/26/18 08:32 98.3 01/26/18 08:31 85 137/59 01/26/18 04:00 97.3 60 18 131/58 99 Room Air 97.3 01/26/18 00:00 97.3 65 19 134/59 99 Room Air 97.3 01/25/18 20:17 74 121/56 01/25/18 20:00 98.0 74 19 121/56 98 Room Air 98.0 01/25/18 19:25 Room Air 21 01/25/18 19:25 75 20 Room Air 21 01/25/18 19:25 98 Room Air 21 01/25/18 16:09 98.2 68 18 121/53 97 Room Air 98.2 01/25/18 14:48 98.0 01/25/18 13:43 98.0 01/25/18 12:00 98.0 65 20 125/60 99 Room Air 98.0 01/25/18 10:35 58 146/60 Intake and Output 01/25/18 01/26/18 19:00 07:00 Intake Total 480 ml 300 ml Balance 480 ml 300 ml Intake Oral 480 ml 300 ml # Voids 3 1 General Appearance: no acute distress HEENT: normocephalic Respiratory/Chest: chest wall non-tender, lungs clear Cardiovascular: normal peripheral pulses, normal rate Abdomen: normal bowel sounds Microbiology Date/Time Source Procedure Growth Status 01/23/18 15:25 Blood Blood Culture - Preliminary NO GROWTH AFTER 48 HOURS Resulted 01/23/18 15:10 Blood Blood Culture - Preliminary NO GROWTH AFTER 48 HOURS Resulted Laboratory Tests 01/26/18 05:15: White Blood Count 2.5L, Red Blood Count 4.15L, Hemoglobin 12.2, Hematocrit 36.1L , Mean Corpuscular Volume 87, Mean Corpuscular Hemoglobin 29.4, Mean Corpuscular Hemoglobin Concent 33.7, Red Cell Distribution Width 13.0, Platelet Count 142L, Mean Platelet Volume 8.1, Neutrophils (%) (Auto) , Lymphocytes (%) ( Auto) , Monocytes (%) (Auto) , Eosinophils (%) (Auto) , Basophils (%) (Auto) , Differential Total Cells Counted 100, Neutrophils % (Manual) 47, Lymphocytes % ( Manual) 34, Monocytes % (Manual) 17H, Eosinophils % (Manual) 2, Basophils % ( Manual) 0, Band Neutrophils 0, Platelet Estimate DecreasedL, Platelet Morphology Normal, Red Blood Cell Morphology Normal, Sodium Level 140, Potassium Level 4.3, Chloride Level 107, Carbon Dioxide Level 26, Anion Gap 7, Blood Urea Nitrogen 24H, Creatinine 1.2, Estimat Glomerular Filtration Rate , Glucose Level 107H, Calcium Level 8.9 Current Medications Medications (Trade) Dose Ordered Sig/Alexys Route PRN Reason Start Time Stop Time Status Last Admin Dose Admin Acetaminophen (Tylenol) 650 mg Q4H PRN ORAL Mild Pain (Pain Scale 1-3) 01/24/18 16:30 02/22/18 16:29 Acetaminophen (Tylenol) 650 mg Q4H PRN ORAL fever 01/24/18 16:30 02/22/18 16:29 Acetaminophen (Tylenol) 650 mg Q4H PRN RECTAL Mild Pain (Pain Scale 1-3) 01/24/18 16:30 02/22/18 16:29 Acetaminophen (Tylenol) 650 mg Q4H PRN RECTAL fever 01/24/18 16:30 02/22/18 16:29 Albuterol/ Ipratropium (Albuterol/ Ipratropium) 3 ml Q4H PRN HHN Shortness of Breath 01/24/18 16:30 01/28/18 16:29 Amlodipine Besylate (Norvasc) 5 mg Q12HR ORAL 01/24/18 21:00 02/22/18 20:59 01/26/18 08:31 Atorvastatin Calcium (Lipitor) 10 mg BEDTIME ORAL 01/24/18 21:00 02/22/18 20:59 01/25/18 20:14 Bisacodyl (Dulcolax) 10 mg HSPRN PRN RECTAL Constipation 01/24/18 21:00 02/22/18 20:59 Chlorhexidine Gluconate (Merari-Hex 2%) 1 applic DAILY@2000 TOPIC 01/24/18 20:00 02/23/18 19:59 01/25/18 20:14 Dextrose (Dextrose 50%) 25 ml STAT PRN IV Hypoglycemia 01/24/18 16:30 02/22/18 16:29 Dextrose (Dextrose 50%) 50 ml STAT PRN IV Hypoglycemia 01/24/18 16:30 02/22/18 16:29 Docusate Sodium (Colace) 100 mg EVERY 12 HOURS ORAL 01/24/18 21:00 02/22/18 20:59 01/25/18 20:15 Gabapentin (Neurontin) 300 mg Q8HR ORAL 01/24/18 22:00 02/22/18 21:59 01/26/18 05:40 Hydromorphone HCl (Dilaudid) 4 mg Q6H PRN ORAL Severe Pain (Pain Scale 7-10) 01/24/18 18:11 01/30/18 18:10 01/26/18 08:32 Insulin Aspart (NovoLOG) BEFORE MEALS AND HS SUBQ 01/24/18 16:30 02/23/18 11:29 01/26/18 05:42 Methocarbamol (Robaxin) 750 mg Q8H PRN ORAL muscle spasms 01/24/18 16:30 02/22/18 16:29 01/25/18 10:41 Ondansetron HCl (Zofran) 4 mg Q6H PRN IVP Nausea & Vomiting 01/24/18 18:11 02/22/18 18:10 01/25/18 20:21 Polyethylene Glycol (Miralax) 17 gm BEDTIME ORAL 01/25/18 21:00 02/24/18 20:59 01/25/18 20:15 Polyethylene Glycol (Miralax) 17 gm HSPRN PRN ORAL Constipation 6/24/18 21:00 02/22/18 20:59 01/24/18 21:37 Rivaroxaban (Xarelto) 20 mg QPM@1800 ORAL 01/24/18 18:00 02/22/18 19:59 01/25/18 17:32 Trazodone HCl (Desyrel) 50 mg BEDTIME PRN ORAL INSOMNIA 01/24/18 21:00 02/23/18 14:29 01/25/18 21:32 Miko Hernández MD Jan 26, 2018 09:30
[2018-01-26 12:00] VITALS: BP 142/66
--- NOTE | 2018-01-26 12:56 | General Progress Note ---
Assessment/Plan Status: stable Assessment/Plan # Leukopenia, likely related to hepatic congestion with splenomegaly. --> hepatitis panel and HIV are negative. --> ultrasound of the abdomen pending --> cont abx w/ ID service # Anemia due to underlying chronic disease. --> Closely monitor. --> anemia w/u reviewed. Will trend daily. --> hgb goal >7 # Deep venous thrombosis and pulmonary embolism history, --> currently resolved. --> Continue anticoagulation with Xarelto. # Abdominal pain, history of recurrent episodes, history of chronic pancreatitis with nausea. --> US scheduled for today --> amylase 102, lipase 152. Within normal range # Degenerative joint disease. # Osteoporosis. # Chronic back pain. # Gastroesophageal reflux disease. Subjective Date patient seen: Jan 26, 2018 ROS Limited/Unobtainable: Yes Allergies: Coded Allergies: AMOXICILLIN (Verified Allergy, Unknown, RASH, 06/29/14) CORTISONE (Verified Allergy, Unknown, 06/29/14) KETOROLAC (Verified Allergy, Unknown, 06/29/14) PENICILLINS (Verified Allergy, Unknown, 06/29/14) All Systems: reviewed and negative except above Subjective Abd US scheduled for today. Pt continues to c/o abdominal pain. Vitals are stable. No sob. Objective Last 24 Hour Vital Signs Date Time Temp Pulse Resp B/P (MAP) Pulse Ox O2 Delivery O2 Flow Rate FiO2 01/26/18 09:31 98.3 01/26/18 08:32 98.3 01/26/18 08:31 85 137/59 01/26/18 08:00 98.3 85 20 137/59 97 Room Air 98.3 01/26/18 04:00 97.3 60 18 131/58 99 Room Air 97.3 01/26/18 00:00 97.3 65 19 134/59 99 Room Air 97.3 01/25/18 20:17 74 121/56 01/25/18 20:00 98.0 74 19 121/56 98 Room Air 98.0 01/25/18 19:25 Room Air 21 01/25/18 19:25 75 20 Room Air 21 01/25/18 19:25 98 Room Air 21 01/25/18 16:09 98.2 68 18 121/53 97 Room Air 98.2 01/25/18 13:43 98.0 Intake and Output 6/25/18 6/26/18 19:00 07:00 Intake Total 480 ml 300 ml Balance 480 ml 300 ml Intake Oral 480 ml 300 ml # Voids 3 1 Laboratory Tests 01/26/18 05:15: White Blood Count 2.5L, Red Blood Count 4.15L, Hemoglobin 12.2, Hematocrit 36.1L , Mean Corpuscular Volume 87, Mean Corpuscular Hemoglobin 29.4, Mean Corpuscular Hemoglobin Concent 33.7, Red Cell Distribution Width 13.0, Platelet Count 142L, Mean Platelet Volume 8.1, Neutrophils (%) (Auto) , Lymphocytes (%) ( Auto) , Monocytes (%) (Auto) , Eosinophils (%) (Auto) , Basophils (%) (Auto) , Differential Total Cells Counted 100, Neutrophils % (Manual) 47, Lymphocytes % ( Manual) 34, Monocytes % (Manual) 17H, Eosinophils % (Manual) 2, Basophils % ( Manual) 0, Band Neutrophils 0, Platelet Estimate DecreasedL, Platelet Morphology Normal, Red Blood Cell Morphology Normal, Sodium Level 140, Potassium Level 4.3, Chloride Level 107, Carbon Dioxide Level 26, Anion Gap 7, Blood Urea Nitrogen 24H, Creatinine 1.2, Estimat Glomerular Filtration Rate , Glucose Level 107H, Calcium Level 8.9 Height (Feet): 5 Height (Inches): 5.00 Weight (Pounds): 135 General Appearance: no apparent distress, alert EENT: PERRL/EOMI Neck: normal alignment Cardiovascular: normal peripheral pulses Respiratory/Chest: no respiratory distress Abdomen: no mass Adolfo Cardona MD Jan 26, 2018 12:56
--- NOTE | 2018-01-26 13:44 | General Surgery Progress Note ---
General Surgery-Progress Note Subjective Symptoms: tolerating diet, BM Additional Comments no acute events. Objective Last 24 Hour Vital Signs Date Time Temp Pulse Resp B/P (MAP) Pulse Ox O2 Delivery O2 Flow Rate FiO2 01/26/18 12:00 96.4 86 18 142/66 100 Room Air 96.4 01/26/18 09:31 98.3 01/26/18 08:32 98.3 01/26/18 08:31 85 137/59 01/26/18 08:00 98.3 85 20 137/59 97 Room Air 98.3 01/26/18 04:00 97.3 60 18 131/58 99 Room Air 97.3 01/26/18 00:00 97.3 65 19 134/59 99 Room Air 97.3 01/25/18 20:17 74 121/56 01/25/18 20:00 98.0 74 19 121/56 98 Room Air 98.0 01/25/18 19:25 Room Air 21 01/25/18 19:25 75 20 Room Air 21 01/25/18 19:25 98 Room Air 21 01/25/18 16:09 98.2 68 18 121/53 97 Room Air 98.2 I&O Intake and Output 01/25/18 01/26/18 19:00 07:00 Intake Total 480 ml 300 ml Balance 480 ml 300 ml Intake Oral 480 ml 300 ml # Voids 3 1 Drains: none Cardiovascular: RSR Respiratory: clear Abdomen: soft, non-tender, present bowel sounds Extremities: no edema Laboratory Tests Test 01/26/18 05:15 White Blood Count 2.5 K/UL (4.8-10.8) L Red Blood Count 4.15 M/UL (4.20-5.40) L Hemoglobin 12.2 G/DL (12.0-16.0) Hematocrit 36.1 % (37.0-47.0) L Mean Corpuscular Volume 87 FL (80-99) Mean Corpuscular Hemoglobin 29.4 PG (27.0-31.0) Mean Corpuscular Hemoglobin Concent 33.7 G/DL (32.0-36.0) Red Cell Distribution Width 13.0 % (11.6-14.8) Platelet Count 142 K/UL (150-450) L Mean Platelet Volume 8.1 FL (6.5-10.1) Neutrophils (%) (Auto) % (45.0-75.0) Lymphocytes (%) (Auto) % (20.0-45.0) Monocytes (%) (Auto) % (1.0-10.0) Eosinophils (%) (Auto) % (0.0-3.0) Basophils (%) (Auto) % (0.0-2.0) Differential Total Cells Counted 100 Neutrophils % (Manual) 47 % (45-75) Lymphocytes % (Manual) 34 % (20-45) Monocytes % (Manual) 17 % (1-10) H Eosinophils % (Manual) 2 % (0-3) Basophils % (Manual) 0 % (0-2) Band Neutrophils 0 % (0-8) Platelet Estimate Decreased L Platelet Morphology Normal Red Blood Cell Morphology Normal Sodium Level 140 MMOL/L (136-145) Potassium Level 4.3 MMOL/L (3.5-5.1) Chloride Level 107 MMOL/L (98-107) Carbon Dioxide Level 26 MMOL/L (21-32) Anion Gap 7 mmol/L (5-15) Blood Urea Nitrogen 24 mg/dL (7-18) H Creatinine 1.2 MG/DL (0.55-1.30) Estimat Glomerular Filtration Rate mL/min (>60) Glucose Level 107 MG/DL (74-106) H Calcium Level 8.9 MG/DL (8.5-10.1) Plan Problems: (1) Abdominal pain Assessment & Plan: 72F with abdominal pain. mid abdomen/epigastric cramping. history of prior episodes which resolve without intervention. currently pain improved. +nausea intermittent, no emesis. labs reviewed. exam fairly benign. KUB okay. labs okay -no acute surgical intervention needed at this time. -diet as tolerated -thank you for this consultation. will follow with recs. Demarcus Ramirez Jan 26, 2018 13:44
--- NOTE | 2018-01-26 13:50 | GI Progress Note ---
Assessment/Plan Problems: (1) Acute on chronic abd pain (2) DM2 (diabetes mellitus, type 2) ICD Codes: E11.9 - Type 2 diabetes mellitus without complications SNOMED: 59977447 (3) Abdominal pain Qualifiers: Qualified Codes: R10.13 - Epigastric pain (4) Chronic constipation ICD Codes: K59.09 - Other constipation SNOMED: 329077675 (5) Anemia ICD Codes: D64.9 - Anemia, unspecified SNOMED: 517678433 Status: stable Status Narrative Discussed with Dr. Victoria. Assessment/Plan no anemia symptomatic treatment bowel regime >> colace + miralax, add Dulcolax prn zofran prn ppi PT evaluation fu labs outpatient colonoscopy The patient was seen and examined at bedside and all new and available data was reviewed in the patients chart. I agree with the above findings, impression and plan. (Patient seen earlier today. Signature stamp does not reflect patient encounter time.). - Bhargav Victoria MD Subjective Subjective abdominal pain constipated, no BM since admission x 2 days Objective Last 24 Hour Vital Signs Date Time Temp Pulse Resp B/P (MAP) Pulse Ox O2 Delivery O2 Flow Rate FiO2 01/26/18 12:00 96.4 86 18 142/66 100 Room Air 96.4 01/26/18 09:31 98.3 01/26/18 08:32 98.3 01/26/18 08:31 85 137/59 01/26/18 08:00 98.3 85 20 137/59 97 Room Air 98.3 01/26/18 04:00 97.3 60 18 131/58 99 Room Air 97.3 01/26/18 00:00 97.3 65 19 134/59 99 Room Air 97.3 01/25/18 20:17 74 121/56 01/25/18 20:00 98.0 74 19 121/56 98 Room Air 98.0 01/25/18 19:25 Room Air 21 01/25/18 19:25 75 20 Room Air 21 01/25/18 19:25 98 Room Air 21 01/25/18 16:09 98.2 68 18 121/53 97 Room Air 98.2 Intake and Output 01/25/18 01/26/18 19:00 07:00 Intake Total 480 ml 300 ml Balance 480 ml 300 ml Intake Oral 480 ml 300 ml # Voids 3 1 Laboratory Tests Test 01/26/18 05:15 White Blood Count 2.5 K/UL (4.8-10.8) L Red Blood Count 4.15 M/UL (4.20-5.40) L Hemoglobin 12.2 G/DL (12.0-16.0) Hematocrit 36.1 % (37.0-47.0) L Mean Corpuscular Volume 87 FL (80-99) Mean Corpuscular Hemoglobin 29.4 PG (27.0-31.0) Mean Corpuscular Hemoglobin Concent 33.7 G/DL (32.0-36.0) Red Cell Distribution Width 13.0 % (11.6-14.8) Platelet Count 142 K/UL (150-450) L Mean Platelet Volume 8.1 FL (6.5-10.1) Neutrophils (%) (Auto) % (45.0-75.0) Lymphocytes (%) (Auto) % (20.0-45.0) Monocytes (%) (Auto) % (1.0-10.0) Eosinophils (%) (Auto) % (0.0-3.0) Basophils (%) (Auto) % (0.0-2.0) Differential Total Cells Counted 100 Neutrophils % (Manual) 47 % (45-75) Lymphocytes % (Manual) 34 % (20-45) Monocytes % (Manual) 17 % (1-10) H Eosinophils % (Manual) 2 % (0-3) Basophils % (Manual) 0 % (0-2) Band Neutrophils 0 % (0-8) Platelet Estimate Decreased L Platelet Morphology Normal Red Blood Cell Morphology Normal Sodium Level 140 MMOL/L (136-145) Potassium Level 4.3 MMOL/L (3.5-5.1) Chloride Level 107 MMOL/L (98-107) Carbon Dioxide Level 26 MMOL/L (21-32) Anion Gap 7 mmol/L (5-15) Blood Urea Nitrogen 24 mg/dL (7-18) H Creatinine 1.2 MG/DL (0.55-1.30) Estimat Glomerular Filtration Rate mL/min (>60) Glucose Level 107 MG/DL (74-106) H Calcium Level 8.9 MG/DL (8.5-10.1) Height (Feet): 5 Height (Inches): 5.00 Weight (Pounds): 135 General Appearance: WD/WN, no apparent distress, alert Cardiovascular: normal rate Respiratory/Chest: normal breath sounds, no respiratory distress Abdominal Exam: normal bowel sounds, non tender, soft Extremities: normal range of motion, non-tender Tien Henry NP Jan 26, 2018 13:50
--- NOTE | 2018-01-26 14:33 | Diagnostic Imaging Report ---
Indication: Abdominal pain Technique: Fox-scale and duplex images of the upper abdomen were obtained Comparison: For 06/22/2015 Findings: Gallbladder is surgically absent. Common bile duct measures 10 mm in diameter. This is increased from the prior study No intrahepatic biliary ductal dilatation. Liver demonstrates normal echogenicity, no focal abnormality. Portal vein and hepatic veins are patent. Pancreas is unremarkable. Spleen is unremarkable. Left kidney measures 9.2 cm in length. Right kidney measures 9 cm length. Both kidneys demonstrate normal echogenicity. There is no hydronephrosis, although there is mild right renal collecting system fullness which results with voiding. There are bilateral small renal cysts . Non-aneurysmal abdominal aorta . Prevoid urinary bladder volume 357 mL. Postvoid urinary bladder volume one 78 mL Impression: Surgically absent gallbladder Dilated common bile duct. Suspect related to age and postcholecystectomy state, downstream obstruction not completely excludable particularly in view of normal caliber on prior study 11/11/2014. Correlate with liver function tests, consider MRCP if clinically indicated 178 mL postvoid urinary bladder volume Right renal collecting system fullness, resolved after patient voids Incidental finding bilateral renal cysts
[2018-01-26 16:00] VITALS: BP 133/61
[2018-01-26] MEDS: Xarelto 10mg tab ORAL SCH (17:07)
--- NOTE | 2018-01-26 19:04 | General Progress Note ---
Assessment/Plan Assessment/Plan chronic abdominal pain chronic back pain sp fall last week mechanical diabetes ho lupus ho hypercoagulable condition ho HTN pain control check us will have Dr Hernández see patient on xarelto Dr Oliver has seen from ortho perpective in past dc planning Subjective Allergies: Coded Allergies: AMOXICILLIN (Verified Allergy, Unknown, RASH, 06/29/14) CORTISONE (Verified Allergy, Unknown, 06/29/14) KETOROLAC (Verified Allergy, Unknown, 06/29/14) PENICILLINS (Verified Allergy, Unknown, 06/29/14) Subjective concerned about her diabetes, wasnt taking meds co back pain chrnoic abdominal pain same Objective Last 24 Hour Vital Signs Date Time Temp Pulse Resp B/P (MAP) Pulse Ox O2 Delivery O2 Flow Rate FiO2 01/26/18 16:00 97.3 74 20 133/61 100 Room Air 97.3 01/26/18 15:48 96.4 01/26/18 14:49 96.4 01/26/18 12:00 96.4 86 18 142/66 100 Room Air 96.4 01/26/18 08:32 98.3 01/26/18 08:31 85 137/59 01/26/18 08:00 98.3 85 20 137/59 97 Room Air 98.3 01/26/18 04:00 97.3 60 18 131/58 99 Room Air 97.3 01/26/18 00:00 97.3 65 19 134/59 99 Room Air 97.3 01/25/18 20:17 74 121/56 01/25/18 20:00 98.0 74 19 121/56 98 Room Air 98.0 01/25/18 19:25 Room Air 21 01/25/18 19:25 75 20 Room Air 21 01/25/18 19:25 98 Room Air 21 Intake and Output 01/25/18 01/26/18 19:00 07:00 Intake Total 480 ml 300 ml Balance 480 ml 300 ml Intake Oral 480 ml 300 ml # Voids 3 1 Laboratory Tests 01/26/18 05:15: White Blood Count 2.5L, Red Blood Count 4.15L, Hemoglobin 12.2, Hematocrit 36.1L , Mean Corpuscular Volume 87, Mean Corpuscular Hemoglobin 29.4, Mean Corpuscular Hemoglobin Concent 33.7, Red Cell Distribution Width 13.0, Platelet Count 142L, Mean Platelet Volume 8.1, Neutrophils (%) (Auto) , Lymphocytes (%) ( Auto) , Monocytes (%) (Auto) , Eosinophils (%) (Auto) , Basophils (%) (Auto) , Differential Total Cells Counted 100, Neutrophils % (Manual) 47, Lymphocytes % ( Manual) 34, Monocytes % (Manual) 17H, Eosinophils % (Manual) 2, Basophils % ( Manual) 0, Band Neutrophils 0, Platelet Estimate DecreasedL, Platelet Morphology Normal, Red Blood Cell Morphology Normal, Sodium Level 140, Potassium Level 4.3, Chloride Level 107, Carbon Dioxide Level 26, Anion Gap 7, Blood Urea Nitrogen 24H, Creatinine 1.2, Estimat Glomerular Filtration Rate , Glucose Level 107H, Calcium Level 8.9 Height (Feet): 5 Height (Inches): 5.00 Weight (Pounds): 135 General Appearance: WD/WN EENT: PERRL/EOMI Neck: supple Cardiovascular: normal rate Respiratory/Chest: lungs clear Abdomen: soft Edema: no edema noted Arm (L), no edema noted Arm (R), no edema noted Leg (L), no edema noted Leg (R), no edema noted Pedal (L), no edema noted Pedal (R), no edema noted Generalized Neurologic: early childhood assistant II-XII grossly normal, alert Vito Malin MD Jan 26, 2018 19:04
[2018-01-26 20:00] VITALS: BP 139/65
[2018-01-26] MEDS: Dyna-Hex 2% Top Sol 2oz TOPIC SCH (20:48)
[2018-01-26] MEDS: Miralax 17gm pkt ORAL SCH (20:49)
--- NOTE | 2018-01-26 23:15 | Consultation ---
History of Present Illness General Date patient seen: Jan 26, 2018 Chief Complaint: General Complaint Reason for Consultation: abdominal pain Present Illness HPI 72-year-old female with a history of hypertension, hyperlipidemia, SLE, history of DVT and PE, on Eliquis, as well as CVA, GERD. the pt is anxious. the pt has cognitive impairment Allergies: Coded Allergies: AMOXICILLIN (Verified Allergy, Unknown, RASH, 06/29/14) CORTISONE (Verified Allergy, Unknown, 06/29/14) KETOROLAC (Verified Allergy, Unknown, 06/29/14) PENICILLINS (Verified Allergy, Unknown, 06/29/14) Medication History Scheduled Alendronate Sodium* (Fosamax*), 70 MG ORAL ONCE A WEEK, (Reported) Alprazolam* (Xanax*), 0.25 MG ORAL THREE TIMES A DAY, (Reported) Amlodipine Besylate (Norvasc), 5 MG ORAL BID, (Reported) Atorvastatin Calcium* (Lipitor*), 10 MG ORAL BEDTIME, (Reported) Gabapentin* (Gabapentin*), 300 MG ORAL THREE TIMES A DAY Hydromorphone HCl (Dilaudid), 4 MG ORAL TID, (Reported) Lidocaine (Lidoderm), 1 PATCH TOPIC DAILY Methocarbamol* (Robaxin-750*), 750 MG PO TID Polyethylene Glycol* (Miralax*), 17 GM ORAL DAILY, (Reported) Rivaroxaban (Xarelto*), 20 MG ORAL DAILY, (Reported) Scheduled PRN Ondansetron* (Zofran*), 4 MG ORAL Q6H PRN for Nausea & Vomiting, (Reported) Oxycodone Hcl (Oxycodone Hcl), 60 MG ORAL QHS PRN for For Pain, (Reported) Patient History Limited by: medical condition History Provided By: Patient, Medical Record, PMD Healthcare decision maker Resuscitation status Full Code Advanced Directive on File No Past Medical/Surgical History Past Medical/Surgical History: (1) Problem (2) Encounter for generalized patient complaints (3) Low back pain (4) Low back pain (5) Hematuria (6) Anemia (7) Anemia (8) SOB (shortness of breath) (9) Gastritis (10) Hyperglycemia (11) Osteoarthritis (12) Syncope (13) Syncope (14) Vertigo (15) Vertigo (16) Chronic pancreatitis (17) UTI (urinary tract infection) (18) DVT (deep venous thrombosis) (19) GERD (gastroesophageal reflux disease) (20) GERD (gastroesophageal reflux disease) (21) [address] (22) Abdominal pain (23) Chronic constipation (24) Lupus (25) Lupus (26) Hilda esophagitis (27) NSTEMI (non-ST elevated myocardial infarction) (28) Knee pain, bilateral (29) Abdominal pain of unknown etiology (30) Abdominal pain of unknown etiology (31) C. difficile colitis (32) Urinary tract infection, E. coli (33) Nausea, vomiting, and diarrhea (34) Nausea, vomiting, and diarrhea (35) Intractable abdominal pain (36) Intractable abdominal pain (37) Bilateral lower extremity pain (38) Abdominal pain (39) HTN (hypertension) (40) HLD (hyperlipidemia) (41) lives on own (42) Leukopenia (43) DM2 (diabetes mellitus, type 2) (44) Acute on chronic abd pain Review of Systems Psychiatric: Reports: anxiety, emotional problems Physical Exam General Appearance: alert Neurologic: oriented x 3, responsive, depressed affect Last 24 Hour Vital Signs Date Time Temp Pulse Resp B/P (MAP) Pulse Ox O2 Delivery O2 Flow Rate FiO2 01/26/18 20:48 72 139/65 01/26/18 20:20 100 Room Air 21 01/26/18 20:20 70 18 Room Air 21 01/26/18 20:20 Room Air 21 01/26/18 20:00 97.9 18 139/65 98 Room Air 97.9 01/26/18 16:00 97.3 74 20 133/61 100 Room Air 97.3 01/26/18 15:48 96.4 01/26/18 14:49 96.4 01/26/18 12:00 96.4 86 18 142/66 100 Room Air 96.4 01/26/18 08:32 98.3 01/26/18 08:31 85 137/59 01/26/18 08:00 98.3 85 20 137/59 97 Room Air 98.3 01/26/18 04:00 97.3 60 18 131/58 99 Room Air 97.3 01/26/18 00:00 97.3 65 19 134/59 99 Room Air 97.3 Intake and Output 01/25/18 01/26/18 19:00 07:00 Intake Total 480 ml 300 ml Balance 480 ml 300 ml Intake Oral 480 ml 300 ml # Voids 3 1 Laboratory Tests Test 01/26/18 05:15 White Blood Count 2.5 K/UL (4.8-10.8) L Red Blood Count 4.15 M/UL (4.20-5.40) L Hemoglobin 12.2 G/DL (12.0-16.0) Hematocrit 36.1 % (37.0-47.0) L Mean Corpuscular Volume 87 FL (80-99) Mean Corpuscular Hemoglobin 29.4 PG (27.0-31.0) Mean Corpuscular Hemoglobin Concent 33.7 G/DL (32.0-36.0) Red Cell Distribution Width 13.0 % (11.6-14.8) Platelet Count 142 K/UL (150-450) L Mean Platelet Volume 8.1 FL (6.5-10.1) Neutrophils (%) (Auto) % (45.0-75.0) Lymphocytes (%) (Auto) % (20.0-45.0) Monocytes (%) (Auto) % (1.0-10.0) Eosinophils (%) (Auto) % (0.0-3.0) Basophils (%) (Auto) % (0.0-2.0) Differential Total Cells Counted 100 Neutrophils % (Manual) 47 % (45-75) Lymphocytes % (Manual) 34 % (20-45) Monocytes % (Manual) 17 % (1-10) H Eosinophils % (Manual) 2 % (0-3) Basophils % (Manual) 0 % (0-2) Band Neutrophils 0 % (0-8) Platelet Estimate Decreased L Platelet Morphology Normal Red Blood Cell Morphology Normal Sodium Level 140 MMOL/L (136-145) Potassium Level 4.3 MMOL/L (3.5-5.1) Chloride Level 107 MMOL/L (98-107) Carbon Dioxide Level 26 MMOL/L (21-32) Anion Gap 7 mmol/L (5-15) Blood Urea Nitrogen 24 mg/dL (7-18) H Creatinine 1.2 MG/DL (0.55-1.30) Estimat Glomerular Filtration Rate mL/min (>60) Glucose Level 107 MG/DL (74-106) H Calcium Level 8.9 MG/DL (8.5-10.1) Height (Feet): 5 Height (Inches): 5.00 Weight (Pounds): 135 Medications Current Medications Medications (Trade) Dose Ordered Sig/Alexys Route PRN Reason Start Time Stop Time Status Last Admin Dose Admin Acetaminophen (Tylenol) 650 mg Q4H PRN ORAL Mild Pain (Pain Scale 1-3) 01/24/18 16:30 02/22/18 16:29 Acetaminophen (Tylenol) 650 mg Q4H PRN ORAL fever 01/24/18 16:30 02/22/18 16:29 Acetaminophen (Tylenol) 650 mg Q4H PRN RECTAL Mild Pain (Pain Scale 1-3) 01/24/18 16:30 02/22/18 16:29 Acetaminophen (Tylenol) 650 mg Q4H PRN RECTAL fever 01/24/18 16:30 02/22/18 16:29 Albuterol/ Ipratropium (Albuterol/ Ipratropium) 3 ml Q4H PRN HHN Shortness of Breath 01/24/18 16:30 01/28/18 16:29 Amlodipine Besylate (Norvasc) 5 mg Q12HR ORAL 01/24/18 21:00 02/22/18 20:59 01/26/18 20:48 Atorvastatin Calcium (Lipitor) 10 mg BEDTIME ORAL 01/24/18 21:00 02/22/18 20:59 01/26/18 20:48 Bisacodyl (Dulcolax) 10 mg HSPRN PRN RECTAL Constipation 01/24/18 21:00 02/22/18 20:59 Chlorhexidine Gluconate (Merari-Hex 2%) 1 applic DAILY@1999 TOPIC 01/24/18 20:00 02/23/18 19:59 01/26/18 20:48 Dextrose (Dextrose 50%) 25 ml STAT PRN IV Hypoglycemia 01/24/18 16:30 02/22/18 16:29 Dextrose (Dextrose 50%) 50 ml STAT PRN IV Hypoglycemia 01/24/18 16:30 02/22/18 16:29 Docusate Sodium (Colace) 100 mg EVERY 12 HOURS ORAL 01/24/18 21:00 02/22/18 20:59 01/26/18 20:49 Gabapentin (Neurontin) 300 mg Q8HR ORAL 01/24/18 22:00 02/22/18 21:59 01/26/18 20:49 Hydromorphone HCl (Dilaudid) 4 mg Q6H PRN ORAL Severe Pain (Pain Scale 7-10) 01/24/18 18:11 01/30/18 18:10 01/26/18 20:49 Insulin Aspart (NovoLOG) BEFORE MEALS AND HS SUBQ 01/24/18 16:30 02/23/18 11:29 01/26/18 20:51 Methocarbamol (Robaxin) 750 mg Q8H PRN ORAL muscle spasms 01/24/18 16:30 02/22/18 16:29 01/25/18 10:41 Nateglinide (Starlix) 60 mg TIAC ORAL 01/27/18 06:30 02/26/18 06:29 Ondansetron HCl (Zofran) 4 mg Q6H PRN IVP Nausea & Vomiting 01/24/18 18:11 02/22/18 18:10 01/26/18 09:50 Polyethylene Glycol (Miralax) 17 gm BEDTIME ORAL 01/25/18 21:00 02/24/18 20:59 01/26/18 20:49 Polyethylene Glycol (Miralax) 17 gm HSPRN PRN ORAL Constipation 01/24/18 21:00 02/22/18 20:59 01/24/18 21:37 Rivaroxaban (Xarelto) 20 mg QPM@1800 ORAL 01/24/18 18:00 02/22/18 19:59 01/26/18 17:07 Sitagliptin Phosphate (Januvia) 50 mg ACBREAKFAST ORAL 01/27/18 06:30 02/26/18 06:29 Trazodone HCl (Desyrel) 50 mg BEDTIME PRN ORAL INSOMNIA 01/24/18 21:00 02/23/18 14:29 01/25/18 21:32 Assessment/Plan Assessment/Plan Anxiety d/o cognitive impairment -cont current meds Tiburcio Horn M.D. Jan 26, 2018 23:15
[2018-01-27] VITALS: BP 134/61
--- NOTE | 2018-01-27 03:00 | Consultation ---
DATE OF CONSULTATION: 01/26/2018 ENDOCRINOLOGY CONSULTATION CONSULTING PHYSICIAN: Aníbal Hernández M.D. REFERRING PHYSICIAN: Vito Malin M.D. REASON FOR CONSULTATION: Diabetes management. HISTORY OF PRESENT ILLNESS: The patient is a 72-year-old female with a history of hypertension, hyperlipidemia, SLE, history of DVT and PE, on Eliquis, as well as CVA, GERD, and remote history of diabetes, who presented to the hospital with increasing abdominal discomfort and back pain since yesterday prior to this admission and also associated with nausea, but no vomiting. Abdominal pain was crampy. Admitted to the floor for observation and treatment. I was called to manage diabetes as glucose was noted to be elevated and A1c is up to 7.7. PAST MEDICAL HISTORY: 1. Type 2 diabetes, diagnosed 20 years ago and disappeared after significant weight loss. Last year, she was checked for diabetes and there was no evidence of it, but lately, she has not been active as the last year due to her health issues. 2. DVT. 3. PE. 4. Glucose. 5. Degenerative joint disease. 6. Osteoporosis. 7. Chronic back pain. 8. Hypertension. 9. Hyperlipidemia. 10. Chronic anemia. 11. GERD. MEDICATION: Reviewed and reconciled. ALLERGIES: Amoxicillin, cortisone, ketoralac, and penicillin. SOCIAL HISTORY: The patient smokes. No alcohol or drug use. FAMILY HISTORY: Diabetes runs in the family. REVIEW OF SYSTEMS: A 12-point review of systems was performed. The pertinent positives and negatives are as mentioned in the history of present illness. LABORATORY DATA: WBC 2.5, hemoglobin 12.2, and hematocrit 37. Sodium 140, potassium 4.3, chloride 107, bicarbonate 24, BUN 24, and creatinine 1.2. Glucose of 107. A1c of 7.7. PHYSICAL EXAMINATION: GENERAL: She is awake and alert. VITAL SIGNS: Blood pressure is 133/61, pulse of 74, and temperature 97.3. HEENT: Pupils are equal and reactive to light. Sclerae are anicteric. NECK: No JVD. No thyromegaly. No bruit. LUNGS: Clear. HEART: Regular rate and rhythm. ABDOMEN: Positive bowel sounds. EXTREMITIES: No clubbing, cyanosis, or edema. IMPRESSION: 1. Diabetes relapse. 2. Abdominal pain. 3. Hypertension. 4. Hyperlipidemia. PLAN: 1. We will hold off from all the metformin as a first-line treatment for type 2 diabetes. I would like to hold off on that since the patient came with abdominal symptoms and exacerbate her gastrointestinal symptoms by adding metformin. 2. Start Starlix 60 mg before meals t.i.d. 3. Start Januvia 100 mg daily. 4. NovoLog sliding scale before meals and at bedtime. 5. Further adjustment depending on blood glucose values. Thank you, Dr. Malin, for the courtesy of this consultation. Aníbal Hernández M.D. DR: ALEJANDRINA JOB#: [id number] CC: SARAH
[2018-01-27 04:00] VITALS: BP 128/60
[2018-01-27] MEDS: HYDROmorphone 4mg tab ORAL PRN ×3 (05:04→21:13)
[2018-01-27] MEDS: Nateglinide 60mg tab ORAL SCH ×3 (06:28→17:04)
[2018-01-27] MEDS: sitaGLIPtin 50mg tab ORAL SCH (06:28)
[2018-01-27] MEDS: NovoLOG Insulin Flexpen SUBQ SCH ×4 (06:30→21:14)
--- NOTE | 2018-01-27 07:27 | General Progress Note ---
Assessment/Plan Problem List: (1) Abdominal pain ICD Codes: R10.9 - Unspecified abdominal pain SNOMED: 68383963 (2) DM2 (diabetes mellitus, type 2) ICD Codes: E11.9 - Type 2 diabetes mellitus without complications SNOMED: 84920086 Assessment/Plan Starlix 60 mg ac tid Januvia 50 mg daily NISS no need for insulin after discharge Subjective Allergies: Coded Allergies: AMOXICILLIN (Verified Allergy, Unknown, RASH, 06/29/14) CORTISONE (Verified Allergy, Unknown, 06/29/14) KETOROLAC (Verified Allergy, Unknown, 06/29/14) PENICILLINS (Verified Allergy, Unknown, 06/29/14) All Systems: reviewed and negative except above Subjective events noted Objective Last 24 Hour Vital Signs Date Time Temp Pulse Resp B/P (MAP) Pulse Ox O2 Delivery O2 Flow Rate FiO2 01/27/18 04:00 97.8 76 18 128/60 98 Room Air 97.8 01/27/18 00:00 98.1 66 18 134/61 99 Room Air 98.1 01/26/18 20:48 72 139/65 01/26/18 20:20 100 Room Air 21 01/26/18 20:20 70 18 Room Air 21 01/26/18 20:20 Room Air 21 01/26/18 20:00 97.9 72 18 139/65 98 Room Air 97.9 01/26/18 16:00 97.3 74 20 133/61 100 Room Air 97.3 01/26/18 15:48 96.4 01/26/18 14:49 96.4 01/26/18 12:00 96.4 86 18 142/66 100 Room Air 96.4 01/26/18 08:32 98.3 01/26/18 08:31 85 137/59 01/26/18 08:00 98.3 85 20 137/59 97 Room Air 98.3 Intake and Output 01/26/18 01/27/18 19:00 07:00 Intake Total 350 ml 480 ml Balance 350 ml 480 ml Intake Oral 350 ml 480 ml # Voids 2 2 Height (Feet): 5 Height (Inches): 5.00 Weight (Pounds): 104 General Appearance: no apparent distress Neck: normal alignment Cardiovascular: normal rate Respiratory/Chest: lungs clear Abdomen: normal bowel sounds Pelvis: normal external exam Objective Current Medications Medications (Trade) Dose Ordered Sig/Alexys Route PRN Reason Start Time Stop Time Status Last Admin Dose Admin Acetaminophen (Tylenol) 650 mg Q4H PRN ORAL Mild Pain (Pain Scale 1-3) 01/24/18 16:30 02/22/18 16:29 Acetaminophen (Tylenol) 650 mg Q4H PRN ORAL fever 01/24/18 16:30 02/22/18 16:29 Acetaminophen (Tylenol) 650 mg Q4H PRN RECTAL Mild Pain (Pain Scale 1-3) 01/24/18 16:30 02/22/18 16:29 Acetaminophen (Tylenol) 650 mg Q4H PRN RECTAL fever 01/24/18 16:30 02/22/18 16:29 Albuterol/ Ipratropium (Albuterol/ Ipratropium) 3 ml Q4H PRN HHN Shortness of Breath 01/24/18 16:30 01/28/18 16:29 Amlodipine Besylate (Norvasc) 5 mg Q12HR ORAL 01/24/18 21:00 02/22/18 20:59 01/26/18 20:48 Atorvastatin Calcium (Lipitor) 10 mg BEDTIME ORAL 01/24/18 21:00 02/22/18 20:59 01/26/18 20:48 Bisacodyl (Dulcolax) 10 mg HSPRN PRN RECTAL Constipation 01/24/18 21:00 02/22/18 20:59 Chlorhexidine Gluconate (Merari-Hex 2%) 1 applic DAILY@1999 TOPIC 01/24/18 20:00 02/23/18 19:59 01/26/18 20:48 Dextrose (Dextrose 50%) 25 ml STAT PRN IV Hypoglycemia 01/24/18 16:30 02/22/18 16:29 Dextrose (Dextrose 50%) 50 ml STAT PRN IV Hypoglycemia 01/24/18 16:30 02/22/18 16:29 Docusate Sodium (Colace) 100 mg EVERY 12 HOURS ORAL 01/24/18 21:00 02/22/18 20:59 01/26/18 20:49 Gabapentin (Neurontin) 300 mg Q8HR ORAL 01/24/18 22:00 02/22/18 21:59 01/27/18 05:45 Hydromorphone HCl (Dilaudid) 4 mg Q6H PRN ORAL Severe Pain (Pain Scale 7-10) 01/24/18 18:11 01/30/18 18:10 01/27/18 05:04 Insulin Aspart (NovoLOG) BEFORE MEALS AND HS SUBQ 01/24/18 16:30 02/23/18 11:29 01/27/18 06:30 Methocarbamol (Robaxin) 750 mg Q8H PRN ORAL muscle spasms 01/24/18 16:30 02/22/18 16:29 01/25/18 10:41 Nateglinide (Starlix) 60 mg TIAC ORAL 01/27/18 06:30 02/26/18 06:29 01/27/18 06:28 Ondansetron HCl (Zofran) 4 mg Q6H PRN IVP Nausea & Vomiting 01/24/18 18:11 02/22/18 18:10 01/27/18 00:15 Polyethylene Glycol (Miralax) 17 gm BEDTIME ORAL 01/25/18 21:00 02/24/18 20:59 01/26/18 20:49 Polyethylene Glycol (Miralax) 17 gm HSPRN PRN ORAL Constipation 01/24/18 21:00 02/22/18 20:59 01/24/18 21:37 Rivaroxaban (Xarelto) 20 mg QPM@1800 ORAL 01/24/18 18:00 02/22/18 19:59 01/26/18 17:07 Sitagliptin Phosphate (Januvia) 50 mg ACBREAKFAST ORAL 01/27/18 06:30 02/26/18 06:29 01/27/18 06:28 Trazodone HCl (Desyrel) 50 mg BEDTIME PRN ORAL INSOMNIA 01/24/18 21:00 02/23/18 14:29 01/25/18 21:32 Item Value Date Time Bedside Blood Glucose 112 mg/dl 01/27/18 0630 Bedside Blood Glucose 124 mg/dl H 01/26/18 2100 Bedside Blood Glucose 236 mg/dl H 01/26/18 1708 Bedside Blood Glucose 137 mg/dl H 01/26/18 1205 Bedside Blood Glucose 116 mg/dl 01/26/18 0630 Aníbal Hernández MD Jan 27, 2018 07:27
[2018-01-27 07:57] LABS: HEMATOCRIT 37.1 % (37.0-47.0); HEMOGLOBIN 12.5 G/DL (12.0-16.0); MEAN CORPUSCULAR VOLUME 87 FL (80-99); PLATELET COUNT 147 K/UL (150-450); RED BLOOD COUNT 4.25 M/UL (4.20-5.40); RED CELL DISTRIBUTION WIDTH 13.3 % (11.6-14.8); WHITE BLOOD COUNT 2.5 K/UL (4.8-10.8)
[2018-01-27 08:00] VITALS: BP 127/56
--- NOTE | 2018-01-27 08:24 | Consultation ---
Consult Note Consult Note pt known to me from the past. old WC injury to Lspine in 2001 with L4L5 fusion done and pain device implanted. sx relatively stable until pt had a fall at [facility] on 01/04/18. pt also injured rt knee during that fall. we had sent pt for rt knee CT (cannot have MRI) although it hasn't been done yet. Pt had xrays with us on 01/07/18. those have been re-reviewed. would rec rt knee CT also pain mgt involvement and spine involvement with Dr. Islas. This can all be coordinated as an outpt if pt is stable for d/c today per medical team. Dia Parham Jan 27, 2018 08:23
--- NOTE | 2018-01-27 08:44 | Pulmonology Progress Note ---
Assessment/Plan Assessment/Plan ASSESSMENT AND PLAN: 1. History of DVT with PE. 2. Lupus. 3. Degenerative joint disease. 4. Osteoporosis. 5. Chronic back pain. 6. Chronic constipation. 7. Chronic anemia. 8. GERD. Respiratory status is stable Will follow No active interventions Tobacco cessation O2 prn Subjective Interval Events: None Constitutional: Reports: no symptoms HEENT: Repors: no symptoms Respiratory: Reports: no symptoms Cardiovascular: Reports: no symptoms Gastrointestinal/Abdominal: Reports: no symptoms Genitourinary: Reports: no symptoms Allergies: Coded Allergies: AMOXICILLIN (Verified Allergy, Unknown, RASH, 06/29/14) CORTISONE (Verified Allergy, Unknown, 06/29/14) KETOROLAC (Verified Allergy, Unknown, 06/29/14) PENICILLINS (Verified Allergy, Unknown, 06/29/14) Objective Last 24 Hour Vital Signs Date Time Temp Pulse Resp B/P (MAP) Pulse Ox O2 Delivery O2 Flow Rate FiO2 01/27/18 08:00 97.5 69 18 127/56 98 Room Air 97.5 01/27/18 07:35 73 18 Room Air 21 01/27/18 04:00 97.8 76 18 128/60 98 Room Air 97.8 01/27/18 00:00 98.1 66 18 134/61 99 Room Air 98.1 01/26/18 20:48 72 139/65 01/26/18 20:20 100 Room Air 21 01/26/18 20:20 70 18 Room Air 21 01/26/18 20:20 Room Air 21 01/26/18 20:00 97.9 72 18 139/65 98 Room Air 97.9 01/26/18 16:00 97.3 74 20 133/61 100 Room Air 97.3 01/26/18 15:48 96.4 01/26/18 14:49 96.4 01/26/18 12:00 96.4 86 18 142/66 100 Room Air 96.4 Intake and Output 01/26/18 01/27/18 19:00 07:00 Intake Total 350 ml 480 ml Balance 350 ml 480 ml Intake Oral 350 ml 480 ml # Voids 2 2 General Appearance: no acute distress HEENT: normocephalic Respiratory/Chest: chest wall non-tender, lungs clear Cardiovascular: normal peripheral pulses, normal rate Laboratory Tests 01/27/18 05:10: White Blood Count 2.5L, Red Blood Count 4.25, Hemoglobin 12.5, Hematocrit 37.1, Mean Corpuscular Volume 87, Mean Corpuscular Hemoglobin 29.5, Mean Corpuscular Hemoglobin Concent 33.8, Red Cell Distribution Width 13.3, Platelet Count 147L, Mean Platelet Volume 8.4, Neutrophils (%) (Auto) , Lymphocytes (%) (Auto) , Monocytes (%) (Auto) , Eosinophils (%) (Auto) , Basophils (%) (Auto) , Neutrophils % (Manual) [Pending], Lymphocytes % (Manual) [Pending], Platelet Estimate [Pending], Platelet Morphology [Pending], Sodium Level [Pending], Potassium Level [Pending], Chloride Level [Pending], Carbon Dioxide Level [ Pending], Blood Urea Nitrogen [Pending], Creatinine [Pending], Estimat Glomerular Filtration Rate [Pending], Glucose Level [Pending], Calcium Level [ Pending] Current Medications Medications (Trade) Dose Ordered Sig/Alexys Route PRN Reason Start Time Stop Time Status Last Admin Dose Admin Acetaminophen (Tylenol) 650 mg Q4H PRN ORAL Mild Pain (Pain Scale 1-3) 01/24/18 16:30 02/22/18 16:29 Acetaminophen (Tylenol) 650 mg Q4H PRN ORAL fever 01/24/18 16:30 02/22/18 16:29 Acetaminophen (Tylenol) 650 mg Q4H PRN RECTAL Mild Pain (Pain Scale 1-3) 01/24/18 16:30 02/22/18 16:29 Acetaminophen (Tylenol) 650 mg Q4H PRN RECTAL fever 01/24/18 16:30 02/22/18 16:29 Albuterol/ Ipratropium (Albuterol/ Ipratropium) 3 ml Q4H PRN HHN Shortness of Breath 01/24/18 16:30 01/28/18 16:29 Amlodipine Besylate (Norvasc) 5 mg Q12HR ORAL 01/24/18 21:00 02/22/18 20:59 01/26/18 20:48 Atorvastatin Calcium (Lipitor) 10 mg BEDTIME ORAL 01/24/18 21:00 02/22/18 20:59 01/26/18 20:48 Bisacodyl (Dulcolax) 10 mg HSPRN PRN RECTAL Constipation 01/24/18 21:00 02/22/18 20:59 Chlorhexidine Gluconate (Merari-Hex 2%) 1 applic DAILY@2000 TOPIC 01/24/18 20:00 02/23/18 19:59 01/26/18 20:48 Dextrose (Dextrose 50%) 25 ml STAT PRN IV Hypoglycemia 01/24/18 16:30 02/22/18 16:29 Dextrose (Dextrose 50%) 50 ml STAT PRN IV Hypoglycemia 01/24/18 16:30 02/22/18 16:29 Docusate Sodium (Colace) 100 mg EVERY 12 HOURS ORAL 01/24/18 21:00 02/22/18 20:59 01/26/18 20:49 Gabapentin (Neurontin) 300 mg Q8HR ORAL 01/24/18 22:00 02/22/18 21:59 01/27/18 05:45 Hydromorphone HCl (Dilaudid) 4 mg Q6H PRN ORAL Severe Pain (Pain Scale 7-10) 01/24/18 18:11 01/30/18 18:10 01/27/18 05:04 Insulin Aspart (NovoLOG) BEFORE MEALS AND HS SUBQ 01/24/18 16:30 02/23/18 11:29 01/27/18 06:30 Methocarbamol (Robaxin) 750 mg Q8H PRN ORAL muscle spasms 01/24/18 16:30 02/22/18 16:29 01/25/18 10:41 Nateglinide (Starlix) 60 mg TIAC ORAL 01/27/18 06:30 02/26/18 06:29 01/27/18 06:28 Ondansetron HCl (Zofran) 4 mg Q6H PRN IVP Nausea & Vomiting 01/24/18 18:11 02/22/18 18:10 01/27/18 00:15 Polyethylene Glycol (Miralax) 17 gm BEDTIME ORAL 01/25/18 21:00 02/24/18 20:59 01/26/18 20:49 Polyethylene Glycol (Miralax) 17 gm HSPRN PRN ORAL Constipation 01/24/18 21:00 02/22/18 20:59 01/24/18 21:37 Rivaroxaban (Xarelto) 20 mg QPM@1800 ORAL 01/24/18 18:00 02/22/18 19:59 01/26/18 17:07 Sitagliptin Phosphate (Januvia) 50 mg ACBREAKFAST ORAL 01/27/18 06:30 02/26/18 06:29 01/27/18 06:28 Trazodone HCl (Desyrel) 50 mg BEDTIME PRN ORAL INSOMNIA 01/24/18 21:00 02/23/18 14:29 01/25/18 21:32 Miko Hernández MD Jan 27, 2018 08:44
[2018-01-27 08:58] LABS: ANION GAP 7 mmol/L (5-15); BLOOD UREA NITROGEN 16 mg/dL (7-18); CALCIUM 8.8 MG/DL (8.5-10.1); CARBON DIOXIDE 29 MMOL/L (21-32); CHLORIDE 105 MMOL/L (98-107); CREATININE 1.1 MG/DL (0.55-1.30); POTASSIUM 4.3 MMOL/L (3.5-5.1); SODIUM 141 MMOL/L (136-145)
[2018-01-27] MEDS ORDERED: HYDROmorphone 2mg tab ORAL SCH (09:35)
--- NOTE | 2018-01-27 10:32 | Diagnostic Imaging Report ---
Indication: Knee pain. History of trauma Technique: Continuous helical imaging of the right knee was performed in the transaxial plane. Coronal 2-D reformatted images were also generated. Study obtained in a Siemens Sensation [address] total DLP: 319.59 mGycm CTD/vol: 15.26 mGy Comparison: None Findings: There is no evidence of an acute fracture or significant malalignment identified on this examination. There is a moderate joint effusion identified. Soft tissues are unremarkable. There is generalized narrowing of the joint space with marginal spur formation consistent with arthrosis. Impression: No acute fracture. Moderate joint effusion. Osteoarthrosis The CT scanner at [facility] is accredited by the [employer] and the scans are performed using dose optimization techniques as appropriate to a performed exam including Automatic Exposure control.
--- NOTE | 2018-01-27 10:47 | GI Progress Note ---
Assessment/Plan Problems: (1) Acute on chronic abd pain (2) DM2 (diabetes mellitus, type 2) ICD Codes: E11.9 - Type 2 diabetes mellitus without complications SNOMED: 39579197 (3) Abdominal pain Qualifiers: Qualified Codes: R10.13 - Epigastric pain (4) Chronic constipation ICD Codes: K59.09 - Other constipation SNOMED: 119261754 (5) Anemia ICD Codes: D64.9 - Anemia, unspecified SNOMED: 068338386 Status: stable Status Narrative Discussed with Dr. Victoria. Assessment/Plan no anemia symptomatic treatment bowel regime >> colace + miralax, add Dulcolax prn zofran prn ppi PT evaluation fu labs outpatient colonoscopy The patient was seen and examined at bedside and all new and available data was reviewed in the patients chart. I agree with the above findings, impression and plan. (Patient seen earlier today. Signature stamp does not reflect patient encounter time.). - Bhargav Victoria MD Subjective Subjective abdominal pain improved Objective Last 24 Hour Vital Signs Date Time Temp Pulse Resp B/P (MAP) Pulse Ox O2 Delivery O2 Flow Rate FiO2 01/27/18 09:05 69 127/56 01/27/18 08:00 97.5 69 18 127/56 98 Room Air 97.5 01/27/18 07:35 73 18 Room Air 21 01/27/18 04:00 97.8 76 18 128/60 98 Room Air 97.8 01/27/18 00:00 98.1 66 18 134/61 99 Room Air 98.1 01/26/18 20:48 72 139/65 01/26/18 20:20 100 Room Air 21 01/26/18 20:20 70 18 Room Air 21 01/26/18 20:20 Room Air 21 01/26/18 20:00 97.9 72 18 139/65 98 Room Air 97.9 01/26/18 16:00 97.3 74 20 133/61 100 Room Air 97.3 01/26/18 15:48 96.4 01/26/18 14:49 96.4 01/26/18 12:00 96.4 86 18 142/66 100 Room Air 96.4 Intake and Output 01/26/18 01/27/18 19:00 07:00 Intake Total 350 ml 480 ml Balance 350 ml 480 ml Intake Oral 350 ml 480 ml # Voids 2 2 Laboratory Tests Test 01/27/18 05:10 White Blood Count 2.5 K/UL (4.8-10.8) L Red Blood Count 4.25 M/UL (4.20-5.40) Hemoglobin 12.5 G/DL (12.0-16.0) Hematocrit 37.1 % (37.0-47.0) Mean Corpuscular Volume 87 FL (80-99) Mean Corpuscular Hemoglobin 29.5 PG (27.0-31.0) Mean Corpuscular Hemoglobin Concent 33.8 G/DL (32.0-36.0) Red Cell Distribution Width 13.3 % (11.6-14.8) Platelet Count 147 K/UL (150-450) L Mean Platelet Volume 8.4 FL (6.5-10.1) Neutrophils (%) (Auto) % (45.0-75.0) Lymphocytes (%) (Auto) % (20.0-45.0) Monocytes (%) (Auto) % (1.0-10.0) Eosinophils (%) (Auto) % (0.0-3.0) Basophils (%) (Auto) % (0.0-2.0) Neutrophils % (Manual) Pending Lymphocytes % (Manual) Pending Platelet Estimate Pending Platelet Morphology Pending Sodium Level 141 MMOL/L (136-145) Potassium Level 4.3 MMOL/L (3.5-5.1) Chloride Level 105 MMOL/L (98-107) Carbon Dioxide Level 29 MMOL/L (21-32) Anion Gap 7 mmol/L (5-15) Blood Urea Nitrogen 16 mg/dL (7-18) Creatinine 1.1 MG/DL (0.55-1.30) Estimat Glomerular Filtration Rate mL/min (>60) Glucose Level 94 MG/DL (74-106) Calcium Level 8.8 MG/DL (8.5-10.1) Height (Feet): 5 Height (Inches): 5.00 Weight (Pounds): 104 General Appearance: WD/WN, no apparent distress, alert Cardiovascular: normal rate Respiratory/Chest: normal breath sounds, no respiratory distress Abdominal Exam: normal bowel sounds, non tender, soft Extremities: normal range of motion, non-tender Henry,Yenifer-Lawrence [employer] Jan 27, 2018 10:47
--- NOTE | 2018-01-27 10:53 | General Progress Note ---
Assessment/Plan Status: stable Assessment/Plan # Leukopenia, likely related to hepatic congestion with splenomegaly. --> hepatitis panel and HIV are negative. --> ultrasound of the abdomen shows no significant abnormalities. --> cont abx w/ ID service # Anemia due to underlying chronic disease. --> Closely monitor. --> anemia w/u reviewed. Will trend daily. --> hgb goal >7 # Deep venous thrombosis and pulmonary embolism history, --> currently resolved. --> Continue anticoagulation with Xarelto. # Abdominal pain, history of recurrent episodes, history of chronic pancreatitis with nausea. --> US shows no significant abnormalities --> amylase 102, lipase 152. Within normal range # Degenerative joint disease. # Osteoporosis. # Chronic back pain. # Gastroesophageal reflux disease. Subjective Date patient seen: Jan 27, 2018 ROS Limited/Unobtainable: Yes Gastrointestinal/Abdominal: Reports: abdominal pain Allergies: Coded Allergies: AMOXICILLIN (Verified Allergy, Unknown, RASH, 06/29/14) CORTISONE (Verified Allergy, Unknown, 06/29/14) KETOROLAC (Verified Allergy, Unknown, 06/29/14) PENICILLINS (Verified Allergy, Unknown, 06/29/14) All Systems: reviewed and negative except above Subjective Abd US shows no significant abnormalities. Pt cont to c/o af abd pain. CT of R knee shows no acute fx. Vitals are stable, no sob. Objective Last 24 Hour Vital Signs Date Time Temp Pulse Resp B/P (MAP) Pulse Ox O2 Delivery O2 Flow Rate FiO2 01/27/18 09:05 69 127/56 01/27/18 08:00 97.5 69 18 127/56 98 Room Air 97.5 01/27/18 07:35 73 18 Room Air 21 01/27/18 04:00 97.8 76 18 128/60 98 Room Air 97.8 01/27/18 00:00 98.1 66 18 134/61 99 Room Air 98.1 01/26/18 20:48 72 139/65 01/26/18 20:20 100 Room Air 21 01/26/18 20:20 70 18 Room Air 21 01/26/18 20:20 Room Air 21 01/26/18 20:00 97.9 72 18 139/65 98 Room Air 97.9 01/26/18 16:00 97.3 74 20 133/61 100 Room Air 97.3 6/26/18 15:48 96.4 01/26/18 14:49 96.4 01/26/18 12:00 96.4 86 18 142/66 100 Room Air 96.4 Intake and Output 01/26/18 01/27/18 19:00 07:00 Intake Total 350 ml 480 ml Balance 350 ml 480 ml Intake Oral 350 ml 480 ml # Voids 2 2 Laboratory Tests 01/27/18 05:10: White Blood Count 2.5L, Red Blood Count 4.25, Hemoglobin 12.5, Hematocrit 37.1, Mean Corpuscular Volume 87, Mean Corpuscular Hemoglobin 29.5, Mean Corpuscular Hemoglobin Concent 33.8, Red Cell Distribution Width 13.3, Platelet Count 147L, Mean Platelet Volume 8.4, Neutrophils (%) (Auto) , Lymphocytes (%) (Auto) , Monocytes (%) (Auto) , Eosinophils (%) (Auto) , Basophils (%) (Auto) , Neutrophils % (Manual) [Pending], Lymphocytes % (Manual) [Pending], Platelet Estimate [Pending], Platelet Morphology [Pending], Sodium Level 141, Potassium Level 4.3, Chloride Level 105, Carbon Dioxide Level 29, Anion Gap 7, Blood Urea Nitrogen 16, Creatinine 1.1, Estimat Glomerular Filtration Rate , Glucose Level 94, Calcium Level 8.8 Height (Feet): 5 Height (Inches): 5.00 Weight (Pounds): 104 General Appearance: no apparent distress, alert Neck: normal alignment, supple Cardiovascular: normal peripheral pulses Respiratory/Chest: no respiratory distress Abdomen: no mass, tender Adolfo Cardona MD Jan 27, 2018 10:53
[2018-01-27 11:52] VITALS: BP 130/65
--- NOTE | 2018-01-27 12:44 | General Progress Note ---
Assessment/Plan Assessment/Plan Anxiety d/o cognitive impairment -cont current meds -trazodone 50mg qhs Subjective Neurologic/Psychiatric: Reports: anxiety, depressed, emotional problems Allergies: Coded Allergies: AMOXICILLIN (Verified Allergy, Unknown, RASH, 06/29/14) CORTISONE (Verified Allergy, Unknown, 06/29/14) KETOROLAC (Verified Allergy, Unknown, 06/29/14) PENICILLINS (Verified Allergy, Unknown, 06/29/14) Objective Last 24 Hour Vital Signs Date Time Temp Pulse Resp B/P (MAP) Pulse Ox O2 Delivery O2 Flow Rate FiO2 01/27/18 11:52 97.2 80 18 130/65 100 97.2 01/27/18 09:05 69 127/56 01/27/18 08:00 97.5 69 18 127/56 98 Room Air 97.5 01/27/18 07:35 73 18 Room Air 21 01/27/18 04:00 97.8 76 18 128/60 98 Room Air 97.8 01/27/18 00:00 98.1 66 18 134/61 99 Room Air 98.1 01/26/18 20:48 72 139/65 01/26/18 20:20 100 Room Air 21 01/26/18 20:20 70 18 Room Air 21 01/26/18 20:20 Room Air 21 01/26/18 20:00 97.9 72 18 139/65 98 Room Air 97.9 01/26/18 16:00 97.3 74 20 133/61 100 Room Air 97.3 01/26/18 15:48 96.4 01/26/18 14:49 96.4 Intake and Output 01/26/18 01/27/18 19:00 07:00 Intake Total 350 ml 480 ml Balance 350 ml 480 ml Intake Oral 350 ml 480 ml # Voids 2 2 Laboratory Tests 01/27/18 05:10: White Blood Count 2.5L, Red Blood Count 4.25, Hemoglobin 12.5, Hematocrit 37.1, Mean Corpuscular Volume 87, Mean Corpuscular Hemoglobin 29.5, Mean Corpuscular Hemoglobin Concent 33.8, Red Cell Distribution Width 13.3, Platelet Count 147L, Mean Platelet Volume 8.4, Neutrophils (%) (Auto) , Lymphocytes (%) (Auto) , Monocytes (%) (Auto) , Eosinophils (%) (Auto) , Basophils (%) (Auto) , Differential Total Cells Counted 100, Neutrophils % (Manual) 45, Lymphocytes % ( Manual) 38, Monocytes % (Manual) 14H, Eosinophils % (Manual) 3, Basophils % ( Manual) 0, Band Neutrophils 0, Platelet Estimate DecreasedL, Platelet Morphology Normal, Red Blood Cell Morphology Normal, Sodium Level 141, Potassium Level 4.3, Chloride Level 105, Carbon Dioxide Level 29, Anion Gap 7, Blood Urea Nitrogen 16, Creatinine 1.1, Estimat Glomerular Filtration Rate , Glucose Level 94, Calcium Level 8.8 Height (Feet): 5 Height (Inches): 5.00 Weight (Pounds): 104 General Appearance: no apparent distress, alert Neurologic: oriented x 3, responsive Tiburcio Horn M.D. Jan 27, 2018 12:44
--- NOTE | 2018-01-27 13:32 | Consultation ---
Consult Note Consult Note Ct reviewed: Moderate arthritis. no fracture given recently labile and high blood glucose, would not recommend cortisone injection. pt cannot have NSAIDs due to xarelto. would recommend PT, ice, and pain mgt eval and treat. pt also recommended to see Dr. Diony Islas for her lumbar spine. can f/u with us as an outpt for a cortisone injection rt knee if and when her glucose is better and more stably controlled. Dia Parham Jan 27, 2018 13:32
--- NOTE | 2018-01-27 14:04 | General Surgery Progress Note ---
General Surgery-Progress Note Subjective Symptoms: pain absent, tolerating diet, passing flatus, BM Additional Comments improving Objective Last 24 Hour Vital Signs Date Time Temp Pulse Resp B/P (MAP) Pulse Ox O2 Delivery O2 Flow Rate FiO2 01/27/18 11:52 97.2 80 18 130/65 100 97.2 01/27/18 09:05 69 127/56 01/27/18 08:00 97.5 69 18 127/56 98 Room Air 97.5 01/27/18 07:35 73 18 Room Air 21 01/27/18 04:00 97.8 76 18 128/60 98 Room Air 97.8 01/27/18 00:00 98.1 66 18 134/61 99 Room Air 98.1 01/26/18 20:48 72 139/65 01/26/18 20:20 100 Room Air 21 01/26/18 20:20 70 18 Room Air 21 01/26/18 20:20 Room Air 21 01/26/18 20:00 97.9 72 18 139/65 98 Room Air 97.9 01/26/18 16:00 97.3 74 20 133/61 100 Room Air 97.3 01/26/18 15:48 96.4 01/26/18 14:49 96.4 I&O Intake and Output 01/26/18 01/27/18 19:00 07:00 Intake Total 350 ml 480 ml Balance 350 ml 480 ml Intake Oral 350 ml 480 ml # Voids 2 2 Drains: none Cardiovascular: RSR Respiratory: clear Abdomen: soft, flat, non-tender, present bowel sounds Extremities: no cyanosis Laboratory Tests Test 01/27/18 05:10 White Blood Count 2.5 K/UL (4.8-10.8) L Red Blood Count 4.25 M/UL (4.20-5.40) Hemoglobin 12.5 G/DL (12.0-16.0) Hematocrit 37.1 % (37.0-47.0) Mean Corpuscular Volume 87 FL (80-99) Mean Corpuscular Hemoglobin 29.5 PG (27.0-31.0) Mean Corpuscular Hemoglobin Concent 33.8 G/DL (32.0-36.0) Red Cell Distribution Width 13.3 % (11.6-14.8) Platelet Count 147 K/UL (150-450) L Mean Platelet Volume 8.4 FL (6.5-10.1) Neutrophils (%) (Auto) % (45.0-75.0) Lymphocytes (%) (Auto) % (20.0-45.0) Monocytes (%) (Auto) % (1.0-10.0) Eosinophils (%) (Auto) % (0.0-3.0) Basophils (%) (Auto) % (0.0-2.0) Differential Total Cells Counted 100 Neutrophils % (Manual) 45 % (45-75) Lymphocytes % (Manual) 38 % (20-45) Monocytes % (Manual) 14 % (1-10) H Eosinophils % (Manual) 3 % (0-3) Basophils % (Manual) 0 % (0-2) Band Neutrophils 0 % (0-8) Platelet Estimate Decreased L Platelet Morphology Normal Red Blood Cell Morphology Normal Sodium Level 141 MMOL/L (136-145) Potassium Level 4.3 MMOL/L (3.5-5.1) Chloride Level 105 MMOL/L (98-107) Carbon Dioxide Level 29 MMOL/L (21-32) Anion Gap 7 mmol/L (5-15) Blood Urea Nitrogen 16 mg/dL (7-18) Creatinine 1.1 MG/DL (0.55-1.30) Estimat Glomerular Filtration Rate mL/min (>60) Glucose Level 94 MG/DL (74-106) Calcium Level 8.8 MG/DL (8.5-10.1) Plan Problems: (1) Abdominal pain Assessment & Plan: 72F with abdominal pain. mid abdomen/epigastric cramping. history of prior episodes which resolve without intervention. currently pain improved. +nausea intermittent, no emesis. labs reviewed. exam fairly benign. KUB okay. labs okay -no acute surgical intervention needed at this time. -diet as tolerated -thank you for this consultation. will follow with recs. Demarcus Ramirez Jan 27, 2018 14:04
--- NOTE | 2018-01-27 15:26 | Cardiology Report ---
APPROVED REPORT EKG Measurement Heart [id number] Normal sinus rhythm Normal ECG
[2018-01-27 15:52] VITALS: BP 143/63
--- NOTE | 2018-01-27 17:01 | Consultation ---
DATE OF CONSULTATION: 01/27/2018 ORTHOPEDIC CONSULTATION CONSULTING PHYSICIAN: Wilner Oliver M.D. HISTORY OF PRESENT ILLNESS: The patient is a very pleasant, 72-year-old female, who is known to me from the past. We recently saw her in our office as an outpatient on 01/07/2018. The patient has a history of a worker's comp injury in 2001 for which she underwent a L4-L5 fusion as well as pain implantation device placed in 2003. After this event, she was relatively stable with occasional pain in her back that she was doing quite well. Unfortunately, on 01/04/2018 the patient had a fall in a [employer] parking lot due to a pothole. She fell and re-injured her back as well as injury to her right knee. Since that fall she has had to go on a walker. She has had significant right knee pain and swelling. She has had worsening upper back pain. She came to see me in the office on 01/07/2018. We evaluated her with x-rays. At that time, we recommended spine speciality evaluation as well as pain management evaluation and CT scan of the right knee. The patient cannot have MRI due to her implanted pain device. Up to this point, the patient has not had time to get the CT scan done and she is now admitted for hyperglycemia and abdominal upset. She continues to have knee pain. She continues to have back pain. She has continued to get around with a walker. Orthopedic consult has been called for evaluation while she is inpatient. PAST MEDICAL HISTORY: History of stroke, high blood pressure, chronic back pain and diabetes. PAST SURGICAL HISTORY: She has had a cholecystectomy and appendectomy, hysterectomy, laminectomy and fusion L4-L5 in 2001. MEDICATIONS: Please see chart. ALLERGIES: To penicillin. SOCIAL HISTORY: She is a . She ambulates with a walker currently, although previously was ambulating quite independently. She does live alone. She is retired. PHYSICAL EXAMINATION: GENERAL: She is a very pleasant woman. She is cooperative with examination. She denies significant effusion of the right knee today, although she does have tenderness. She has full extension and about 90 degrees of flexion with pain. She is neurovascularly intact. BACK: Examination of the lumbar spine, she has healed incision posteriorly. She has some tenderness to palpation and some spasming. She has stiffness and pain on flexion and extension. She is getting around with a walker. LABORATORY AND DIAGNOSTIC DATA: X-ray from our office were reviewed. I do not see any x-rays done here during her admission however prior x-rays that I have opportunity to review did not show any major arthritic changes of the right knee and there was no obvious right knee fractures. Lumbar spine x-ray showed an L4-L5 fusion with pedicle screws that were intact, but there has been some progressive wear of L3-L4 and L5-S1. IMPRESSION: 1. Right knee effusion with stiffness after a fall, CT scan is recommended. 2. Lumbar spine acute pain and right-sided leg pain following a fall with a history of back surgery. The patient is recommended to see a crop pest control specialist and Pain Management. 3. History of L4-L5 fusion in 2001 from a prior workmen's Comp injury with pain device implanted in 2003. Again spine specialty and pain management is recommended. DISCUSSION: At this time, I discussed with the patient my findings. We had discussed previously and she does agree with our continued recommendations. I will order the CT scan of the right knee, we will follow up on that. We will also recommend that she see Dr. Diony Islas, spine specialty as well as be seen by pain management physician. She is in agreement with that. She indicates she may be stable to be discharged today from medical standpoint and that is appropriate. All of these recommended treatments can be set up for her on an outpatient basis. I would recommend that she follow up with outpatient pain management physician as well as Dr. Islas. She is in agreement with that. The patient understands and agrees. All questions have been answered. Wilner Oliver M.D. Julio Foster DR: MIGUELITO JOB#: [id number] CC: SARAH
[2018-01-27] MEDS: Xarelto 10mg tab ORAL SCH (17:04)
[2018-01-27 20:00] VITALS: BP 143/67
[2018-01-27] MEDS: Docusate 100mg cap ORAL SCH (21:12)
[2018-01-27] MEDS: Dyna-Hex 2% Top Sol 2oz TOPIC SCH (21:12)
[2018-01-27] MEDS: Miralax 17gm pkt ORAL SCH (21:12)
[2018-01-27] MEDS: TraZODone 50mg tab ORAL PRN (21:46)
--- NOTE | 2018-01-27 23:10 | General Progress Note ---
Assessment/Plan Assessment/Plan chronic abdominal pain chronic back pain sp fall last week mechanical diabetes ho lupus ho hypercoagulable condition ho HTN pain control endo eval appreciated on xarelto ortho eval appreciated check imaging study dc planning Subjective Allergies: Coded Allergies: AMOXICILLIN (Verified Allergy, Unknown, RASH, 06/29/14) CORTISONE (Verified Allergy, Unknown, 06/29/14) KETOROLAC (Verified Allergy, Unknown, 06/29/14) PENICILLINS (Verified Allergy, Unknown, 06/29/14) Subjective co back pain chronic abdominal pain same no n/v ho fall back leg pain Objective Last 24 Hour Vital Signs Date Time Temp Pulse Resp B/P (MAP) Pulse Ox O2 Delivery O2 Flow Rate FiO2 01/27/18 21:13 76 143/63 01/27/18 20:00 98.5 75 18 143/67 98 98.5 01/27/18 19:50 76 18 Room Air 21 01/27/18 15:52 97.5 75 18 143/63 100 97.5 01/27/18 11:52 97.2 80 18 130/65 100 97.2 01/27/18 09:05 69 127/56 01/27/18 08:00 97.5 69 18 127/56 98 Room Air 97.5 01/27/18 07:35 73 18 Room Air 21 01/27/18 04:00 97.8 76 18 128/60 98 Room Air 97.8 01/27/18 00:00 98.1 66 18 134/61 99 Room Air 98.1 Intake and Output 01/26/18 01/27/18 19:00 07:00 Intake Total 350 ml 480 ml Balance 350 ml 480 ml Intake Oral 350 ml 480 ml # Voids 2 2 Laboratory Tests 01/27/18 05:10: White Blood Count 2.5L, Red Blood Count 4.25, Hemoglobin 12.5, Hematocrit 37.1, Mean Corpuscular Volume 87, Mean Corpuscular Hemoglobin 29.5, Mean Corpuscular Hemoglobin Concent 33.8, Red Cell Distribution Width 13.3, Platelet Count 147L, Mean Platelet Volume 8.4, Neutrophils (%) (Auto) , Lymphocytes (%) (Auto) , Monocytes (%) (Auto) , Eosinophils (%) (Auto) , Basophils (%) (Auto) , Differential Total Cells Counted 100, Neutrophils % (Manual) 45, Lymphocytes % ( Manual) 38, Monocytes % (Manual) 14H, Eosinophils % (Manual) 3, Basophils % ( Manual) 0, Band Neutrophils 0, Platelet Estimate DecreasedL, Platelet Morphology Normal, Red Blood Cell Morphology Normal, Sodium Level 141, Potassium Level 4.3, Chloride Level 105, Carbon Dioxide Level 29, Anion Gap 7, Blood Urea Nitrogen 16, Creatinine 1.1, Estimat Glomerular Filtration Rate , Glucose Level 94, Calcium Level 8.8 Height (Feet): 5 Height (Inches): 5.00 Weight (Pounds): 104 General Appearance: WD/WN, no apparent distress Cardiovascular: normal rate Respiratory/Chest: lungs clear Abdomen: soft Vito Malin MD Jan 27, 2018 23:10
[2018-01-28] VITALS: BP 136/65
[2018-01-28 04:00] VITALS: BP 135/56
[2018-01-28] MEDS: NovoLOG Insulin Flexpen SUBQ SCH ×2 (06:09→12:23)
[2018-01-28] MEDS: Nateglinide 60mg tab ORAL SCH ×2 (06:11→12:23)
[2018-01-28] MEDS: HYDROmorphone 4mg tab ORAL PRN (06:11)
[2018-01-28] MEDS: sitaGLIPtin 50mg tab ORAL SCH (06:11)
[2018-01-28 07:51] LABS: HEMATOCRIT 34.4 % (37.0-47.0); HEMOGLOBIN 11.3 G/DL (12.0-16.0); MEAN CORPUSCULAR VOLUME 87 FL (80-99); PLATELET COUNT 134 K/UL (150-450); RED BLOOD COUNT 3.94 M/UL (4.20-5.40); WHITE BLOOD COUNT 2.5 K/UL (4.8-10.8)
[2018-01-28 08:00] VITALS: BP 107/56
[2018-01-28] MEDS: Docusate 100mg cap ORAL SCH (09:00)
[2018-01-28 09:04] LABS: ALANINE AMINOTRANSFERASE 38 U/L (12-78); ALBUMIN 2.6 G/DL (3.4-5.0); ALBUMIN/GLOBULIN RATIO 0.8 (1.0-2.7); ALKALINE PHOSPHATASE 64 U/L (46-116); ANION GAP 8 mmol/L (5-15); ASPARTATE AMINO TRANSFERASE 39 U/L (15-37); BILIRUBIN,TOTAL 0.2 MG/DL (0.2-1.0); BLOOD UREA NITROGEN 17 mg/dL (7-18); CARBON DIOXIDE 24 MMOL/L (21-32); CHLORIDE 112 MMOL/L (98-107); CREATININE 0.9 MG/DL (0.55-1.30); POTASSIUM 3.4 MMOL/L (3.5-5.1); SODIUM 144 MMOL/L (136-145)
--- NOTE | 2018-01-28 09:06 | General Progress Note ---
Assessment/Plan Problem List: (1) Abdominal pain ICD Codes: R10.9 - Unspecified abdominal pain SNOMED: 10537051 (2) DM2 (diabetes mellitus, type 2) ICD Codes: E11.9 - Type 2 diabetes mellitus without complications SNOMED: 68700835 Assessment/Plan continue Starlix 60 mg ac tid continue Januvia 50 mg daily NISS no need for insulin after discharge Subjective Allergies: Coded Allergies: AMOXICILLIN (Verified Allergy, Unknown, RASH, 06/29/14) CORTISONE (Verified Allergy, Unknown, 06/29/14) KETOROLAC (Verified Allergy, Unknown, 06/29/14) PENICILLINS (Verified Allergy, Unknown, 06/29/14) All Systems: reviewed and negative except above Subjective events noted Objective Last 24 Hour Vital Signs Date Time Temp Pulse Resp B/P (MAP) Pulse Ox O2 Delivery O2 Flow Rate FiO2 01/28/18 08:00 97.8 81 18 107/56 94 97.8 01/28/18 04:00 97.5 71 18 135/56 94 97.5 01/28/18 00:00 98.2 69 18 136/65 100 98.2 01/27/18 21:13 76 143/63 01/27/18 20:00 98.5 75 18 143/67 98 98.5 01/27/18 19:50 76 18 Room Air 21 01/27/18 15:52 97.5 75 18 143/63 100 97.5 01/27/18 11:52 97.2 80 18 130/65 100 97.2 Intake and Output 01/27/18 01/28/18 19:00 07:00 Intake Total 600 ml 350 ml Balance 600 ml 350 ml Intake Oral 600 ml 350 ml # Voids 4 2 # Bowel Movements 2 Laboratory Tests 01/28/18 07:10: White Blood Count 2.5L, Red Blood Count 3.94L, Hemoglobin 11.3L, Hematocrit 34.4L, Mean Corpuscular Volume 87, Mean Corpuscular Hemoglobin 28.7, Mean Corpuscular Hemoglobin Concent 32.9, Red Cell Distribution Width 13.0, Platelet Count 134L, Mean Platelet Volume 7.8, Neutrophils (%) (Auto) , Lymphocytes (%) ( Auto) , Monocytes (%) (Auto) , Eosinophils (%) (Auto) , Basophils (%) (Auto) , Differential Total Cells Counted 100, Neutrophils % (Manual) 56, Lymphocytes % ( Manual) 25, Monocytes % (Manual) 15H, Eosinophils % (Manual) 4H, Basophils % ( Manual) 0, Band Neutrophils 0, Platelet Estimate DecreasedL, Platelet Morphology Normal, Hypochromasia 1+, Anisocytosis 1+, Sodium Level [Pending], Potassium Level [Pending], Chloride Level [Pending], Carbon Dioxide Level [ Pending], Blood Urea Nitrogen [Pending], Creatinine [Pending], Estimat Glomerular Filtration Rate [Pending], Glucose Level [Pending], Calcium Level [ Pending], Total Bilirubin [Pending], Aspartate Amino Transf (AST/SGOT) [Pending] , Alanine Aminotransferase (ALT/SGPT) [Pending], Alkaline Phosphatase [Pending] , Total Protein [Pending], Albumin [Pending], Globulin [Pending] Height (Feet): 5 Height (Inches): 5.00 Weight (Pounds): 104 General Appearance: no apparent distress Neck: normal alignment Cardiovascular: regular rhythm Respiratory/Chest: lungs clear Abdomen: normal bowel sounds Pelvis: normal external exam Objective Current Medications Medications (Trade) Dose Ordered Sig/Alexys Route PRN Reason Start Time Stop Time Status Last Admin Dose Admin Acetaminophen (Tylenol) 650 mg Q4H PRN ORAL Mild Pain (Pain Scale 1-3) 01/24/18 16:30 02/22/18 16:29 Acetaminophen (Tylenol) 650 mg Q4H PRN ORAL fever 01/24/18 16:30 02/22/18 16:29 Acetaminophen (Tylenol) 650 mg Q4H PRN RECTAL Mild Pain (Pain Scale 1-3) 01/24/18 16:30 02/22/18 16:29 Acetaminophen (Tylenol) 650 mg Q4H PRN RECTAL fever 01/24/18 16:30 02/22/18 16:29 Albuterol/ Ipratropium (Albuterol/ Ipratropium) 3 ml Q4H PRN HHN Shortness of Breath 01/24/18 16:30 01/28/18 16:29 Amlodipine Besylate (Norvasc) 5 mg Q12HR ORAL 01/24/18 21:00 02/22/18 20:59 01/27/18 21:13 Atorvastatin Calcium (Lipitor) 10 mg BEDTIME ORAL 01/24/18 21:00 02/22/18 20:59 01/27/18 21:13 Bisacodyl (Dulcolax) 10 mg HSPRN PRN RECTAL Constipation 01/24/18 21:00 02/22/18 20:59 Chlorhexidine Gluconate (Merari-Hex 2%) 1 applic DAILY@2000 TOPIC 01/24/18 20:00 02/23/18 19:59 01/27/18 21:12 Dextrose (Dextrose 50%) 25 ml STAT PRN IV Hypoglycemia 01/24/18 16:30 02/22/18 16:29 Dextrose (Dextrose 50%) 50 ml STAT PRN IV Hypoglycemia 01/24/18 16:30 02/22/18 16:29 Docusate Sodium (Colace) 100 mg EVERY 12 HOURS ORAL 01/24/18 21:00 02/22/18 20:59 01/27/18 21:12 Gabapentin (Neurontin) 300 mg Q8HR ORAL 01/24/18 22:00 02/22/18 21:59 01/28/18 06:11 Hydromorphone HCl (Dilaudid) 4 mg Q6H PRN ORAL Severe Pain (Pain Scale 7-10) 01/24/18 18:11 01/30/18 18:10 01/28/18 06:11 Insulin Aspart (NovoLOG) BEFORE MEALS AND HS SUBQ 01/24/18 16:30 02/23/18 11:29 01/27/18 21:14 Methocarbamol (Robaxin) 750 mg Q8H PRN ORAL muscle spasms 01/24/18 16:30 02/22/18 16:29 01/25/18 10:41 Nateglinide (Starlix) 60 mg TIAC ORAL 01/27/18 06:30 02/26/18 06:29 01/28/18 06:11 Ondansetron HCl (Zofran) 4 mg Q6H PRN IVP Nausea & Vomiting 01/24/18 18:11 02/22/18 18:10 01/27/18 00:15 Polyethylene Glycol (Miralax) 17 gm BEDTIME ORAL 01/25/18 21:00 02/24/18 20:59 01/27/18 21:12 Polyethylene Glycol (Miralax) 17 gm HSPRN PRN ORAL Constipation 01/24/18 21:00 02/22/18 20:59 01/24/18 21:37 Rivaroxaban (Xarelto) 20 mg QPM@1800 ORAL 01/24/18 18:00 02/22/18 19:59 01/27/18 17:04 Sitagliptin Phosphate (Januvia) 50 mg ACBREAKFAST ORAL 01/27/18 06:30 02/26/18 06:29 01/28/18 06:11 Trazodone HCl (Desyrel) 50 mg BEDTIME PRN ORAL INSOMNIA 01/24/18 21:00 02/23/18 14:29 01/27/18 21:46 Item Value Date Time Bedside Blood Glucose 98 mg/dl 01/28/18 0609 Bedside Blood Glucose 186 mg/dl H 01/27/18 2114 Bedside Blood Glucose 124 mg/dl H 01/27/18 1705 Bedside Blood Glucose 111 mg/dl 01/27/18 1212 Bedside Blood Glucose 112 mg/dl 01/27/18 0630 Aníbal Hernández MD Jan 28, 2018 09:06
[2018-01-28 09:07] LABS: CALCIUM 6.7 MG/DL (8.5-10.1)
[2018-01-28 09:18] VITALS: BP 107/56
[2018-01-28] MEDS ORDERED: JANUVIA25 MG ORAL (10:18)
[2018-01-28] MEDS ORDERED: STARLIX60 MG ORAL ×2 (10:18→10:20)
[2018-01-28] MEDS ORDERED: TRAZODONE HCL150 MG ORAL (10:20)
--- NOTE | 2018-01-28 10:20 | GI Progress Note ---
Assessment/Plan Problems: (1) Acute on chronic abd pain (2) DM2 (diabetes mellitus, type 2) ICD Codes: E11.9 - Type 2 diabetes mellitus without complications SNOMED: 59278136 (3) Abdominal pain Qualifiers: Qualified Codes: R10.13 - Epigastric pain (4) Chronic constipation ICD Codes: K59.09 - Other constipation SNOMED: 223615357 (5) Anemia ICD Codes: D64.9 - Anemia, unspecified SNOMED: 878895235 Status: stable Status Narrative Discussed with Dr. Victoria. Assessment/Plan no anemia okay for DC per GI standpoint symptomatic treatment bowel regime >> colace + miralax, add Dulcolax prn zofran prn ppi PT evaluation fu labs outpatient colonoscopy The patient was seen and examined at bedside and all new and available data was reviewed in the patients chart. I agree with the above findings, impression and plan. (Patient seen earlier today. Signature stamp does not reflect patient encounter time.). - Bhargav Victoria MD Subjective Subjective abdominal pain improved Objective Last 24 Hour Vital Signs Date Time Temp Pulse Resp B/P (MAP) Pulse Ox O2 Delivery O2 Flow Rate FiO2 01/28/18 09:18 81 107/56 01/28/18 08:00 97.8 81 18 107/56 94 97.8 01/28/18 04:00 97.5 71 18 135/56 94 97.5 01/28/18 00:00 98.2 69 18 136/65 100 98.2 01/27/18 21:13 76 143/63 01/27/18 20:00 98.5 75 18 143/67 98 98.5 01/27/18 19:50 76 18 Room Air 21 01/27/18 15:52 97.5 75 18 143/63 100 97.5 01/27/18 11:52 97.2 80 18 130/65 100 97.2 Intake and Output 01/27/18 01/28/18 19:00 07:00 Intake Total 600 ml 350 ml Balance 600 ml 350 ml Intake Oral 600 ml 350 ml # Voids 4 2 # Bowel Movements 2 Laboratory Tests Test 01/28/18 07:10 White Blood Count 2.5 K/UL (4.8-10.8) L Red Blood Count 3.94 M/UL (4.20-5.40) L Hemoglobin 11.3 G/DL (12.0-16.0) L Hematocrit 34.4 % (37.0-47.0) L Mean Corpuscular Volume 87 FL (80-99) Mean Corpuscular Hemoglobin 28.7 PG (27.0-31.0) Mean Corpuscular Hemoglobin Concent 32.9 G/DL (32.0-36.0) Red Cell Distribution Width 13.0 % (11.6-14.8) Platelet Count 134 K/UL (150-450) L Mean Platelet Volume 7.8 FL (6.5-10.1) Neutrophils (%) (Auto) % (45.0-75.0) Lymphocytes (%) (Auto) % (20.0-45.0) Monocytes (%) (Auto) % (1.0-10.0) Eosinophils (%) (Auto) % (0.0-3.0) Basophils (%) (Auto) % (0.0-2.0) Differential Total Cells Counted 100 Neutrophils % (Manual) 56 % (45-75) Lymphocytes % (Manual) 25 % (20-45) Monocytes % (Manual) 15 % (1-10) H Eosinophils % (Manual) 4 % (0-3) H Basophils % (Manual) 0 % (0-2) Band Neutrophils 0 % (0-8) Platelet Estimate Decreased L Platelet Morphology Normal Hypochromasia 1+ Anisocytosis 1+ Sodium Level 144 MMOL/L (136-145) Potassium Level 3.4 MMOL/L (3.5-5.1) L Chloride Level 112 MMOL/L (98-107) H Carbon Dioxide Level 24 MMOL/L (21-32) Anion Gap 8 mmol/L (5-15) Blood Urea Nitrogen 17 mg/dL (7-18) Creatinine 0.9 MG/DL (0.55-1.30) Estimat Glomerular Filtration Rate mL/min (>60) Glucose Level 84 MG/DL (74-106) Calcium Level 6.7 MG/DL (8.5-10.1) #L Total Bilirubin 0.2 MG/DL (0.2-1.0) Aspartate Amino Transf (AST/SGOT) 39 U/L (15-37) H Alanine Aminotransferase (ALT/SGPT) 38 U/L (12-78) Alkaline Phosphatase 64 U/L (46-116) Total Protein 5.9 G/DL (6.4-8.2) L Albumin 2.6 G/DL (3.4-5.0) L Globulin 3.3 g/dL Albumin/Globulin Ratio 0.8 (1.0-2.7) L Height (Feet): 5 Height (Inches): 5.00 Weight (Pounds): 104 General Appearance: WD/WN, no apparent distress, alert Cardiovascular: normal rate Respiratory/Chest: normal breath sounds, no respiratory distress Abdominal Exam: normal bowel sounds, non tender, soft Extremities: normal range of motion, non-tender Tien Henry NP Jan 28, 2018 10:20
[2018-01-28] MEDS ORDERED: Heplock Flush 100 units/ml 3 ml syr INJ SCH (11:00)
--- NOTE | 2018-01-28 12:37 | General Progress Note ---
Assessment/Plan Status: stable Assessment/Plan Anxiety d/o cognitive impairment -cont current meds -trazodone 50mg qhs Subjective Date patient seen: Jan 28, 2018 Neurologic/Psychiatric: Reports: anxiety, depressed, emotional problems Allergies: Coded Allergies: AMOXICILLIN (Verified Allergy, Unknown, RASH, 06/29/14) CORTISONE (Verified Allergy, Unknown, 06/29/14) KETOROLAC (Verified Allergy, Unknown, 06/29/14) PENICILLINS (Verified Allergy, Unknown, 06/29/14) Objective Last 24 Hour Vital Signs Date Time Temp Pulse Resp B/P (MAP) Pulse Ox O2 Delivery O2 Flow Rate FiO2 01/28/18 09:18 81 107/56 01/28/18 08:40 74 18 Room Air 21 01/28/18 08:00 97.8 81 18 107/56 94 97.8 01/28/18 04:00 97.5 71 18 135/56 94 97.5 01/28/18 00:00 98.2 69 18 136/65 100 98.2 01/27/18 21:13 76 143/63 01/27/18 20:00 98.5 75 18 143/67 98 98.5 01/27/18 19:50 76 18 Room Air 21 01/27/18 15:52 97.5 75 18 143/63 100 97.5 Intake and Output 01/27/18 01/28/18 19:00 07:00 Intake Total 600 ml 350 ml Balance 600 ml 350 ml Intake Oral 600 ml 350 ml # Voids 4 2 # Bowel Movements 2 Laboratory Tests 01/28/18 07:10: White Blood Count 2.5L, Red Blood Count 3.94L, Hemoglobin 11.3L, Hematocrit 34.4L, Mean Corpuscular Volume 87, Mean Corpuscular Hemoglobin 28.7, Mean Corpuscular Hemoglobin Concent 32.9, Red Cell Distribution Width 13.0, Platelet Count 134L, Mean Platelet Volume 7.8, Neutrophils (%) (Auto) , Lymphocytes (%) ( Auto) , Monocytes (%) (Auto) , Eosinophils (%) (Auto) , Basophils (%) (Auto) , Differential Total Cells Counted 100, Neutrophils % (Manual) 56, Lymphocytes % ( Manual) 25, Monocytes % (Manual) 15H, Eosinophils % (Manual) 4H, Basophils % ( Manual) 0, Band Neutrophils 0, Platelet Estimate DecreasedL, Platelet Morphology Normal, Hypochromasia 1+, Anisocytosis 1+, Sodium Level 144, Potassium Level 3.4L, Chloride Level 112H, Carbon Dioxide Level 24, Anion Gap 8 , Blood Urea Nitrogen 17, Creatinine 0.9, Estimat Glomerular Filtration Rate , Glucose Level 84, Calcium Level 6.7#L, Total Bilirubin 0.2, Aspartate Amino Transf (AST/SGOT) 39H, Alanine Aminotransferase (ALT/SGPT) 38, Alkaline Phosphatase 64, Total Protein 5.9L, Albumin 2.6L, Globulin 3.3, Albumin/ Globulin Ratio 0.8L Height (Feet): 5 Height (Inches): 5.00 Weight (Pounds): 104 General Appearance: no apparent distress, alert Neurologic: alert, oriented x 3, depressed affect Tiburcio Horn M.D. Jan 28, 2018 12:37
--- NOTE | 2018-01-28 14:45 | General Progress Note ---
Assessment/Plan Status: doing well, stable, ambulating well Assessment/Plan # Leukopenia, likely related to hepatic congestion with splenomegaly. --> hepatitis panel and HIV are negative. --> ultrasound of the abdomen shows no significant abnormalities. --> cont abx w/ ID service # Anemia due to underlying chronic disease. --> Closely monitor. --> anemia w/u reviewed. Will trend daily. --> hgb goal >7 # Deep venous thrombosis and pulmonary embolism history, --> currently resolved. --> Continue anticoagulation with Xarelto. # Abdominal pain, history of recurrent episodes, history of chronic pancreatitis with nausea. --> US shows no significant abnormalities --> amylase 102, lipase 152. Within normal range # Degenerative joint disease. # Osteoporosis. # Chronic back pain. # Gastroesophageal reflux disease. Subjective Date patient seen: Jan 28, 2018 Allergies: Coded Allergies: AMOXICILLIN (Verified Allergy, Unknown, RASH, 06/29/14) CORTISONE (Verified Allergy, Unknown, 06/29/14) KETOROLAC (Verified Allergy, Unknown, 06/29/14) PENICILLINS (Verified Allergy, Unknown, 06/29/14) All Systems: reviewed and negative except above Subjective Pt is stable and medically cleared for dc to home care. NAD. Objective Last 24 Hour Vital Signs Date Time Temp Pulse Resp B/P (MAP) Pulse Ox O2 Delivery O2 Flow Rate FiO2 01/28/18 09:18 81 107/56 01/28/18 08:40 74 18 Room Air 21 01/28/18 08:00 97.8 81 18 107/56 94 97.8 01/28/18 04:00 97.5 71 18 135/56 94 97.5 01/28/18 00:00 98.2 69 18 136/65 100 98.2 01/27/18 21:13 76 143/63 01/27/18 20:00 98.5 75 18 143/67 98 98.5 01/27/18 19:50 76 18 Room Air 21 01/27/18 15:52 97.5 75 18 143/63 100 97.5 Intake and Output 01/27/18 01/28/18 19:00 07:00 Intake Total 600 ml 350 ml Balance 600 ml 350 ml Intake Oral 600 ml 350 ml # Voids 4 2 # Bowel Movements 2 Laboratory Tests 01/28/18 07:10: White Blood Count 2.5L, Red Blood Count 3.94L, Hemoglobin 11.3L, Hematocrit 34.4L, Mean Corpuscular Volume 87, Mean Corpuscular Hemoglobin 28.7, Mean Corpuscular Hemoglobin Concent 32.9, Red Cell Distribution Width 13.0, Platelet Count 134L, Mean Platelet Volume 7.8, Neutrophils (%) (Auto) , Lymphocytes (%) ( Auto) , Monocytes (%) (Auto) , Eosinophils (%) (Auto) , Basophils (%) (Auto) , Differential Total Cells Counted 100, Neutrophils % (Manual) 56, Lymphocytes % ( Manual) 25, Monocytes % (Manual) 15H, Eosinophils % (Manual) 4H, Basophils % ( Manual) 0, Band Neutrophils 0, Platelet Estimate DecreasedL, Platelet Morphology Normal, Hypochromasia 1+, Anisocytosis 1+, Sodium Level 144, Potassium Level 3.4L, Chloride Level 112H, Carbon Dioxide Level 24, Anion Gap 8 , Blood Urea Nitrogen 17, Creatinine 0.9, Estimat Glomerular Filtration Rate , Glucose Level 84, Calcium Level 6.7#L, Total Bilirubin 0.2, Aspartate Amino Transf (AST/SGOT) 39H, Alanine Aminotransferase (ALT/SGPT) 38, Alkaline Phosphatase 64, Total Protein 5.9L, Albumin 2.6L, Globulin 3.3, Albumin/ Globulin Ratio 0.8L Height (Feet): 5 Height (Inches): 5.00 Weight (Pounds): 104 General Appearance: no apparent distress, alert EENT: PERRL/EOMI Neck: normal alignment, supple Cardiovascular: normal peripheral pulses Respiratory/Chest: no respiratory distress Abdomen: soft Adolfo Cardona MD Jan 28, 2018 14:45
--- NOTE | 2018-01-29 07:13 | Discharge Summary ---
Discharge Summary Discharge Summary _ DATE OF ADMISSION: 01/23/2018 DATE OF DISCHARGE: 01/28/2018 CONSULTANTS: Dr. Adolfo Hernández BRIEF HOSPITAL COURSE: Patient is a 72-year-old female, with history of hypertension, hyperlipidemia, SLE, history of DVT and PE (on Eliquis), CVA, GERD, chronic constipation, anemia of chronic disease, chronic back pain, presented to ED complaining of abdominal pain and shortness of breath. Patient complained of increased abdominal discomfort and back pain with associated nausea but no emesis. Abdominal pain was described to be crampy, 6-8 in intensity. She denied fever or chills, diarrhea, dysuria, focal weakness or numbness. She had shortness of breath together with pain. She denied chest pain, palpitations, and dizziness. Patient stated loss of her son in September 2017. Since then she started smoking again. She has history of diabetes mellitus however is not taking any medications. She recently had a fall where she tripped, she denied loss of consciousness or head trauma, she had leg pain but was able to ambulate. On evaluation at ED, blood work showed WBC 2.8, electrolytes were normal, troponin was negative. EKG was in normal sinus rhythm. Chest x-ray showed atelectasis in the medial right lung base. She was admitted for evaluation of abdominal pain possible pancreatitis flare versus gastritis versus somatization. She was seen by GI and was evaluated by surgery. Amylase and lipase were normal. KUB showed no acute process. Abdominal ultrasound showed surgically absent gallbladder with a dilated common bile duct. Abdominal exam was benign there is no surgically unneeded intervention. She was given bowel regimen with Colace, MiraLAX and Dulcolax. She has a history of DVT with PE. She was continued on Eliquis. Respiratory status was stable. She was counseled on tobacco cessation. She came in with leukopenia, work-up HIV and hepatitis panel were negative. Abdominal ultrasound without any significant abnormalities. The spleen was unremarkable. Leukopenia likely related to hepatic congestion. She also had anemia possibly from chronic disease. Hemoglobin A1c 7.7. Blood sugars were monitored and was placed on insulin sliding scale. Unable to start patient on metformin due to GI symptoms. She was given Starlix 60 mg before meals 3 times a day and Januvia 50 mg daily. No need to continue insulin after discharge. She had a fall recently and had significant right knee pain and swelling. She had worsening of back pain. She was evaluated recently by Dr. Oliver who advised CT scan of the knee however was unable to get done. Patient cannot have MRI due to implanted pain device. She was followed as inpatient. Right knee CT showed moderate joint effusion, negative for acute fractures. She was given PO/OT. Advised to follow-up upon discharge. She had good pain control and was tolerating diet well. She was eventually discharged home. FINAL DIAGNOSES: Intractable acute on chronic abdominal pain Back pain with prior L4-L5 fusion Right knee effusion ,status post mechanical fall prior to admission Diabetes mellitus Lupus Hypercoagulable state Hypertension Smoker Leukopenia Chronic pain GERD Constipation Anxiety disorder DISPOSITION: Patient was discharged home. DISCHARGE MEDICATIONS: Refer to Discharge Medication List. DISCHARGE INSTRUCTIONS: Follow up with Dr. Malin on 02/01/2018. I have been assigned to dictate discharge summary on this account, and I was not involved in the patient's management. Jane Ma NP Jan 29, 2018 07:13
== END 2018-01-28 12:36 | disposition home or self-care (01) | DRG 392 ==
LOC: EMR 15:15 → 2E 16:48 → EDBEDREQ 18:49 → 3E 01-24 14:30 → 4E 01-26 10:47
DX: R10.9 Unspecified abdominal pain (principal); D68.59 Other primary thrombophilia; I10 Essential (primary) hypertension; M32.9 Systemic lupus erythematosus, unspecified; K21.9 Gastro-esophageal reflux disease without esophagitis; Z88.1 Allergy status to other antibiotic agents; Z88.0 Allergy status to penicillin; Z88.8 Allergy status to other drugs, medicaments and biological substances; Z98.1 Arthrodesis status; M54.5 Low back pain; G89.29 Other chronic pain; F17.200 Nicotine dependence, unspecified, uncomplicated; K59.00 Constipation, unspecified; F41.9 Anxiety disorder, unspecified; E78.5 Hyperlipidemia, unspecified; Z91.81 History of falling; Z86.718 Personal history of other venous thrombosis and embolism; M81.0 Age-related osteoporosis without current pathological fracture; D63.8 Anemia in other chronic diseases classified elsewhere; Z79.01 Long term (current) use of anticoagulants; M19.90 Unspecified osteoarthritis, unspecified site; E11.9 Type 2 diabetes mellitus without complications; M25.461 Effusion, right knee; Z86.73 Personal history of transient ischemic attack (TIA), and cerebral infarction without residual deficits
CPT/HCPCS: 36415; 71045; 74018; 76700; 80048; 80053; 81003; 82150; 82550; 82553; 82962; 83036; 83605; 83690; 83735; 83880; 84443; 84484; 85007; 85025; 85610; 85730; 86703; 86705; 86709; 86803; 87040; 87340; 93005; 94664; 94760; 96374; 96523; 99285; J1815; J2405

== ENCOUNTER 2018-06-01 14:07 | Emergency (ER) | payer MEDICARE, OTHER ==
[~2018-06-01] VITALS: Ht 165.1 cm; Wt 59.4 kg
[~2018-06-01 14:07] MED LIST changes: +JANUVIA25 MG ORAL; +STARLIX60 MG ORAL; +TRAZODONE HCL150 MG ORAL
[2018-06-01 14:11] VITALS: BP 139/62
--- NOTE | 2018-06-01 14:59 | Emergency Room Report ---
History of Present Illness General Chief Complaint: Back Pain-No Injury Source: Patient Present Illness HPI 73-year-old female patient presents ER complaining of chronic back pain exacerbation. Patient reports pain is present for the past 2 days. Patient reports history of back surgery several years ago. Patient states that she is currently taking levorphanol. 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 Patient denies dysuria, hematuria. Denies abdominal pain. Reports that she was told if she has an acute exacerbation should go to the ER. Patient states that she previously would get joint injections or Dilaudid for pain symptoms. Denies bowel or bladder incontinence. denies fever , chest pain or shortness breath, abdominal pain, headache. Allergies: Coded Allergies: AMOXICILLIN (Verified Allergy, Unknown, RASH, 06/29/14) CORTISONE (Verified Allergy, Unknown, 06/29/14) KETOROLAC (Verified Allergy, Unknown, 06/29/14) PENICILLINS (Verified Allergy, Unknown, 06/29/14) Patient History Past Medical History: see triage record Reviewed Nursing Documentation: PMH: Agreed; PSxH: Agreed Nursing Documentation-PMH Past Medical History: No History, Except For Hx Cardiac Problems: Yes - Anemia, HTN, Hx Hypertension: Yes Hx Pacemaker: No Hx Asthma: No - LUPUS, ARTHRITIS Hx COPD: Yes Hx Diabetes: Yes Hx Cancer: No Hx Gastrointestinal Problems: Yes - Pancreatitis, Constipation Hx Dialysis: No Hx Neurological Problems: Yes - Two laminectomies Hx Cerebrovascular Accident: Yes Hx Transient Ischemic Attacks: Yes Hx Seizures: Yes Hx Vertigo: Yes Hx Headaches: Yes Hx Weakness: Yes Review of Systems All Other Systems: negative except mentioned in HPI Physical Exam Vital Signs Date Time Temp Pulse Resp B/P (MAP) Pulse Ox O2 Delivery O2 Flow Rate FiO2 06/01/18 14:11 98.1 85 17 139/62 97 Room Air Sp02 EP Interpretation: reviewed, normal General Appearance: well appearing, no apparent distress, alert, GCS 15, non- toxic Head: normocephalic, atraumatic Eyes: bilateral eye normal inspection, bilateral eye PERRL ENT: hearing grossly normal, normal pharynx, no angioedema, normal voice, uvula midline, moist mucus membranes Neck: full range of motion Respiratory: lungs clear, normal breath sounds, no rhonchi, no respiratory distress, no accessory muscle use, no wheezing, speaking full sentences Cardiovascular #1: regular rate, rhythm, no edema Gastrointestinal: non tender, soft, no mass, non-distended, no guarding, no rebound Genitourinary: no CVA tenderness Musculoskeletal: back normal, digits/nails normal, gait/station normal, normal range of motion, non-tender Neurologic: alert, oriented x3, responsive, motor strength/tone normal, SLR negative, sensory intact, cerebellar normal, normal gait, speech normal Psychiatric: mood/affect normal Skin: no rash Lymphatic: no adenopathy Medical Decision Making PA Attestation Dr. John is my supervising Physician whom patient management has been discussed with. Diagnostic Impression: Primary Impression: Acute exacerbation of chronic low back pain ER Course Pt presents to ED c/o chronic back pain. DDX considered but are not limited to sprain, strain, cauda equine, epidural abscess, AAA, spinal cord compression, kidney stones, drug seeking, chronic pain. Low suspicion for cauda equina, no bowel or bladder incontinence or retention. No fever, nontoxic appearing, no radiation of pain, low suspicion for epidural mass. No abdominal pain, no blood pressure elevation, nontoxic appearing, low suspicion for AAA. VITAL SIGNS are WNL, patient is afebrile Ordered pain medication. ER COURSE: CURES reviewed. Informed patient that cannot provide her with prescription for opioid pain medication. Will provide her with [place] while in the ER. Provided with Robaxin. Patient reports understanding and agreement to treatment plan. No recent injury or trauma. Previous imaging done his surgery. Does not require imaging at this time. Followup with pain management and/or PT. Request referral from PCP. Followup with PCP for further MRI and/or CT imaging as needed. ER precautions given. Patient ambulating independently without difficulty. Patient requesting to be discharged home. Okay for outpatient follow-up and treatment. DISCHARGE: -Rx provided for Robaxin. SE may cause drowsiness, do not take prior to drinking , driving, or operating heavy machinery. At this time pt. is stable for d/c to home. At this time patient is resting comfortably, in no acute distress, nontoxic appearing, smiling and talking without difficulty. Will provide printed patient care instructions, and any necessary prescriptions. Patient instructed to follow with primary care provider for further treatment and referral as needed. Care plan and follow up instructions have been discussed with the patient prior to discharge. Patient reports understanding and agreement to treatment plan. Patient questions asked and answered. ER precautions given, patient instructed to return to ER immediately for any new or worsening of symptoms. - Please note that this Emergency Department Report was dictated using [employer] Brasil[employer]cription technology software, occasionally this can lead to erroneous entry secondary to interpretation by the dictation equipment. Last Vital Signs Date Time Temp Pulse Resp B/P (MAP) Pulse Ox O2 Delivery O2 Flow Rate FiO2 06/01/18 14:11 98.1 85 17 139/62 97 Room Air Status: improved Disposition: HOME, SELF-CARE Condition: Stable Scripts Methocarbamol* (ROBAXIN*) 500 Mg Tablet 500 MG PO TID, #21 TAB 0 Refills Prov: Christian Fuentes 06/01/18 Referrals: Vito Malin MD (PCP) Patient Instructions: Chronic Back Pain Additional Instructions: Patient instructed to follow up with primary care provider 3-5 and discuss further referral and imaging at that time. Patient instructed on rest, ice and heat. Do not take muscle relaxant prior to drinking, driving, or operating heavy machinery. Take medications as directed. Patient questions asked and answered. ER precautions given, patient instructed to return to ER immediately for any new or worsening of symptoms. [facility] [address] [facility], [id number] [email or web address] Christian Fuentes Jun 01, 2018 14:59
[2018-06-01] MEDS ORDERED: Methocarbamol 500mg tab ORAL ONE (15:00)
[2018-06-01] MEDS ORDERED: HYDROcodone/Acetamin 10/325 tab ORAL ONE (15:00)
[2018-06-01] MEDS ORDERED: ROBAXIN500 MG PO (15:09)
[2018-06-01 15:13] VITALS: BP 139/62
== END 2018-06-01 15:13 | disposition home or self-care (01) ==
LOC: EMR 14:40
DX: M54.5 Low back pain (principal); G89.29 Other chronic pain; M32.9 Systemic lupus erythematosus, unspecified; I10 Essential (primary) hypertension; J44.9 Chronic obstructive pulmonary disease, unspecified; E11.9 Type 2 diabetes mellitus without complications; Z86.73 Personal history of transient ischemic attack (TIA), and cerebral infarction without residual deficits; Z88.0 Allergy status to penicillin; Z88.8 Allergy status to other drugs, medicaments and biological substances
CPT/HCPCS: 99282

== ENCOUNTER 2018-06-16 13:12 | Outpatient (CLI) | payer MEDICARE, OTHER ==
[~2018-06-16 13:12] MED LIST changes: +ROBAXIN500 MG PO
--- NOTE | 2018-06-16 15:05 | Diagnostic Imaging Report ---
Indication: Chest pain Technique: 2 views of the chest Comparison: 01/23/2018 single view chest Findings: Spinal stimulator and left chest port catheter again demonstrated. Linear metallic radiopaque foreign body again projects in the left axilla. Lungs and pleural spaces remain clear. The heart size is normal. No significant change Impression: No acute process
== END 2018-06-16 15:12 | disposition home or self-care (01) ==
LOC: RAD 13:12
DX: R07.9 Chest pain, unspecified (principal); I10 Essential (primary) hypertension; Z96.9 Presence of functional implant, unspecified
CPT/HCPCS: 71046

== ENCOUNTER 2018-07-06 09:26 | Outpatient (CLI) | payer MEDICARE, OTHER ==
[2018-07-06 09:48] VITALS: BP 154/58
--- NOTE | 2018-07-06 11:03 | GI Progress Note ---
Assessment/Plan Problems: (1) Diarrhea ICD Codes: R19.7 - Diarrhea, unspecified SNOMED: 14970195 (2) Abdominal pain of unknown etiology ICD Codes: R10.9 - Unspecified abdominal pain SNOMED: 572249654 (3) Lupus ICD Codes: M32.9 - Systemic lupus erythematosus, unspecified SNOMED: 01769193 Status: stable Status Narrative Discussed with Dr. Victoria. Assessment/Plan Imodium PRN Rx tramadol #30 RTC x 2 weeks The patient was seen and examined at bedside and all new and available data was reviewed in the patients chart. I agree with the above findings, impression and plan. (Patient seen earlier today. Signature stamp does not reflect patient encounter time.). - Bhargav Victoria MD Subjective Subjective abdominal pain diarrhea pain medication decreased Objective Last 24 Hour Vital Signs Date Time Temp Pulse Resp B/P (MAP) Pulse Ox O2 Delivery O2 Flow Rate FiO2 07/06/18 09:48 98.5 73 18 154/58 97 General Appearance: WD/WN, no apparent distress, alert Cardiovascular: normal rate Respiratory/Chest: normal breath sounds, no respiratory distress Abdominal Exam: normal bowel sounds, non tender, soft Extremities: normal range of motion, non-tender Tien Henry NP Jul 06, 2018 11:03
== END 2018-07-06 09:56 | disposition home or self-care (01) ==
LOC: PAN 09:26
DX: R19.7 Diarrhea, unspecified (principal); R10.9 Unspecified abdominal pain; M32.9 Systemic lupus erythematosus, unspecified
CPT/HCPCS: 99212

== ENCOUNTER 2018-07-15 14:49 | Outpatient (CLI) | payer MEDICARE, OTHER ==
[2018-07-15 15:05] VITALS: BP 167/63
[2018-07-15] MEDS ORDERED: ALIGN4 M1 PO (15:08)
[2018-07-15] MEDS ORDERED: TRAMADOL HCL50 MG ORAL (15:08)
--- NOTE | 2018-07-15 15:54 | GI Initial Consult Note ---
History of Present Illness General Date patient seen: Jul 15, 2018 Time patient seen: 15:47 Referring physician: MANFRED Reason for Consultation: ABDOMINAL PAIN Present Illness HPI 73y/o female with pmh of HTN, HLD, SLE, h/o DVT/PE (on xarelto), CVA, GERD, chronic constipation, anemia of chronic disease, chronic back pain who presents with epigastric pain. In addition, the patient of diarrhea. Reports loose stool, but has been a little better with align. Her last EGD/colonoscopy was performed in 2014. Home Meds Reported Medications Tramadol Hcl* (ULTRAM*) 50 Mg Tablet, 50 MG ORAL Q12HR PRN for For Pain, #30 TAB 0 Refills 07/15/18 Bifidobacterium Infantis (ALIGN) 4 Mg Capsule, 4 MG PO DAILY, CAP 07/15/18 Nateglinide* (STARLIX*) 60 Mg Tablet, 60 MG ORAL THREE TIMES A DAY, TAB 01/28/18 Sitagliptin* (JANUVIA*) 25 Mg Tablet, 50 MG ORAL DAILY, TAB 01/28/18 Ondansetron* (ZOFRAN*) 4 Mg Tablet, 4 MG ORAL Q6H PRN for Nausea & Vomiting, TAB 10/07/17 Alprazolam* (XANAX*) 0.25 Mg Tablet, 0.25 MG ORAL THREE TIMES A DAY, #30 TAB 0 Refills 10/07/17 Atorvastatin Calcium* (LIPITOR*) 10 Mg Tablet, 10 MG ORAL BEDTIME, TAB 10/07/17 Amlodipine Besylate (Norvasc) 5 Mg Tab, 5 MG ORAL BID, TAB 06/08/14 Rivaroxaban (XARELTO*) 10 Mg Tablet, 20 MG ORAL DAILY, TAB 03/03/13 Polyethylene Glycol* (MIRALAX*) 17 Gm Powd.pack, 17 GM ORAL DAILY, PACKET 11/18/12 Med list reviewed/reconciled: Yes Allergies: Coded Allergies: AMOXICILLIN (Verified Allergy, Unknown, RASH, 06/29/14) CORTISONE (Verified Allergy, Unknown, 06/29/14) KETOROLAC (Verified Allergy, Unknown, 06/29/14) PENICILLINS (Verified Allergy, Unknown, 06/29/14) Patient History History Provided By: Patient, Medical Record PMH Narrative Allergies: Coded Allergies: AMOXICILLIN (Verified Allergy, Unknown, RASH, 06/29/14) CORTISONE (Verified Allergy, Unknown, 06/29/14) KETOROLAC (Verified Allergy, Unknown, 06/29/14) PENICILLINS (Verified Allergy, Unknown, 06/29/14) Medication History Scheduled (1) GERD (gastroesophageal reflux disease) (2) Chronic constipation (3) Lupus (4) Osteoarthritis (5) Anemia (6) HTN (hypertension) (7) HLD (hyperlipidemia) (8) DVT (deep venous thrombosis) Family History Narrative Family History: Patient reports no known family medical history. Social History Social History: (1) lives on own (2) Smoker Review of Systems All Other Systems: negative except mentioned in HPI Physical Exam Vital Signs Date Time Temp Pulse Resp B/P (MAP) Pulse Ox O2 Delivery O2 Flow Rate FiO2 07/15/18 15:05 98.1 65 18 167/63 98 Sp02 EP Interpretation: reviewed, normal General Appearance: well appearing, no apparent distress, alert Head: normocephalic EENT: PERRL/EOMI, normal ENT inspection Neck: supple Respiratory: normal breath sounds, no respiratory distress Cardiovascular: normal rate Gastrointestinal: normal inspection, non tender, soft, normal bowel sounds, non -distended Rectal: deferred Genitourinary: no CVA tenderness Musculoskeletal: normal inspection, back normal Neurologic: normal inspection, alert, oriented x3, responsive Psychiatric: normal inspection, judgement/insight normal, memory normal Skin: normal inspection, normal color, no rash, warm/dry, palpation normal, well hydrated Lymphatic: normal inspection, no adenopathy GI: Plan Problems: (1) GERD (gastroesophageal reflux disease) (2) Anemia (3) Gastritis (4) Abdominal pain of unknown etiology (5) Diarrhea (6) Smoker (7) Chronic pain Plan EGD/colonoscopy to be scheduled 07/21/16. - CLD & (Nulytely/Suprep/Movi-Prep) prep instructions given and acknowledged by patient. - NPO @ MN day prior procedure explained. - Xarelto must be held min 72 hours prior procedure. Will follow with additional recs post procedure. Trial Zenpep, Rx given Seen with Dr. Victoria. Thank you for this patient referral. The patient was seen and examined at bedside and all new and available data was reviewed in the patients chart. I agree with the above findings, impression and plan. (Patient seen earlier today. Signature stamp does not reflect patient encounter time.). - MD Elaine Norman Anh-Lawrence SHELL Jul 15, 2018 15:54
== END 2018-07-15 15:19 | disposition home or self-care (01) ==
LOC: PAN 14:49
DX: K21.9 Gastro-esophageal reflux disease without esophagitis (principal); K29.70 Gastritis, unspecified, without bleeding; R19.7 Diarrhea, unspecified; F17.200 Nicotine dependence, unspecified, uncomplicated; G89.29 Other chronic pain; K59.09 Other constipation; M32.9 Systemic lupus erythematosus, unspecified; M19.90 Unspecified osteoarthritis, unspecified site; I10 Essential (primary) hypertension; E78.5 Hyperlipidemia, unspecified; Z86.718 Personal history of other venous thrombosis and embolism; M54.9 Dorsalgia, unspecified; D63.8 Anemia in other chronic diseases classified elsewhere; Z88.4 Allergy status to anesthetic agent; Z88.1 Allergy status to other antibiotic agents; Z88.0 Allergy status to penicillin
CPT/HCPCS: 99212

== ENCOUNTER 2018-07-21 09:55 | Day surgery (SDC) | payer MEDICARE, OTHER ==
[2018-07-21] VITALS (9 sets, daily range): BP systolic 122–162; BP diastolic 56–75
[~2018-07-21] VITALS: Ht 165.1 cm; Wt 54.4 kg
[~2018-07-21 09:55] MED LIST changes: +TRAMADOL HCL50 MG ORAL
--- NOTE | 2018-07-21 10:19 | Pre-Procedure Note/Attestation ---
Pre-Procedure Note/Attestation Complete Prior to Procedure Planned Procedure: not applicable Procedure Narrative: esophagogastroduodenoscopy and colonoscopy Indications for Procedure Pre-Operative Diagnosis: screening colon, gerd Attestation I attest that I discussed the nature of the procedure; its benefits; risks and complications; and alternatives (and the risks and benefits of such alternatives ), prior to the procedure, with the patient (or the patient's legal senior human resources representative). I attest that, if there was a reasonable possibility of needing a blood transfusion, the patient (or the patient's legal senior human resources representative) was given the [facility] standardized written summary, pursuant to the [place] Blood Safety Act ([place] Health and Safety Code # 1645, as amended). I attest that I re-evaluated the patient just prior to the surgery and that there has been no change in the patient's H&P, except as documented below: Bhargav Victoria MD Jul 21, 2018 10:19
--- NOTE | 2018-07-21 10:22 | Short Stay Surgery H&P ---
History of Present Illness History of Present Illness Chief Complaint see recent office notes HPI Natalee Dowling is a 73 year old female who was admitted on for Gerd, Abdominal Pain Patient History Allergies: Coded Allergies: AMOXICILLIN (Verified Allergy, Unknown, RASH, 06/29/14) CORTISONE (Verified Allergy, Unknown, 06/29/14) KETOROLAC (Verified Allergy, Unknown, 06/29/14) PENICILLINS (Verified Allergy, Unknown, 06/29/14) Relevant Family History: Patient reports no known family medical history. Medication History Scheduled Alprazolam* (Xanax*), 0.25 MG ORAL THREE TIMES A DAY, (Reported) Amlodipine Besylate (Norvasc), 5 MG ORAL BID, (Reported) Atorvastatin Calcium* (Lipitor*), 10 MG ORAL BEDTIME, (Reported) Bifidobacterium Infantis (Align), 4 MG PO DAILY, (Reported) Nateglinide* (Starlix*), 60 MG ORAL THREE TIMES A DAY, (Reported) Polyethylene Glycol* (Miralax*), 17 GM ORAL DAILY, (Reported) Rivaroxaban (Xarelto*), 20 MG ORAL DAILY, (Reported) Sitagliptin* (Januvia*), 50 MG ORAL DAILY, (Reported) Scheduled PRN Ondansetron* (Zofran*), 4 MG ORAL Q6H PRN for Nausea & Vomiting, (Reported) Tramadol Hcl* (Ultram*), 50 MG ORAL Q12HR PRN for For Pain, (Reported) Plan Attestation Are the patient's medical conditions optimized for surgery? Bhargav Victoria MD Jul 21, 2018 10:22
[2018-07-21] MEDS ORDERED: Propofol 200mg/20ml IV ONE (11:00)
[2018-07-21] MEDS ORDERED: Lidocaine 1% MPF 10mg/ml 5ml ONE (11:00)
[2018-07-21] MEDS ORDERED: Midazolam 2mg/2ml Inj IVP PRN (12:00)
[2018-07-21] MEDS ORDERED: Atropine Inj 1mg/10ml Syr IV PRN (12:00)
[2018-07-21] MEDS ORDERED: DiphenhydrAMINE 50mg/ml Inj IVP PRN (12:00)
--- NOTE | 2018-07-21 12:00 | Endoscopy Procedure Note ---
Endoscopy Procedure Note General Indication for Procedure: screening colon, GERD Procedures Performed: EGD, colonoscopy Operative Findings/Diagnosis: gastritis, hemorrhoids Specimen: yes Pt Tolerated Procedure Well: Yes Estimated Blood Loss: none Anesthesia Anesthesiologist: paul Anesthesia: MAC Inserted Devices Implant(s) used?: No Quality Quality of Bowel Preparation: Fair Did scope reach the cecum?: Yes Was there any complications?: No GI Core Measures 50 yrs or older w/o bx or poly: No 10yrs. F/U not recommended: Yes If not recommended, why?: Above average risk 10 yrs. F/U needed: Yes 18 years or older w/prev. colo: Yes <3yrs. since last colonoscopy: No Bhargav Victoria MD Jul 21, 2018 12:00
--- NOTE | 2018-07-21 12:03 | Anethesia Preoperative Eval ---
Anesthesia Pre-op PMH/ROS General Date of Evaluation: Jul 21, 2018 Time of Evaluation: 11:16 Anesthesiologist: paul ASA Score: ASA 4 Mallampati Score Class I : Soft palate, uvula, fauces, pillars visible Class II: Soft palate, uvula, fauces visible Class III: Soft palate, base of uvula visible Class IV: Only hard plate visible Mallampati Classification: Class II Surgeon: karli Diagnosis: gerd, abdominal pain Surgical Procedure: egd/colonoscopy/bx Anesthesia History: none Social History: current smoker Family History: no anesthesia problems Allergies: Coded Allergies: AMOXICILLIN (Verified Allergy, Unknown, RASH, 06/29/14) CORTISONE (Verified Allergy, Unknown, 06/29/14) KETOROLAC (Verified Allergy, Unknown, 06/29/14) PENICILLINS (Verified Allergy, Unknown, 06/29/14) Medications: see eMAR Patient NPO?: Yes Past Medical History Cardiovascular: Reports: HTN Pulmonary: Reports: asthma, COPD Gastrointestinal/Genitourinary: Reports: GERD, other - colitis, gastritis, hemmorhoids, ovarian cancer Neurologic/Psychiatric: Reports: CVA, depression/anxiety, TIA, other - sz dz, vertigo Endocrine: Reports: DM HEENT: Reports: cataract (L), cataract (R) Hematology/Immune: Reports: other - pulmonary embolism, lupus Musculoskeletal/Integumentary: Reports: OA, DDD PSxH Narrative: hysterectomy Anesthesia Pre-op Phys. Exam Physician Exam Last Vital Signs Date Time Temp Pulse Resp B/P (MAP) Pulse Ox O2 Delivery O2 Flow Rate FiO2 07/21/18 10:37 98.0 89 18 147/75 98 Room Air Constitutional: NAD Neurologic: CN 2-12 intact Cardiovascular: RRR Respiratory: CTA Gastrointestinal: S/NT/ND Airway Exam Mallampati Score: Class II MO: limited Neck: stiff TMD: 2fb ROM: limited Dentures: upper Anesthesia Pre-op A/P Studies Pre-op Studies: EKG - nsr Risk Assessment & Plan Assessment: asa4 Plan: mac Status Change Before Surgery: No Pre-Antibiotics Drug: Carline Pham MD Jul 21, 2018 12:03
[2018-07-21] MEDS: fentaNYL 100 mcg/2 mL IV PRN ×2 (12:24→12:45)
--- NOTE | 2018-07-21 12:24 | Immediate Post-Op Evaluation ---
Immediate Post-Op Evalulation Immediate Post-Op Evalulation Procedure: egd/colonoscopy/bx Date of Evaluation: Jul 21, 2018 Time of Evaluation: 12:24 IV Fluids: 200ml 0.9ns Blood Products: none Estimated Blood Loss: negligible Blood Pressure Systolic: 128 Blood Pressure Diastolic: 68 Pulse Rate: 66 Respiratory Rate: 18 O2 Sat by Pulse Oximetry: 100 Temperature (Fahrenheit): 98.4 Pain Score (1-10): 0 Nausea: No Vomiting: No Complications none Patient Status: awake, reacts, patent Hydration Status: adequate Drug: Carline Pham MD Jul 21, 2018 12:24
--- NOTE | 2018-07-21 12:26 | 48 Hour Post Anesthesia Eval ---
Post Anesthesia Evaluation Procedure: egd/colonoscopy/bx Date of Evaluation: Jul 21, 2018 Time of Evaluation: 12:26 Blood Pressure Systolic: 122 0: 68 Pulse Rate: 65 Respiratory Rate: 18 Temperature (Fahrenheit): 98.4 O2 Sat by Pulse Oximetry: 100 Airway: patent Nausea: No Vomiting: No Pain Intensity: 0 Hydration Status: adequate Cardiopulmonary Status: stable Mental Status/LOC: patient returned to baseline Post-Anesthesia Complications: none Follow-up care needed: N/A Carline Kc MD Jul 21, 2018 12:26
--- NOTE | 2018-07-21 16:30 | Procedure Note ---
DATE OF PROCEDURE: 07/21/2018 SURGEON: Bhargav Victoria M.D. PROCEDURE: Colonoscopy and upper endoscopy with biopsy. ANESTHESIA: Per Dr. Davis. INSTRUMENT: Olympus adult flexible upper endoscope and colonoscope. INDICATIONS: 1. Screening colonoscopy. 2. Chronic GERD. 3. Abdominal pain. The procedure, risks, benefits, and possible consequences, including hemorrhage, aspiration, perforation and infection, and alternative treatments, were explained to the patient/legal guardian by Dr. Bhargav Victoria and the patient/legal guardian understood and accepted these risks. DESCRIPTION OF PROCEDURE: After informed consent was obtained and the patient was adequately sedated, Olympus upper endoscope was advanced from the mouth into the second portion of the duodenum and retroflexion was performed in the stomach. The patient had evidence of esophageal varices, grade 2 mostly in the middle esophagus which was interesting usually esophageal varices distal esophagus but in her condition it was in the middle of the esophagus. The patient also had evidence of a small inlet patch. In the stomach, there was diffuse gastritis. Random biopsy from antrum and body was obtained to rule out H. pylori infection. Otherwise, the rest of the upper endoscopic examination was within limits. At this time, the upper endoscope was retrieved. The patient was turned over for colonoscopy. First, rectal exam was performed which was normal. Then, the scope was advanced from rectum into the cecum documented by appendiceal orifice, ileocecal valve, and right upper quadrant palpation. Quality of prep was fair. The patient had no obvious polyp seen in this examination although the colonoscopy prep was fair. Retroflexion of rectum showed evidence of internal hemorrhoids. SUMMARY OF FINDINGS: 1. Esophageal varices in the middle esophagus, unknown etiology at this time. 2. Gastritis, status post biopsy. 3. Inlet patch. 4. Fair colonic prep. 5. Internal hemorrhoids. RECOMMENDATIONS: 1. Followup biopsy results. 2. We will recommend abdominal ultrasound to rule out liver disease, also maybe a Doppler study to rule out any blood clot or vascular occlusion causing the esophageal varices. I want to thank Dr. Cece Osborn and Dr. Vito Stanley, for this kind referral. Bhargav Rosalba Victoria DR: Debo JOB#: [id number] CC: Cece Osborn M.D.; Fax#: [phone] VITO STANLEY M.D. ; FAX#: [phone]
--- NOTE | 2018-07-26 14:22 | Cardiology Report ---
APPROVED REPORT EKG Measurement Heart [id number] MN [id number] [id number] Normal sinus rhythm Normal ECG
== END 2018-07-21 13:45 | disposition home or self-care (01) ==
LOC: GAS 09:55
DX: Z12.11 Encounter for screening for malignant neoplasm of colon (principal); I85.00 Esophageal varices without bleeding; K29.50 Unspecified chronic gastritis without bleeding; K64.8 Other hemorrhoids; K21.9 Gastro-esophageal reflux disease without esophagitis; R10.9 Unspecified abdominal pain; Z88.0 Allergy status to penicillin; Z88.8 Allergy status to other drugs, medicaments and biological substances; I10 Essential (primary) hypertension; J44.9 Chronic obstructive pulmonary disease, unspecified; F32.9 Major depressive disorder, single episode, unspecified; F41.9 Anxiety disorder, unspecified; Z86.73 Personal history of transient ischemic attack (TIA), and cerebral infarction without residual deficits; E11.9 Type 2 diabetes mellitus without complications; M19.90 Unspecified osteoarthritis, unspecified site
CPT/HCPCS: 93005; 94003; 94150

== ENCOUNTER 2018-08-10 10:10 | Outpatient (CLI) | payer MEDICARE, OTHER ==
[2018-08-10 10:30] VITALS: BP 129/55
--- NOTE | 2018-08-11 15:18 | GI Progress Note ---
Assessment/Plan Problems: (1) Abdominal pain of unknown etiology ICD Codes: R10.9 - Unspecified abdominal pain SNOMED: 563915515 (2) Gastritis ICD Codes: K29.70 - Gastritis, unspecified, without bleeding SNOMED: 9000117 (3) Diarrhea ICD Codes: R19.7 - Diarrhea, unspecified SNOMED: 73261515 (4) GERD (gastroesophageal reflux disease) ICD Codes: K21.9 - GERD (gastroesophageal reflux disease) SNOMED: 226209250 (5) Anemia ICD Codes: D64.9 - Anemia, unspecified SNOMED: 504163982 Status: stable Status Narrative Seen with Dr. Victoria. Assessment/Plan Zenpep prescription written Tramadol as needed Return to clinic in 2 months The patient was seen and examined at bedside and all new and available data was reviewed in the patients chart. I agree with the above findings, impression and plan. (Patient seen earlier today. Signature stamp does not reflect patient encounter time.). - Bhargav Victoria MD Subjective Subjective Here for EGD colonoscopy review Stated that her abdominal pain is improved Expressed relief from his Zenpep trial Objective Temperature 98.4 Blood pressure 129/55 72 heart rate 97% on room air General Appearance: WD/WN, no apparent distress, alert Cardiovascular: normal rate Respiratory/Chest: normal breath sounds, no respiratory distress Abdominal Exam: normal bowel sounds, non tender, soft Extremities: normal range of motion, non-tender Tien Henry NP Aug 11, 2018 15:18
== END 2018-08-10 10:40 | disposition home or self-care (01) ==
LOC: PAN 10:10
DX: K29.70 Gastritis, unspecified, without bleeding (principal); R19.7 Diarrhea, unspecified; K21.9 Gastro-esophageal reflux disease without esophagitis; D64.9 Anemia, unspecified
CPT/HCPCS: 99212

== ENCOUNTER 2018-10-12 08:42 | Outpatient (CLI) | payer MEDICARE, OTHER ==
--- NOTE | 2018-10-12 09:16 | General Progress Note ---
Assessment/Plan Problem List: (1) Chronic pain ICD Codes: G89.29 - Chronic pain SNOMED: 41723702 (2) Abdominal pain of unknown etiology ICD Codes: R10.9 - Unspecified abdominal pain SNOMED: 141468445 (3) GERD (gastroesophageal reflux disease) ICD Codes: K21.9 - GERD (gastroesophageal reflux disease) SNOMED: 228719754 (4) Gastritis ICD Codes: K29.70 - Gastritis, unspecified, without bleeding SNOMED: 0127577 (5) Anemia ICD Codes: D64.9 - Anemia, unspecified SNOMED: 676612753 (6) Lupus ICD Codes: M32.9 - Systemic lupus erythematosus, unspecified SNOMED: 78582071 (7) DM2 (diabetes mellitus, type 2) ICD Codes: E11.9 - Type 2 diabetes mellitus without complications SNOMED: 09230175 (8) HTN (hypertension) ICD Codes: I10 - Essential (primary) hypertension SNOMED: 27969632 Assessment/Plan dc Alive refill Zenpep 40 K RTC in 3 months Subjective ROS Limited/Unobtainable: Yes Allergies: Coded Allergies: AMOXICILLIN (Verified Allergy, Unknown, RASH, 06/29/14) CORTISONE (Verified Allergy, Unknown, 06/29/14) KETOROLAC (Verified Allergy, Unknown, 06/29/14) PENICILLINS (Verified Allergy, Unknown, 06/29/14) Subjective feeling good gain weight Objective General Appearance: alert EENT: normal ENT inspection Neck: supple Cardiovascular: normal rate Respiratory/Chest: lungs clear Abdomen: normal bowel sounds, non tender, soft Extremities: non-tender Bhargav Victoria MD Oct 12, 2018 09:16
[2018-10-12] MEDS ORDERED: ZENPEP PO (09:57)
== END 2018-10-12 10:42 | disposition home or self-care (01) ==
LOC: PAN 08:42
DX: G89.29 Other chronic pain (principal); R10.9 Unspecified abdominal pain; K21.9 Gastro-esophageal reflux disease without esophagitis; K29.70 Gastritis, unspecified, without bleeding; D64.9 Anemia, unspecified; M32.9 Systemic lupus erythematosus, unspecified; E11.9 Type 2 diabetes mellitus without complications; I10 Essential (primary) hypertension; Z88.0 Allergy status to penicillin
CPT/HCPCS: G0463

== ENCOUNTER 2018-10-20 10:49 | Emergency (ER) | payer MEDICARE, OTHER ==
[~2018-10-20] VITALS: Ht 165.1 cm; Wt 61.2 kg
[~2018-10-20 10:49] MED LIST changes: +ZENPEP PO
[2018-10-20 11:03] VITALS: BP 155/65
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
[2018-10-20] MEDS ORDERED: HYDROcodone/Acetamin 5/325 tab ORAL ONE (11:15)
[2018-10-20] MEDS ORDERED: CYCLOBENZAPRINE10 MG ORAL (13:17)
[2018-10-20 13:19] VITALS: BP 146/64
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
[2018-10-20 14:09] VITALS: BP 146/64
--- NOTE | 2018-10-20 14:11 | NUR ---
ER DISCHARGE NOTE: Patient is cleared to be discharged per ERMD, pt is aox4, on room air, with stable vital signs. pt was given dc and prescription instructions, pt was able to verbalize understanding, pt is able to ambulate with steady gait. pt took all belongings.
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
== END 2018-10-20 14:11 | disposition home or self-care (01) ==
LOC: EMR 11:50
DX: M54.5 Low back pain (principal); M25.552 Pain in left hip; M54.2 Cervicalgia; I10 Essential (primary) hypertension; J44.9 Chronic obstructive pulmonary disease, unspecified; E11.9 Type 2 diabetes mellitus without complications; I25.10 Atherosclerotic heart disease of native coronary artery without angina pectoris; Z86.73 Personal history of transient ischemic attack (TIA), and cerebral infarction without residual deficits; Z88.0 Allergy status to penicillin; Z88.8 Allergy status to other drugs, medicaments and biological substances
CPT/HCPCS: 72020; 72040; 72170; 73502; 99284

== ENCOUNTER → 2019-07-11 | Outpatient (CLI) | payer MEDICARE, OTHER ==
[~2019-07-11] MED LIST changes: +CYCLOBENZAPRINE10 MG ORAL
--- NOTE | 2019-07-11 16:26 | Diagnostic Imaging Report ---
Indication: Cough Technique: 2 views of the chest Comparison: 06/16/2018 Findings: There is a left chest port catheter again demonstrated. There is spinal stimulator hardware noted. Lungs pleural spaces are clear. Heart size is normal. There is no significant interim change Impression: No acute process
== END | disposition home or self-care (01) ==
LOC: RAD 13:30
DX: R05 Cough (principal); I10 Essential (primary) hypertension
CPT/HCPCS: 71046